=== PATIENT | male | born 1940 | race Caucasian/White ===

== ENCOUNTER 2016-08-21 09:50 | Inpatient (IN) | payer MEDICARE, MEDICAID ==
[2016-08-21] VITALS (8 sets, daily range): BP systolic 94–126; BP diastolic 52–69; PULSE 71–86; RESP 16–18; TEMP 97.5–97.6; O2SAT 96–100
[~2016-08-21] VITALS: Ht 180.3 cm; Wt 98.6 kg
[~2016-08-21 09:50] MED LIST: ASPI81TA82 PO; BUSP10TA PO; DONE10TA14 PO; FLUO20TA20 PO; LISI-363 PO; NAME10TA PO; SENN1TAB11 PO; SIMV40TA PO; VIST25CA PO
[2016-08-21] MEDS ORDERED: SODIUM CHLOR 0.9% 1000 ML INJ 1,000 ML IV ONE ×3 (10:02→12:00)
[2016-08-21] MEDS ORDERED: SODIUM CHLOR 0.9% 1000 ML INJ 700 ML IV ONE (10:02)
--- NOTE | 2016-08-21 10:10 | PD ---
HPI . Altered mental status Chief Complaint: Altered Mental Status Time Seen by Provider: 09:58 Travel History International Travel<30 days: No Contact w/Intl Traveler<30days: No Traveled to known affect area: No History of Present Illness HPI Patient is brought to us by [facility] chief complaint of altered mental status. Medics report that the patient was last seen normal 2 hours ago. He should has dementia. He is unable to give any history at all. EMS reports that the patient was hypotensive and that they have treated him with a liter bolus of fluid. He had only modest improvement of his hypotension with fluid. PFSH Past Medical History Alzheimer's Disease: Yes Autoimmune Disease: No Anxiety: Yes Depression: No Cancer: No Cardiovascular Problems: Yes (HTN) High Cholesterol: Yes Chemotherapy: No Chest Pain: Yes Cerebrovascular Accident: No Dementia: Yes Diabetes: No Diminished Hearing: No Endocrine: No Genitourinary: No Hypertension: Yes Immune Disorder: No Kidney Stones: No Musculoskeletal: No Neurologic: Yes Psychiatric: Yes Reproductive: No Respiratory: No Radiation Therapy: No Renal Failure: No Sickle Cell Disease: No Thyroid Disease: No Past Surgical History Abdominal Surgery: Yes AICD: No Arteriovenous Shunt: No Insulin Pump: No Joint Replacement: No Pacemaker: No Other Surgery: No Social History Alcohol Use: No Tobacco Use: No Substance Use: No Allergies-Medications (Allergen,Severity, Reaction): Coded Allergies: No Known Allergies (Unverified , 08/21/16) Reported Meds & Prescriptions Reported Meds & Active Scripts Active Reported Simvastatin 40 Mg Tab 40 Mg PO HS Donepezil 10 Mg Tab 10 Mg PO HS Buspirone (Buspirone HCl) 10 Mg Tab 20 Mg PO TID Senokot S (Sennosides-Docusate Sodium) 8.6-50 Mg Tab 2 Tab PO DAILY Memantine 10 Mg Tab 10 Mg PO BID Lisinopril 40 Mg Tab 40 Mg PO DAILY Fluoxetine (Fluoxetine HCl) 20 Mg Cap 20 Mg PO DAILY Aspirin 81 Mg Chew 81 Mg CHEW DAILY Review of Systems ROS Limitations: Altered Mental Status Physical Exam Narrative GENERAL: Elderly man lying on the stretcher. His eyes are open but he is not looking around at all. He has no verbal response. He withdraws to painful stimuli. SKIN: Warm and dry. HEAD: Atraumatic. Normocephalic. EYES: Pupils equal and round. ENT: No nasal bleeding or discharge. Mucous membranes pink and moist. NECK: Trachea midline. Neck is supple. CARDIOVASCULAR: Regular rate and rhythm. Heart sounds are normal. RESPIRATORY: No accessory muscle use. Lungs are clear with full air movement throughout. GASTROINTESTINAL: Abdomen soft, non-tender, nondistended. MUSCULOSKELETAL: No obvious deformities. No edema. NEUROLOGICAL: I'm giving him a Reyna Coma score of 9. His baseline is reportedly 13. He does not have any focal findings. PSYCHIATRIC: Unable to assess. Data Data Last Documented VS Vital Signs Date Time Temp Pulse Resp B/P Pulse Ox O2 Delivery O2 Flow Rate FiO2 08/21/16 09:54 97.5 78 18 94/52 96 Orders Electrocardiogram (08/21/16 ) Complete Blood Count With Diff (08/21/16 10:02) Comprehensive Metabolic Panel (08/21/16 10:02) Lactic Acid Sepsis Protocol (08/21/16 10:02) Magnesium (Mg) (08/21/16 10:02) Ckmb (Isoenzyme) Profile (08/21/16 10:02) Troponin I (08/21/16 10:02) Urinalysis - C+S If Indicated (08/21/16 10:02) Blood Culture (08/21/16 10:02) Chest, Single Ap (08/21/16 10:02) Blood Glucose (08/21/16 10:02) Ecg Monitoring (08/21/16 10:02) Iv Access Insert/Monitor (08/21/16 10:02) Oximetry (08/21/16 10:02) Oxygen Administration (08/21/16 10:02) Urinary Catheter Insert/Apply (08/21/16 10:02) Sodium Chlor 0.9% 1000 Ml Inj (Ns 1000 M (08/21/16 10:02) Sodium Chlor 0.9% 1000 Ml Inj (Ns 1000 M (08/21/16 10:02) Sodium Chlor 0.9% 1000 Ml Inj (Ns 1000 M (08/21/16 10:02) CKMB (08/21/16 10:16) CKMB% (08/21/16 10:16) Urine Culture (08/21/16 10:40) Ceftriaxone Inj (Rocephin Inj) (08/21/16 12:00) Ns (Bolus) Inj (08/21/16 12:00) Labs Laboratory Tests Test 08/21/16 08/21/16 10:16 10:40 White Blood Count 20.2 TH/MM3 Red Blood Count 4.91 MIL/MM3 Hemoglobin 14.1 GM/DL Hematocrit 44.6 % Mean Corpuscular Volume 90.8 FL Mean Corpuscular Hemoglobin 28.7 PG Mean Corpuscular Hemoglobin 31.6 % Concent Red Cell Distribution Width 15.4 % Platelet Count 208 TH/MM3 Mean Platelet Volume 9.9 FL Neutrophils (%) (Auto) 80.8 % Lymphocytes (%) (Auto) 9.2 % Monocytes (%) (Auto) 9.5 % Eosinophils (%) (Auto) 0.4 % Basophils (%) (Auto) 0.1 % Neutrophils # (Auto) 16.3 TH/MM3 Lymphocytes # (Auto) 1.9 TH/MM3 Monocytes # (Auto) 1.9 TH/MM3 Eosinophils # (Auto) 0.1 TH/MM3 Basophils # (Auto) 0.0 TH/MM3 CBC Comment DIFF FINAL Differential Comment Sodium Level 157 MEQ/L Potassium Level 5.7 MEQ/L Chloride Level 124 MEQ/L Carbon Dioxide Level 22.3 MEQ/L Anion Gap 11 MEQ/L Blood Urea Nitrogen 148 MG/DL Creatinine 6.11 MG/DL Estimat Glomerular Filtration 9 ML/MIN Rate Random Glucose 89 MG/DL Lactic Acid Level 0.8 mmol/L Calcium Level 8.2 MG/DL Magnesium Level 2.3 MG/DL Total Bilirubin 0.3 MG/DL Aspartate Amino Transf 30 U/L (AST/SGOT) Alanine Aminotransferase 49 U/L (ALT/SGPT) Alkaline Phosphatase 93 U/L Total Creatine Kinase 952 U/L Creatine Kinase MB 5.8 NG/ML Creatine Kinase MB % 0.6 % Troponin I 0.02 NG/ML Total Protein 6.9 GM/DL Albumin 2.8 GM/DL Urine Color YELLOW Urine Turbidity HAZY Urine pH 5.0 Urine Specific [place] 1.025 Urine Protein 30 mg/dL Urine Glucose (UA) NEG mg/dL Urine Ketones NEG mg/dL Urine Occult Blood SMALL Urine Nitrite NEG Urine Bilirubin NEG Urine Urobilinogen 2.0 MG/DL Urine Leukocyte Esterase TRACE Urine RBC 2 /hpf Urine WBC 9 /hpf Urine WBC Clumps RARE Urine Squamous Epithelial <1 /hpf Cells Urine Transitional Epithelial <1 /hpf Cells Urine Amorphous Sediment MOD Urine Bacteria RARE /hpf Urine Hyaline Casts 17 /lpf Urine Mucus FEW /lpf Microscopic Urinalysis Comment CATH-CULTURE IND MDM Medical Decision Making Medical Screen Exam Complete: Yes Emergency Medical Condition: Yes Medical Record Reviewed: Yes Interpretation(s) His EKG shows a sinus rhythm with a right bundle branch block which is not new. His EKG shows no acute ST segment elevation or depression. EKG is unchanged from previous. Differential Diagnosis Differential diagnosis of altered mental status includes but is not limited to infection, electrolyte abnormality, neurological event, intoxication Narrative Course Patient [facility] us from a [facility] with altered mental status. He was hypotensive in the field. Most likely etiology at this point is sepsis. CXR report: "Under aerated; otherwise, negative." The chest x-ray was independently viewed by me. CBC has a white count of 20.2. Lactic acid is 0.8. Chemistries are remarkable for sodium 157, potassium 5.7 chloride 124. BUN/CR 148/6.11. CK is 952. RI is 0.6 and troponin is 0.02. UA shows leukocyte esterase, white blood cell clumps and rare bacteria. So it looks like the source of this patient's mental status is urinary. He is septic and that he has an elevated white blood count and was hypotensive. He also appears to have rhabdomyolysis with an elevated CK. In addition, he has acute renal failure. I have discussed these findings with the patient's . The patient will be admitted to the ICU on the residents' service Critical Care Narrative Aggregate critical care time was 45 minutes. Time to perform other separately billable procedures was not included in the critical care time. My time did not include minutes spent treating any other patients simultaneously or on activities that did not directly contribute to the patient's treatment. The services I provided to this patient were to treat and/or prevent clinically significant deterioration that could result in: Cardiovascular collapse, multiorgan failure, due to sepsis I provided critical care services requiring my management, as noted below: Chart data review, documentation time, medication orders and management, vital sign assessments/reviewing monitor data, ordering and reviewing lab tests, ordering and interpreting/reviewing x-rays and diagnostic studies, care of the patient and discussion of the patient with the admitting physicians. Sepsis Criteria SIRS Criteria (2 or more): WBC > 13667, < 4000 or > 10% bands Severe Sepsis (+one): Hypotension, Acute Oliguria/Renal Failure Septic Shock Criteria: Unresponsive to 30ml/kg fluid bolus Criteria Outcome: Meets severe sepsis criteria, Meets septic shock criteria Diagnosis Primary Impression: Sepsis Qualified Code: A41.9 - Sepsis, due to unspecified organism Additional Impressions: UTI (urinary tract infection) Qualified Code: N30.00 - Acute cystitis without hematuria Acute renal failure Qualified Code: N17.9 - Acute renal failure, unspecified acute renal failure type Rhabdomyolysis Qualified Code: M62.82 - Non-traumatic rhabdomyolysis Admitting Information Admitting Physician Requests: Admit Condition: Stable Sheree Ruiz MD Aug 21, 2016 10:10
--- NOTE | 2016-08-21 10:30 | RADRPT ---
EXAM DATE/TIME: 08/21/2016 10:01 [facility] COMPARISON: CHEST SINGLE AP, February 19, 2016, 16:11. INDICATIONS : Fever MEDICAL HISTORY : None. SURGICAL HISTORY : None. ENCOUNTER: Initial ACUITY: 1 day PAIN SCORE: Non-responsive. LOCATION: Bilateral chest FINDINGS: The lungs are under aerated with minimal bibasilar parenchymal changes. Heart is minimally enlarged. Pulmonary vascularity is normal. CONCLUSION: Under aerated; otherwise, negative. Evens Valle MD FACR on August 21, 2016 at 10:27 Board Certified Radiologist. This report was verified electronically.
[2016-08-21 10:37] LABS: AUTOMATED NEUTROPHIL # 16.3 TH/MM3 (1.8-7.7); BASOPHIL % 0.1 % (0.0-2.0); EOSINOPHIL # 0.1 TH/MM3 (0-0.4); EOSINOPHIL % 0.4 % (0.0-4.0); HEMATOCRIT 44.6 % (39.0-51.0); HEMO FLAGS DIFF FINAL; LYMPH % 9.2 % (9.0-44.0); LYMPHOCYTE # 1.9 TH/MM3 (1.0-4.8); MEAN CELL VOLUME 90.8 FL (80.0-100.0); MEAN CORPUSCULAR HEMOGLOBIN 28.7 PG (27.0-34.0); MEAN CORPUSCULAR HGB CONC 31.6 % (32.0-36.0); MONO % 9.5 % (0.0-8.0); NEUT % 80.8 % (16.0-70.0); PLATELET COUNT 208 TH/MM3 (150-450); RED BLOOD COUNT 4.91 MIL/MM3 (4.50-5.90); RED CELL DISTRIBUTION WIDTH 15.4 % (11.6-17.2); WHITE BLOOD COUNT 20.2 TH/MM3 (4.0-11.0)
[2016-08-21] MEDS ORDERED: LISI40TA PO (10:49)
[2016-08-21] MEDS ORDERED: BUSP10TA PO (10:49)
[2016-08-21] MEDS ORDERED: SIMV40TA PO (10:49)
[2016-08-21] MEDS ORDERED: SENN1TAB17 PO (10:49)
[2016-08-21] MEDS ORDERED: DONE10TA7 PO (10:49)
[2016-08-21] MEDS ORDERED: MEMA1TAB2 PO (10:49)
[2016-08-21] MEDS ORDERED: FLUO20CA4 PO (10:49)
[2016-08-21] MEDS ORDERED: ASPI81CH CHEW (10:49)
[2016-08-21 10:56] LABS: ALKALINE PHOSPHATASE 93 U/L (45-117); ALT (GPT) 49 U/L (12-78); ANION GAP 11 MEQ/L (5-15); AST (GOT) 30 U/L (15-37); BICARBONATE 22.3 MEQ/L (21.0-32.0); CHLORIDE 124 MEQ/L (98-107); CREATINE KINASE 952 U/L (39-308); GLOMERULAR FILTRATION RATE 9 ML/MIN (>89); MAGNESIUM 2.3 MG/DL (1.5-2.5); POTASSIUM 5.7 MEQ/L (3.5-5.1); TOTAL BILIRUBIN ADULT 0.3 MG/DL (0.2-1.0)
[2016-08-21 10:57] LABS: BLOOD UREA NITROGEN 148 MG/DL (7-18)
[2016-08-21 11:02] LABS: SODIUM (NA) 157 MEQ/L (136-145)
[2016-08-21 11:13] LABS: BACTERIA, URINE RARE /hpf; BLOOD, URINE SMALL (NEG); GLUCOSE,URINE NEG (NEG); HYALINE CAST, URINE 17 /lpf (RARE); KETONE, URINE NEG (NEG); MUCUS URINE FEW /lpf (OCC); NITRITE,URINE NEG (NEG); SQUAMOUS EPITHELIAL CELL URINE <1 /hpf (0-5); TRANSITIONAL EPI CELLS, URINE <1 /hpf; URINE COLOR YELLOW (YELLW/STRAW)
[2016-08-21 11:14] LABS: COMMENT (UR) CATH-CULTURE IND; CULTURE IF INDICATED CATH CULTURE IND
[2016-08-21 11:20] LABS: CKMB 5.8 NG/ML (0.5-3.6)
[2016-08-21] MEDS ORDERED: cefTRIAXone INJ 1,000 MG in SODIUM CHLORIDE 0.9% INJ 100 ML IV ONE (12:00)
--- NOTE | 2016-08-21 12:01 | HHI.HP ---
[facility] Service Family Medicine Primary Care Physician Unknown Admission Diagnosis Diagnoses: Chief Complaint: Altered Mental Status International Travel<30 Days: No Contact w/Intl Traveler<30days: No Known Affected Area: No History of Present Illness 75 year old male with PMH of dementia, HTN, HLD brought to ED by [facility] from his living facility [facility] after being found with altered mental status moreso than his baseline. His is present in the ED to provide some history , however she has been undergoing chemotherapy thus has not been visiting the living facility as much as usual. states she was called by [facility] this AM after the patient was not responding. She was told the patient was found in his bed with altered mental status and not verbal, and remained not verbal after sternal rub. Patient has been living at [facility] since mid 2015. states at baseline patient is able to walk around for short periods of time, feeding needs to be assisted. He usually does not remember who she is. states his last fall was about one month ago; reports it was a mild fall with no significant trauma. He does have tremors which are baseline per . She is not aware of any recent fevers, chills, and states she has not been told of any adverse events while patient has been living at [facility] recently. ( Emerson Stringer MD R1) Review of Systems ROS Limitations: Clinical Condition, Altered Mental Status (Emerson Stringer MD R1) Past Family Social History Past Medical History Dementia for about 17 years per HTN HLD Constipation Past Surgical History None (Emerson Stringer MD R1) Allergies: Coded Allergies: No Known Allergies (Unverified , 08/21/16) Family History Negative Social History Tobacco: h/o heavy smoking, none for many years Etoh: previously on social occasions only (Emerson Stringer MD R1) Physical Exam Vital Signs Vital Signs Date Time Temp Pulse Resp B/P Pulse Ox O2 Delivery O2 Flow Rate FiO2 08/21/16 09:54 97.5 78 18 94/52 96 Physical Exam GENERAL: Lying in bed in no apparent distress NEURO: Sleepy, nonverbal, unable to follow commands, pupils are pinpoint about 2mm equal and reactive to light, able to move all extremities spontaneously. Jerky movements of extremities intermittently. Unable to assess for strength or sensation. SKIN: Warm and dry. No rashes or erythema. HEAD: Normocephalic. Atraumatic. EYES: PERRL. No scleral icterus. No injection or drainage. ENT: No nasal drainage. Moist mucous membranes. Appears as if there is vomitus in posterior oropharynx. NECK: Supple, trachea midline. No JVD or lymphadenopathy. CARDIOVASCULAR: Distant heart sounds. No murmur appreciated. Peripheral pulses 2 +. Capillary refill < 2 seconds. RESPIRATORY: Decreased aeration throughout, rhonchi scattered, no wheezing or rales. No accessory muscle use. GASTROINTESTINAL: Abdomen soft, appears to be nontender, nondistended, normal BS. Probably stool on palpation. Extremities: No edema. Laboratory Laboratory Tests Test 08/21/16 08/21/16 10:16 10:40 White Blood Count 20.2 Red Blood Count 4.91 Hemoglobin 14.1 Hematocrit 44.6 Mean Corpuscular Volume 90.8 Mean Corpuscular Hemoglobin 28.7 Mean Corpuscular Hemoglobin 31.6 Concent Red Cell Distribution Width 15.4 Platelet Count 208 Mean Platelet Volume 9.9 Neutrophils (%) (Auto) 80.8 Lymphocytes (%) (Auto) 9.2 Monocytes (%) (Auto) 9.5 Eosinophils (%) (Auto) 0.4 Basophils (%) (Auto) 0.1 Neutrophils # (Auto) 16.3 Lymphocytes # (Auto) 1.9 Monocytes # (Auto) 1.9 Eosinophils # (Auto) 0.1 Basophils # (Auto) 0.0 CBC Comment DIFF FINAL Differential Comment Sodium Level 157 Potassium Level 5.7 Chloride Level 124 Carbon Dioxide Level 22.3 Anion Gap 11 Blood Urea Nitrogen 148 Creatinine 6.11 Estimat Glomerular Filtration 9 Rate Random Glucose 89 Lactic Acid Level 0.8 Calcium Level 8.2 Magnesium Level 2.3 Total Bilirubin 0.3 Aspartate Amino Transf 30 (AST/SGOT) Alanine Aminotransferase 49 (ALT/SGPT) Alkaline Phosphatase 93 Total Creatine Kinase 952 Creatine Kinase MB 5.8 Creatine Kinase MB % 0.6 Troponin I 0.02 Total Protein 6.9 Albumin 2.8 Urine Color YELLOW Urine Turbidity HAZY Urine pH 5.0 Urine Specific [place] 1.025 Urine Protein 30 Urine Glucose (UA) NEG Urine Ketones NEG Urine Occult Blood SMALL Urine Nitrite NEG Urine Bilirubin NEG Urine Urobilinogen 2.0 Urine Leukocyte Esterase TRACE Urine RBC 2 Urine WBC 9 Urine WBC Clumps RARE Urine Squamous Epithelial <1 Cells Urine Transitional Epithelial <1 Cells Urine Amorphous Sediment MOD Urine Bacteria RARE Urine Hyaline Casts 17 Urine Mucus FEW Microscopic Urinalysis Comment CATH-CULTURE IND Date/Time Procedure Status Source Growth 08/21/16 10:40 Urine Culture Received Urine Clean Catch Pending 08/21/16 10:16 Aerobic Blood Culture Received Blood Peripheral Pending 08/21/16 10:16 Anaerobic Blood Culture Received Blood Peripheral Pending (Emerson Stringer MD R1) Result Diagram: 08/21/16 1016 08/21/16 1016 Imaging Last 48 hours Impressions Chest X-Ray 08/21/16 1002 Signed Impressions: Service Date/Time: Sunday, August 21, 2016 10:01 - CONCLUSION: Under aerated ; otherwise, negative. Evens Valle MD FACR Renal Ultrasound 08/21/16 0000 Signed Impressions: Service Date/Time: Sunday, August 21, 2016 15:02 - CONCLUSION: Unremarkable kidneys. Limited evaluation of the nondistended bladder. Titus Polk MD Head CT 08/21/16 0000 Signed Impressions: Service Date/Time: Sunday, August 21, 2016 13:10 - CONCLUSION: Atrophy otherwise negative. Evens Valle MD FACR Abdomen X-Ray 08/21/16 0000 Signed Impressions: Service Date/Time: Sunday, August 21, 2016 16:22 - CONCLUSION: 1. No bowel obstruction, ileus or perforation. 2. Degenerative changes and scoliosis of the thoracolumbar spine. 3. Degenerative changes involving the hip joints bilaterally. Tiuts Polk MD (Emerson Stringer MD R1) Septic Shock Reassessment Heart: Regular rate and rhythm Lungs: Course Skin: Warm, Dry Peripheral Pulses: Bounding Right Radial Bounding Left Radial Bounding Right Dorsalis Pedis Bounding Left Dorsalis Pedis Bounding Right Posterior Tibial Bounding Left Posterior Tibial Capillary Refill: <2 seconds (Emerson Stringer MD R1) Assessment and Plan Assessment and Plan 75 year old male with PMH of dementia, HTN, HLD with: Code Status DNR/DNI Discussed Condition With sdw Dr. Loulou Greenwood (Emerson Stringer MD R1) Attending Attestation The patient has been seen and examined. The chart and all resident notes have been reviewed. I agree that inpatient care is appropriate and that a two midnight stay is expected for the reasons documented in the resident history and physical. I have discussed this with the resident and certify the resident s order for inpatient admission. (Sheree Greenwood MD) Problem List: (1) Sepsis Status: Acute Plan: Source is likely urinary vs aspiration CXR appears to be under aerated but is otherwise negative Received Rocephin 1gm IV in ED Will continue with Rocephin and Clindamycin to cover for UTI and aspiration respectively Follow blood and urine cultures Received 4L of NS boluses in the ED Will continue with maintenance IVF of NS at 150 mL/hr (2) Hypernatremia Status: Acute Plan: Na 157 on admission, indicating significant free water deficit Continue with NS at 150 mL/hr, switch to 1/2NS if Na does not downtrend adequately on repeat BMP Goal for no more than 10 mEq/L decrease within first 24 hours (3) Hypotension Status: Acute Plan: 94/52 on admission s/p 4L NS in ED Continue maintenance IVF If BP is refractory to IVF, will have to initiate pressors likely Levophed and will place consult to critical care who is aware of patient (4) Hyperkalemia Status: Acute Plan: K 5.7 on admission IVF as above Repeat BMP after IVF administration Consider Insulin + glucose or kayexalate if K does not improve (5) Metabolic acidosis with respiratory acidosis Status: Acute Plan: Initial VBG shows mixed metabolic and respiratory acidosis Will repeat VBG and add bicarb if no improvement (6) Rhabdomyolysis Status: Acute Plan: Per nephrology elevated CK should not be significant enough to account for acute renal insufficiency IVF as above (7) Dehydration Status: Acute Plan: IVF as above Monitor intake and output Trend BMPs (8) ARF (acute renal failure) Status: Acute Plan: Likely due to dehydration, per nephrology rhabdomyolysis should not be significant enough to account for this patients ARF UOP is adequate after IVF administration Urine is clear Renal US is unremarkable (9) Altered mental status Status: Acute Plan: Secondary to sepsis due to UTI or aspiration, dehydration or electrolyte imbalance also contributing Management as above (10) Dementia Status: Chronic Plan: Chronic, end-stage dementia Resume home memantine once stable (11) Nutrition, metabolism, and development symptoms Status: Acute Plan: Fluids as above Monitor electrolytes closely and adjust management as indicated NPO for now DVT Prophylaxis with heparin 5000 units subq q12h (Emerson Stringer MD R1) Physician Certification 2 Midnight Certification Type: Admission for Inpatient Services Order for Inpatient Services The services are ordered in accordance with Medicare regulations or non- Medicare payer requirements, as applicable. In the case of services not specified as inpatient-only, they are appropriately provided as inpatient services in accordance with the 2-midnight benchmark. Estimated LOS (days): 2 days is the estimated time the patient will need to remain in the hospital, assuming treatment plan goals are met and no additional complications. Post-Hospital Plan: Home (Emerson Stringer MD R1) Emerson Stringer MD R1 Aug 21, 2016 12:01 Sheree Greenwood MD Aug 22, 2016 08:12
[2016-08-21] MEDS ORDERED: NALOXONE HCL 0.4 MG/ML AMP IV PRN ×2 (12:15→13:00)
[2016-08-21] MEDS ORDERED: SODIUM CHLORIDE 0.9% FLUSH 5 ML FLUSH FLUSH PRN (12:15)
[2016-08-21] MEDS ORDERED: ACETAMINOPHEN 325 MG TAB PO PRN (12:15)
[2016-08-21] MEDS ORDERED: ONDANSETRON HCL 4 MG/2 ML VIAL IVP PRN (12:15)
[2016-08-21] MEDS ORDERED: MORPHINE SULFATE 4 MG/ML INJ IV PRN (13:00)
[2016-08-21] MEDS ORDERED: SODIUM CHLOR 0.9% 1000 ML INJ 1,000 ML IV SCH (13:00)
[2016-08-21 13:09] LABS: BLOOD GAS VENOUS BASE EXCESS -6.6 mmol/L (-2-2); BLOOD GAS VENOUS HCO3 20 mmol/L (22-26); BLOOD GAS VENOUS O2 CONTENT 6.1 Vol % (9.0-17.0); BLOOD GAS VENOUS O2 HGB SAT 32 % (70-76); BLOOD GAS VENOUS PCO2 49 mmHg (44-48); BLOOD GAS VENOUS PO2 24 mmHg (35-40); BLOOD GAS VENOUS pH 7.23 (7.360-7.400); TEMP CORR TO 98.6
[2016-08-21 13:10] LABS: CRITICAL VALUE YES; DRAW SITE NURSE; FIO2 21 %; STAT YES
[2016-08-21] MEDS ORDERED: CHLORHEXIDINE GLUCONATE 2 % 1 PACK (2 CLOTHS) TOP PRN (13:15)
[2016-08-21] MEDS ORDERED: MISCELLANEOUS NURSING INFORMATION XX SCH (13:15)
[2016-08-21] MEDS: HEPARIN SODIUM - SQ 10,000 UNITS/ML VIAL SQ SCH ×2 (13:22→23:22)
--- NOTE | 2016-08-21 13:38 | RADRPT ---
EXAM DATE/TIME: 08/21/2016 13:10 [facility] COMPARISON: CT BRAIN W/O CONTRAST, February 19, 2016, 17:04. INDICATIONS : Altered mental status. RADIATION DOSE: 69.15 CTDIvol (mGy) MEDICAL HISTORY : Dementia. Alzheimer's. Hypertension. SURGICAL HISTORY : None. ENCOUNTER: Initial ACUITY: 1 day PAIN SCALE: Non-responsive LOCATION: cranial TECHNIQUE: Multiple contiguous axial images were obtained of the head. Using automated exposure control and adj ustment of the mA and/or kV according to patient size, radiation dose was kept as low as reasonably a chievable to obtain optimal diagnostic quality images. FINDINGS: There is marked central and cortical atrophy with dilatation of ventricular and sulcal spaces. There is no parenchymal hemorrhage, acute infarction or mass lesion identified. There are no extra-a xial fluid collections appreciated. The posterior fossa is unremarkable with midline fourth ventricl e. The portion of the orbits and paranasal sinuses visualized are unremarkable. CONCLUSION: Atrophy otherwise negative. Evens Valle MD FACR on August 21, 2016 at 13:35 Board Certified Radiologist. This report was verified electronically.
[2016-08-21 14:01] LABS: AMPHETAMINE, URINE NEG (NEG); BARBITURATES, URINE NEG (NEG); COCAINE, URINE NEG (NEG)
--- NOTE | 2016-08-21 14:24 | EKG ---
Date Performed: 08/21/2016 Time Performed: 10:02:13 PTAGE: 75 years EKG: Sinus rhythm RIGHT BUNDLE BRANCH BLOCK LEFT ANTERIOR FASCICULAR BLOCK ABNORMAL ECG PREVIOUS TRACING : 02/19/2016 15.44 Compared to the previous tracing, previous non-specific ST/ T wave changes not noted now DOCTOR: Blake Henao Interpretating Date/Time 08/21/2016 14:22:34
[2016-08-21] MEDS: CLINDAMYCIN INJ 600 MG in SODIUM CHLORIDE 0.9% INJ 100 ML IV SCH ×2 (14:37→20:33)
--- NOTE | 2016-08-21 16:17 | RADRPT ---
EXAM DATE/TIME: 08/21/2016 15:02 [facility] COMPARISON: No previous studies available for comparison. INDICATIONS : Abnormal labs. MEDICAL HISTORY : Dementia. Alzheimer's. Hypercholesterolemia. Hypertension. SURGICAL HISTORY : Impacted bowel surgery. ENCOUNTER: Initial ACUITY: 1 day PAIN SCORE: Nonresponsive. LOCATION: Bilateral flank MEASUREMENTS: RIGHT KIDNEY: 10.8 x 6.0 x 6.2 cm LEFT KIDNEY: 11.2 x 4.8 x 6.4 cm FINDINGS: RIGHT KIDNEY: Renal cortex is normal in thickness and echotexture. No hydronephrosis, stone, or mass. LEFT KIDNEY: Renal cortex is normal in thickness and echotexture. No hydronephrosis, stone, or mass. BLADDER: A Weems catheter is noted within the urinary bladder which is nondistended. The bladder evaluation is limited due to nondistention. CONCLUSION: Unremarkable kidneys. Limited evaluation of the nondistended bladder. Titus Polk MD on August 21, 2016 at 16:14 Board Certified Radiologist. This report was verified electronically.
--- NOTE | 2016-08-21 16:27 | PD.CONS ---
HPI Consult Requested By Reason for Consult Acute renal insufficiency Hyponatremia/hyperkalemia. Primary Care Physician Unknown History of Present Illness Patient unable to provide meaningful history himself secondary to mental status/ dementia. Patient apparently is institutionalized at a [place] [facility]. Previous history of dehydration back in February at which time his creatinine was 2.6 subsequent only 1.4 at time of discharge. His is by the bedside indicating that the patient had a tendency to have poor oral intake of fluid. Is also a history of hypertension. Patient was in with altered mental status subsequent noted to have a serum sodium level CLVII, potassium 5.7 and a creatinine of 6.11. CPK level was 954 on presentation. There is no history suggesting diarrhea or emesis. Patient was on lisinopril as an outpatient. Also simvastatin. Review of Systems ROS Limitations: Clinical Condition, Altered Mental Status Past Family Social History Allergies: Coded Allergies: No Known Allergies (Unverified , 08/21/16) Past Medical History Dementia Hypertension Previous dehydration. Past Surgical History Unobtainable from patient. Reported Medications Reported Meds & Active Scripts Active Reported Simvastatin 40 Mg Tab 40 Mg PO HS Donepezil 10 Mg Tab 10 Mg PO HS Buspirone (Buspirone HCl) 10 Mg Tab 20 Mg PO TID Senokot S (Sennosides-Docusate Sodium) 8.6-50 Mg Tab 2 Tab PO DAILY Memantine 10 Mg Tab 10 Mg PO BID Lisinopril 40 Mg Tab 40 Mg PO DAILY Fluoxetine (Fluoxetine HCl) 20 Mg Cap 20 Mg PO DAILY Aspirin 81 Mg Chew 81 Mg CHEW DAILY Active Ordered Medications Current Medications Sodium Chloride 1,000 ml @ 1,000 mls/hr Q1H ONCE IV Last administered on 10:35; Start 08/21/16 at 10:02; Stop 08/21/16 at 11:01; Status DC Sodium Chloride 1,000 ml @ 1,000 mls/hr Q1H ONCE IV Last administered on 10:35; Start 08/21/16 at 10:02; Stop 08/21/16 at 11:01; Status DC Sodium Chloride 700 ml @ 1,000 mls/hr Q42M ONCE IV Last administered on 11:19; Start 08/21/16 at 10:02; Stop 08/21/16 at 10:43; Status DC Ceftriaxone Sodium 1000 mg/ Sodium Chloride 100 ml @ 200 mls/hr ONCE ONCE IV Last administered on 08/21/16 12:18; Start 08/21/16 at 12:00; Stop 08/21/16 at 12: 29; Status DC Sodium Chloride 1,000 ml @ 999 mls/hr BOLUS ONCE IV Last administered on 12:18; Start 08/21/16 at 12:00; Stop 08/21/16 at 13:00; Status DC Sodium Chloride (NS 1000 ml Inj) 1,000 ml @ 130 mls/hr Q7H42M IV Last administered on 08/21/16 12:55; Start 08/21/16 at 13:00 IV Flush (NS Flush) 2 ml UNSCH PRN FLUSH FLUSH AFTER USING IV ACCESS; Start 08/21/16 at 12:15 IV Flush (NS Flush) 2 ml BID FLUSH ; Start 08/21/16 at 21:00 Acetaminophen (Tylenol) 650 mg Q4H PRN PO TEMP > 100.4; Start 08/21/16 at 12:15 Ondansetron HCl (Zofran Inj) 4 mg Q6H PRN IVP NAUSEA OR VOMITING; Start at 12:15 Heparin Sodium (Porcine) (Heparin Inj) 5,000 units Q12H SQ Last administered on 08/21/16 13:22; Start 08/21/16 at 13:00 Naloxone HCl 0.4 mg 0.4 mg UNSCH PRN IV SEE LABEL COMMENTS; Start 08/21/16 at 12 :15 Ceftriaxone Sodium 1000 mg/ Sodium Chloride 100 ml @ 200 mls/hr Q24H IV ; Start 08/22/16 at 12:00; Stop 08/22/16 at 12:00; Status DC Clindamycin Phosphate/Sodium Chloride (Cleocin Inj/NS Inj) 104 ml @ 208 mls/hr Q8H IV Last administered on 08/21/16 14:37; Start 08/21/16 at 14:00 Morphine Sulfate (Morphine Inj) 2 mg Q4HR PRN IV Pain5-10; if unable to take PO ; Start 08/21/16 at 13:00 Naloxone HCl (Narcan Inj) 0.4 mg UNSCH PRN IV SEE LABEL COMMENTS; Start at 13:00; Stop 08/21/16 at 13:20; Status DC Pantoprazole Sodium (Protonix Inj) 40 mg Q24H IV PUSH ; Start 08/21/16 at 21:00 Miscellaneous Information 1 Q361D XX ; Start 08/21/16 at 13:15 Chlorhexidine Gluconate (Chlorhexidine 2% Cloth) 3 pack Taper DAILY@04 TOP ; Start 08/22/16 at 04:00; Stop 08/18/17 at 03:59 Chlorhexidine Gluconate 3 pack 3 pack UNSCH PRN TOP HYGIENIC CARE; Start at 13:15 Ceftriaxone Sodium/Sodium Chloride (Rocephin Inj/NS Inj) 100 ml @ 200 mls/hr Q24H IV ; Start 08/22/16 at 12:00 Family History Unobtainable from patient. Social History Per records history of heavy tobacco usage in the past. Physical Exam Vital Signs Vital Signs Date Time Temp Pulse Resp B/P Pulse Ox O2 Delivery O2 Flow Rate FiO2 08/21/16 15:13 71 17 106/60 98 Room Air 08/21/16 13:14 98 21 08/21/16 12:43 86 17 112/69 100 Room Air 08/21/16 09:54 97.5 78 18 94/52 96 Physical Exam GENERAL: Elderly male lying in bed not in respiratory distress. SKIN: Warm and dry. Skin turgor is somewhat diminished. HEAD: Normocephalic. EYES: No scleral icterus. No injection or drainage. NECK: Supple, trachea midline. No JVD or lymphadenopathy. CARDIOVASCULAR: Regular rate and rhythm without murmurs, gallops, or rubs. RESPIRATORY: Breath sounds equal bilaterally. No accessory muscle use. GASTROINTESTINAL: Abdomen soft, non-tender, nondistended. Weems catheter in place urine is yellow and clear. MUSCULOSKELETAL: No cyanosis, or edema. BACK: Nontender without obvious deformity. No CVA tenderness. Laboratory Laboratory Tests Test 08/21/16 08/21/16 08/21/16 08/21/16 10:16 10:40 12:35 13:05 White Blood Count 20.2 Red Blood Count 4.91 Hemoglobin 14.1 Hematocrit 44.6 Mean Corpuscular Volume 90.8 Mean Corpuscular Hemoglobin 28.7 Mean Corpuscular Hemoglobin 31.6 Concent Red Cell Distribution Width 15.4 Platelet Count 208 Mean Platelet Volume 9.9 Neutrophils (%) (Auto) 80.8 Lymphocytes (%) (Auto) 9.2 Monocytes (%) (Auto) 9.5 Eosinophils (%) (Auto) 0.4 Basophils (%) (Auto) 0.1 Neutrophils # (Auto) 16.3 Lymphocytes # (Auto) 1.9 Monocytes # (Auto) 1.9 Eosinophils # (Auto) 0.1 Basophils # (Auto) 0.0 CBC Comment DIFF FINAL Differential Comment Sodium Level 157 Potassium Level 5.7 Chloride Level 124 Carbon Dioxide Level 22.3 Anion Gap 11 Blood Urea Nitrogen 148 Creatinine 6.11 Estimat Glomerular Filtration 9 Rate Random Glucose 89 Lactic Acid Level 0.8 Calcium Level 8.2 Magnesium Level 2.3 Total Bilirubin 0.3 Aspartate Amino Transf 30 (AST/SGOT) Alanine Aminotransferase 49 (ALT/SGPT) Alkaline Phosphatase 93 Total Creatine Kinase 952 Creatine Kinase MB 5.8 Creatine Kinase MB % 0.6 Troponin I 0.02 Total Protein 6.9 Albumin 2.8 Urine Color YELLOW Urine Turbidity HAZY Urine pH 5.0 Urine Specific Dalton 1.025 Urine Protein 30 Urine Glucose (UA) NEG Urine Ketones NEG Urine Occult Blood SMALL Urine Nitrite NEG Urine Bilirubin NEG Urine Urobilinogen 2.0 Urine Leukocyte Esterase TRACE Urine RBC 2 Urine WBC 9 Urine WBC Clumps RARE Urine Squamous Epithelial <1 Cells Urine Transitional Epithelial <1 Cells Urine Amorphous Sediment MOD Urine Bacteria RARE Urine Hyaline Casts 17 Urine Mucus FEW Microscopic Urinalysis Comment CATH-CULTURE IND Urine Opiates Screen NEG Urine Barbiturates Screen NEG Urine Amphetamines Screen NEG Urine Benzodiazepines Screen NEG Urine Cocaine Screen NEG Urine Cannabinoids Screen NEG Blood Gas Puncture Site NURSE Blood Gas Patient Temperature 98.6 Venous Blood pH 7.23 Venous Blood Partial Pressure 49 CO2 Venous Blood Partial Pressure 24 O2 Venous Blood HCO3 20 Venous Blood Oxygen Saturation 32 Venous Blood Oxygen Content 6.1 Venous Blood Base Excess -6.6 Blood Gas Inspired Oxygen 21 Ammonia 19 Date/Time Procedure Status Source Growth 08/21/16 10:40 Urine Culture Received Urine Clean Catch Pending 08/21/16 10:16 Aerobic Blood Culture Received Blood Peripheral Pending 08/21/16 10:16 Anaerobic Blood Culture Received Blood Peripheral Pending Result Diagram: 08/21/16 1016 08/21/16 1016 Imaging Last 48 hours Impressions Chest X-Ray 08/21/16 1002 Signed Impressions: Service Date/Time: Sunday, August 21, 2016 10:01 - CONCLUSION: Under aerated ; otherwise, negative. Evens Valle MD FACR Head CT 08/21/16 0000 Signed Impressions: Service Date/Time: Sunday, August 21, 2016 13:10 - CONCLUSION: Atrophy otherwise negative. Evens Valle MD FACR Assessment and Plan Problem List: (1) Acute kidney insufficiency Plan: Given clinical presentation presence of hyponatremia primary consideration at this point in time is acute renal insufficiency secondary to dehydration with a significant free water deficit of approximately 5+ liters. CPK level is elevated however elevation does not seem to indicate significant degree of rhabdomyolysis to account for the patient's acute renal insufficiency and the urinalysis only shows small amount of blood not suggestive of significant myoglobinuria. Also the patient's urine output appears to be improved with hydration and is clear. Await results of renal ultrasound to determine whether or not there was significant evidence for obstructive uropathy also. Hopefully the patient has not developed acute kidney injury. Medications should be adjusted for the patient's estimated GFR if clinically indicated. Avoid agents with significant potential for nephrotoxicity possible including NSAIDs for analgesia, iodine contrast agents. Gadolinium is contraindicated if the GFR is below 30. (2) Hypernatremia Plan: Indicative of significant free water deficit. Replace half water deficit within 24 hours in addition to maintenance fluid requirement. (3) Hyperkalemia Plan: Should improve with hydration and improved renal clearances. Agree with repeat potassium level. (4) CKD (chronic kidney disease) stage 3, GFR 30-59 ml/min Plan: I suspect the patient does have some degree of underlying running medical renal disease secondary to nephrosclerosis of hypertension and aging. (5) Hypertension Plan: Given the patient's predisposition to dehydration I believe it would be prudent to avoid utilization of ESTEPHANIA inhibitor and angiotensin receptor blockers for blood pressure management as these medications can exacerbate azotemia in the setting of dehydration. Consider utilizing a calcium channel nidhi or other class of agent. Assessment and Plan Suspect the patient's azotemia will improve with current management. If so he will be seen on an as necessary basis. please call if additional questions. Discussed Condition With Medical residents and patient's . Liz Bennett MD Aug 21, 2016 16:27
--- NOTE | 2016-08-21 16:38 | RADRPT ---
EXAM DATE/TIME: 08/21/2016 16:22 [facility] COMPARISON: No previous studies available for comparison. INDICATIONS : Evaluate for obstruction. MEDICAL HISTORY : Hypertension. Hypercholesterolemia. SURGICAL HISTORY : None. ENCOUNTER: Initial ACUITY: 1 day PAIN SCORE: Non-responsive. LOCATION: Bilateral abdomen. FINDINGS: Supine view of the abdomen was performed. The abdominal bowel gas pattern is normal. No abnormal ma sses, calcifications, or organomegaly is seen. Degenerative changes and scoliosis of the thoraco-lumb ar spine are noted. Degenerative changes are noted involving the hip joints bilaterally. CONCLUSION: 1. No bowel obstruction, ileus or perforation. 2. Degenerative changes and scoliosis of the thoracolumbar spine. 3. Degenerative changes involving the hip joints bilaterally. Titus Polk MD on August 21, 2016 at 16:34 Board Certified Radiologist. This report was verified electronically.
[2016-08-21 16:53] LABS: BICARBONATE 22.4 MEQ/L (21.0-32.0); POTASSIUM 5.6 MEQ/L (3.5-5.1)
--- NOTE | 2016-08-21 17:12 | HHI.FPPN ---
Subjective Subjective Patient seen and examined. Case reviewed and discussed. Please refer to resident H&P for further details regarding history of present illness, ROS, past medical and surgical history, family and social history. In summary, patient is a 75-year-old male presenting from [facility] with a history of known dementia and acute change in mental status. At baseline, the patient is known to interact with those around him, but was brought to the emergency room earlier today after he was unarousable to painful stimuli. At the time of my encounter, patient is seen in the emergency room. and close family friend are at the bedside by which history is gathered. In the emergency room, patient received 4 L normal saline boluses. Blood pressures are now slightly improved. [facility] Objective Objective Last Impressions Chest X-Ray 08/21/16 1002 Signed Impressions: Service Date/Time: Sunday, August 21, 2016 10:01 - CONCLUSION: Under aerated ; otherwise, negative. Evens Valle MD FACR Renal Ultrasound 08/21/16 0000 Signed Impressions: Service Date/Time: Sunday, August 21, 2016 15:02 - CONCLUSION: Unremarkable kidneys. Limited evaluation of the nondistended bladder. Titus Polk MD Head CT 08/21/16 0000 Signed Impressions: Service Date/Time: Sunday, August 21, 2016 13:10 - CONCLUSION: Atrophy otherwise negative. Evens Valle MD FACR Abdomen X-Ray 08/21/16 0000 Signed Impressions: Service Date/Time: Sunday, August 21, 2016 16:22 - CONCLUSION: 1. No bowel obstruction, ileus or perforation. 2. Degenerative changes and scoliosis of the thoracolumbar spine. 3. Degenerative changes involving the hip joints bilaterally. Titus Polk MD Laboratory Tests - Abnormals Test 08/21/16 08/21/16 08/21/16 10:16 10:40 12:35 White Blood Count 20.2 TH/MM3 Mean Corpuscular Hemoglobin 31.6 % Concent Neutrophils (%) (Auto) 80.8 % Monocytes (%) (Auto) 9.5 % Neutrophils # (Auto) 16.3 TH/MM3 Monocytes # (Auto) 1.9 TH/MM3 Sodium Level 157 MEQ/L Potassium Level 5.7 MEQ/L Chloride Level 124 MEQ/L Blood Urea Nitrogen 148 MG/DL Creatinine 6.11 MG/DL Estimat Glomerular Filtration 9 ML/MIN Rate Calcium Level 8.2 MG/DL Total Creatine Kinase 952 U/L Creatine Kinase MB 5.8 NG/ML Albumin 2.8 GM/DL Urine Turbidity HAZY Urine Protein 30 mg/dL Urine Occult Blood SMALL Urine Leukocyte Esterase TRACE Urine WBC 9 /hpf Urine WBC Clumps RARE Urine Bacteria RARE /hpf Urine Mucus FEW /lpf Venous Blood pH 7.23 Venous Blood Partial Pressure 49 mmHg CO2 Venous Blood Partial Pressure 24 mmHg O2 Venous Blood HCO3 20 mmol/L Venous Blood Oxygen Saturation 32 % Venous Blood Oxygen Content 6.1 Vol % Venous Blood Base Excess -6.6 mmol/L Vital Signs 08/21/16 08/21/16 08/21/16 08/21/16 09:54 12:43 13:14 15:13 Temp 97.5 Pulse 78 86 71 Resp 18 B/P 94/52 112/69 106/60 Pulse Ox 96 100 98 98 O2 Delivery Room Air Room Air FiO2 21 Physical exam GENERAL: Elderly male, WDWN. Resting in bed, intermittent agitation. SKIN: Warm and dry. No rashes or lesions. HEAD: Normocephalic. Atraumatic EYES: No scleral icterus. No injection or drainage. ENT: OP with vomitus, dentures. NECK: Supple, trachea midline. No JVD or lymphadenopathy. CARDIOVASCULAR: Regular rate and rhythm without audible murmurs, gallops, or rubs. RESPIRATORY: Breath sounds equal bilaterally, poor air movement, rhonchorous. No accessory muscle use. GASTROINTESTINAL: Abdomen soft, non-tender, nondistended. Mildly hypoactive bowel sounds. No rebound. MUSCULOSKELETAL: No cyanosis, or edema. No apparent calf tenderness. Pulse ox on right foot. BACK: Nontender without obvious deformity. No CVA tenderness. Neuro: Sleepy, eyes clenched closed, intermittently opens them. Does not follow commands, nonverbal. Moves all extremities well. Assessment Assessment 75-year-old male admitted with: Sepsis secondary to UTI versus aspiration Altered mental status Metabolic and respiratory acidosis Leukocytosis Acute renal failure with electrolyte disturbance Hyperkalemia Hypernatremia Dehydration Rule out cerebrovascular event Rhabdomyolysis PLAN PLAN Aggressive fluid resuscitation Blood cultures and urine cultures Renal ultrasound Empiric antibiotic therapy Speech therapy CT head, consider noncontrast MRI in the morning if no improvement in mental status Nephrology consult, appreciate expertise of Dr. Bennett Serial BMPs, VBG Palliative care consult being considered by family Strict intake and output Stress ulcer prophylaxis Heparin for DVT prophylaxis Low threshold to involve critical care medicine. Patient seen and examined. Case reviewed and discussed with the resident team. Agree with plan of care as discussed with me and documented in the resident note. Sheree Greenwood MD Aug 21, 2016 17:12
[2016-08-21 17:39] LABS: BLOOD GAS VENOUS BASE EXCESS -5.8 mmol/L (-2-2); BLOOD GAS VENOUS HCO3 20 mmol/L (22-26); BLOOD GAS VENOUS O2 CONTENT 6.2 Vol % (9.0-17.0); BLOOD GAS VENOUS O2 HGB SAT 32 % (70-76); BLOOD GAS VENOUS PCO2 49 mmHg (44-48); BLOOD GAS VENOUS PO2 23 mmHg (35-40); BLOOD GAS VENOUS pH 7.24 (7.360-7.400); TEMP CORR TO 98.6
[2016-08-21 17:40] LABS: CRITICAL VALUE YES; DRAW SITE CENTRAL LINE; FIO2 21 %; STAT NO
[2016-08-21 17:46] LABS: CKMB 5.4 NG/ML (0.5-3.6)
[2016-08-21] MEDS ORDERED: SODIUM CHLOR 0.45% 1000 ML INJ 1,000 ML IV SCH (19:30)
[2016-08-21] MEDS: SODIUM CHLORIDE 0.9% FLUSH 5 ML FLUSH FLUSH SCH (20:32)
[2016-08-21] MEDS: PANTOPRAZOLE SODIUM 40 MG VIAL IV PUSH SCH (20:32)
[2016-08-21] MEDS: CHLORHEXIDINE GLUCONATE 2 % 1 PACK (2 CLOTHS) TOP SCH (20:33)
[2016-08-21] MEDS ORDERED: SODIUM BICARBONATE 8.4% INJ 50 MEQ in SODIUM CHLOR 0.45% 1000 ML INJ 1,000 ML IV SCH (21:00)
[2016-08-21 21:05] LABS: BICARBONATE 16.1 MEQ/L (21.0-32.0); POTASSIUM 6.4 MEQ/L (3.5-5.1)
[2016-08-21] MEDS ORDERED: CALCIUM GLUCONATE 10% 1 GM/10 ML VIAL IV PUSH ONE (21:45)
[2016-08-21] MEDS ORDERED: SODIUM POLYSTYRENE SULFONATE 30 GM/120 ML ENEMA RECTAL ONE (21:45)
[2016-08-21] MEDS ORDERED: DEXTROSE 50% IN WATER 50 ML VIAL(D50) IV PUSH ONE (22:30)
[2016-08-21] MEDS ORDERED: INSULIN HUMAN REGULAR 1,000 UNITS/10 ML VIAL IV PUSH ONE (22:30)
[2016-08-21 22:52] LABS: BLOOD GAS VENOUS BASE EXCESS -5.1 mmol/L (-2-2); BLOOD GAS VENOUS HCO3 21 mmol/L (22-26); BLOOD GAS VENOUS O2 HGB SAT 27 % (70-76); BLOOD GAS VENOUS PCO2 48 mmHg (44-48); BLOOD GAS VENOUS PO2 21 mmHg (35-40); BLOOD GAS VENOUS pH 7.26 (7.360-7.400); TEMP CORR TO 98.6
[2016-08-21 22:53] LABS: CRITICAL VALUE YES; DRAW SITE IV; LITER FLOW 2 L/M; OXYGEN DEVICE NASAL CANNULA; STAT NO
[2016-08-21] MEDS ORDERED: SODIUM BICARBONATE 8.4% INJ 50 MEQ in DEXTROSE 5% IN WATE 1000ML INJ 1,000 ML IV SCH ×2 (23:00)
--- NOTE | 2016-08-21 23:16 | HHI.FPPN ---
Addendum to progress note ADDENDUM Reason for addendum: Additonal documentation Additional information Labs at 1930 continued to show elevated sodium despite switching fluids to 1/2NS +Bicarb. Now there also an elevation of potassium to 6.4 from 5.6. Stat EKG did NOT show peaked T-waves nor was their a sinusoid pattern. Insulin + glucose, Kayexalate and calcium gluconate administered. Dr. Elaine, director trade, also briefly reviewed the case with me. Sodium has likely remained high due to the sodium from fluids plus bicarbonate. The potassium also increased likely due to continued acidosis. Dr. Elaine recommended switching fluids to D5W + 50-75 meq of bicarbonate at 125. Recommended repeat BMP in 4 hours. (Kate Jamil MD R2) Kate Jamil MD R2 Aug 21, 2016 23:16 Sheree Greenwood MD Aug 22, 2016 08:11
--- NOTE | 2016-08-21 23:25 | EKG ---
Date Performed: 08/21/2016 Time Performed: 22:09:17 PTAGE: 75 years EKG: Sinus rhythm RIGHT BUNDLE BRANCH BLOCK ABNORMAL ECG PREVIOUS TRACING : 08/21/2016 10.02 No significant change from previous tracing noted. DOCTOR: Cesar Calvo Interpretating Date/Time 08/21/2016 23:23:46
[2016-08-21 23:52] LABS: ACETAMINOPHEN LESS THAN 2.0 MCG/ML (10.0-30.0); ANION GAP 7 MEQ/L (5-15); BICARBONATE 19.6 MEQ/L (21.0-32.0); BLOOD UREA NITROGEN 101 MG/DL (7-18); CHLORIDE 134 MEQ/L (98-107); CREATINE KINASE 826 U/L (39-308); GLOMERULAR FILTRATION RATE 20 ML/MIN (>89); POTASSIUM 5.5 MEQ/L (3.5-5.1)
[2016-08-21 23:57] LABS: SODIUM (NA) 161 MEQ/L (136-145)
[2016-08-22] VITALS (14 sets, daily range): BP systolic 98–121; BP diastolic 55–58; PULSE 64–100; RESP 14–18; TEMP 97.9–98.4; O2SAT 94–100
[2016-08-22 00:04] LABS: BLOOD GAS CARBOXYHEMOGLOBIN 0.7 % (0-4); BLOOD GAS METHEMOGLOBIN 1.4 % (0-2)
[2016-08-22 00:21] LABS: CKMB 4.5 NG/ML (0.5-3.6)
[2016-08-22 03:39] LABS: AUTOMATED NEUTROPHIL # 11.6 TH/MM3 (1.8-7.7); BASOPHIL % 0.2 % (0.0-2.0); EOSINOPHIL # 0.4 TH/MM3 (0-0.4); EOSINOPHIL % 2.5 % (0.0-4.0); HEMATOCRIT 41.1 % (39.0-51.0); HEMO FLAGS DIFF FINAL; LYMPH % 10.2 % (9.0-44.0); LYMPHOCYTE # 1.5 TH/MM3 (1.0-4.8); MEAN CELL VOLUME 90.7 FL (80.0-100.0); MEAN CORPUSCULAR HEMOGLOBIN 28.5 PG (27.0-34.0); MEAN CORPUSCULAR HGB CONC 31.4 % (32.0-36.0); MONO % 8.7 % (0.0-8.0); NEUT % 78.4 % (16.0-70.0); PLATELET COUNT 168 TH/MM3 (150-450); RED BLOOD COUNT 4.53 MIL/MM3 (4.50-5.90); RED CELL DISTRIBUTION WIDTH 15.9 % (11.6-17.2); WHITE BLOOD COUNT 14.8 TH/MM3 (4.0-11.0)
[2016-08-22 03:40] LABS: BLOOD GAS VENOUS BASE EXCESS -5.1 mmol/L (-2-2); BLOOD GAS VENOUS HCO3 20 mmol/L (22-26); BLOOD GAS VENOUS O2 HGB SAT 32 % (70-76); BLOOD GAS VENOUS PCO2 42 mmHg (44-48); BLOOD GAS VENOUS PO2 21 mmHg (35-40); TEMP CORR TO 98.6
[2016-08-22 03:41] LABS: CRITICAL VALUE YES; DRAW SITE RN DRAW; LITER FLOW 4 L/M; OXYGEN DEVICE NASAL CANNULA; STAT NO
[2016-08-22 04:26] LABS: BICARBONATE 23.4 MEQ/L (21.0-32.0); POTASSIUM 5.1 MEQ/L (3.5-5.1)
[2016-08-22 04:50] LABS: CKMB 3.7 NG/ML (0.5-3.6)
[2016-08-22] MEDS: CLINDAMYCIN INJ 600 MG in SODIUM CHLORIDE 0.9% INJ 100 ML IV SCH ×3 (06:14→21:42)
[2016-08-22] MEDS: DEXTROSE 5% IN WATE 1000ML INJ 1,000 ML IV SCH ×3 (06:14→23:49)
--- NOTE | 2016-08-22 06:54 | RADRPT ---
EXAM DATE/TIME: 08/22/2016 06:32 [facility] COMPARISON: CHEST SINGLE AP, August 21, 2016, 10:01. INDICATIONS : Please follow up infiltrate. MEDICAL HISTORY : Dementia. Alzheimer's. hypertension. SURGICAL HISTORY : None. ENCOUNTER: Subsequent ACUITY: 4 - 6 days PAIN SCORE: Non-responsive. LOCATION: Bilateral chest FINDINGS: A single view of the chest demonstrates diminished lung volumes with minimal left basilar density. Ri ght lung clear. Slight elevation left hemidiaphragm. The cardiomediastinal contours are unremarkable. Osseous structures are intact. CONCLUSION: Minimal left basilar density likely atelectasis. Joe Sultana MD on August 22, 2016 at 6:51 Board Certified Radiologist. This report was verified electronically.
[2016-08-22] MEDS: SODIUM CHLORIDE 0.9% FLUSH 5 ML FLUSH FLUSH SCH ×2 (09:00→21:00)
[2016-08-22 09:38] LABS: BICARBONATE 23.9 MEQ/L (21.0-32.0); POTASSIUM 4.7 MEQ/L (3.5-5.1)
--- NOTE | 2016-08-22 10:17 | HHI.NPPN ---
Subjective History of Present Illness Patient unable to provide meaningful history himself secondary to mental status/ dementia. Patient apparently is institutionalized at a [facility]. Previous history of dehydration back in February at which time his creatinine was 2.6 subsequent only 1.4 at time of discharge. His is by the bedside indicating that the patient had a tendency to have poor oral intake of fluid. Is also a history of hypertension. Patient was in with altered mental status subsequent noted to have a serum sodium level CLVII, potassium 5.7 and a creatinine of 6.11. CPK level was 954 on presentation. There is no history suggesting diarrhea or emesis. Patient was on lisinopril as an outpatient. Also simvastatin. Interval History Patient lethargic. Review of Systems General General Remarks Not presently obtainable. Objective Data Data 08/21/16 08/22/16 19:00 07:00 Intake Total 1312 ml Output Total 1550 ml 2700 ml Balance -1550 ml -1388 ml Intake IV Total 1312 ml Output Urine Total 1550 ml 2700 ml # Bowel Movements 1 Vital Signs Date Time Temp Pulse Resp B/P Pulse Ox O2 Delivery O2 Flow Rate FiO2 08/22/16 08:00 97.9 76 16 121/56 94 08/22/16 08:00 76 08/22/16 07:37 100 Nasal Cannula 2.00 08/22/16 06:00 100 08/22/16 04:00 76 08/22/16 04:00 98.4 76 16 99/55 95 08/22/16 02:00 78 08/22/16 00:00 78 08/22/16 00:00 98.4 78 14 112/57 100 08/21/16 22:00 75 08/21/16 20:00 97.6 75 17 107/65 96 08/21/16 20:00 75 08/21/16 19:29 99 Nasal Cannula 4.00 08/21/16 17:10 71 16 126/60 99 Room Air 08/21/16 15:13 71 17 106/60 98 Room Air 08/21/16 13:14 98 21 08/21/16 12:43 86 17 112/69 100 Room Air -: 08/22/16 0317 08/22/16 0827 Microbiology 08/21/16 Aerobic Blood Culture, Received Pending 08/21/16 Anaerobic Blood Culture, Received Pending 08/21/16 Urine Culture, Received Pending Tubes & Lines: Weems Physical Exam General Appearance: No Acute Distress Eyes Eye Exam: Sclera White Pulmonary Resp Exam: Clear Bilaterally, Breath Sounds Equal, No Distress Cardiology CV Exam: Regular Gastrointestinal/Abdomen GI Exam: Soft, Non-Tender Integumentary Skin Exam: Clear, Warm, Dry Extremeties Extremities Exam: No Edema Assessment/Plan Problem List: (1) Acute kidney insufficiency Plan: CPK level is elevated however elevation does not seem to indicate significant degree of rhabdomyolysis to account for the patient's acute renal insufficiency and the urinalysis only shows small amount of blood not suggestive of significant myoglobinuria. Also the patient's urine output appears to be improved with hydration and is clear. Hopefully the patient has not developed acute kidney injury. Medications should be adjusted for the patient's estimated GFR if clinically indicated. Avoid agents with significant potential for nephrotoxicity possible including NSAIDs for analgesia, iodine contrast agents. Gadolinium is contraindicated if the GFR is below 30. (2) Hypernatremia Plan: Noted hyponatremia has worsened. Agree with change in IV fluids at this time and would recommend continued monitoring (3) Hyperkalemia Plan: Noted worsening overnight now improving. (4) CKD (chronic kidney disease) stage 3, GFR 30-59 ml/min Plan: I suspect the patient does have some degree of underlying running medical renal disease secondary to nephrosclerosis of hypertension and aging. (5) Hypertension Plan: Given the patient's predisposition to dehydration I believe it would be prudent to avoid utilization of ESTEPHANIA inhibitor and angiotensin receptor blockers for blood pressure management as these medications can exacerbate azotemia in the setting of dehydration. Consider utilizing a calcium channel nidhi or other class of agent. Plan Patient's renal indices are improving nicely. Adjustment in IV fluids should results in improving hyponatremia. I will see the patient on a when necessary basis. Please recall if necessary. Liz Bennett MD Aug 22, 2016 10:17
[2016-08-22] MEDS ORDERED: cefTRIAXone INJ 1,000 MG in SODIUM CHLORIDE 0.9% INJ 100 ML IV SCH (12:00)
[2016-08-22] MEDS: cefTRIAXone INJ 1,000 MG in SODIUM CHLORIDE 0.9% INJ 100 ML IV SCH (12:00)
--- NOTE | 2016-08-22 12:24 | HHI.FPPN ---
Subjective Remarks Patient had good UOP overnight, 4250mL since admission through this AM. BP has remained stable at 90s-110s/50s-60s. The patient is unable to provide history secondary to his altered mental status and underlying dementia; however he appears more alert than yesterday and is able to awaken and make eye contact and say a few words this morning. Still has jerky movements of extremities. ( Emerson Stringer MD R1) Objective Vitals Vital Signs Date Time Temp Pulse Resp B/P Pulse Ox O2 Delivery O2 Flow Rate FiO2 08/22/16 10:00 100 08/22/16 08:00 97.9 76 16 121/56 94 08/22/16 08:00 76 08/22/16 07:37 100 Nasal Cannula 2.00 08/22/16 06:00 100 08/22/16 04:00 76 08/22/16 04:00 98.4 76 16 99/55 95 08/22/16 02:00 78 08/22/16 00:00 78 08/22/16 00:00 98.4 78 14 112/57 100 08/21/16 22:00 75 08/21/16 20:00 97.6 75 17 107/65 96 08/21/16 20:00 75 08/21/16 19:29 99 Nasal Cannula 4.00 08/21/16 17:10 71 16 126/60 99 Room Air 08/21/16 15:13 71 17 106/60 98 Room Air 08/21/16 13:14 98 21 08/21/16 12:43 86 17 112/69 100 Room Air I/O 08/21/16 08/21/16 08/21/16 08/22/16 08/22/16 08/22/16 07:00 15:00 23:00 07:00 15:00 23:00 Intake Total 69 ml 1243 ml Output Total 550 ml 1900 ml 1800 ml Balance -550 ml -1831 ml -557 ml Intake IV Total 69 ml 1243 ml Output Urine Total 550 ml 1900 ml 1800 ml # Bowel Movements 1 (Emerson Stringer MD R1) Result Diagram: 08/22/167 08/22/1627 Objective Remarks GENERAL: Lying in bed in no apparent distress NEURO: Sleepy, arousable, able to speak a few words, able to move all extremities spontaneously. Jerky movements of extremities intermittently. SKIN: Warm and dry. No rashes or erythema. HEAD: Normocephalic. Atraumatic. EYES:No scleral icterus. No injection or drainage. ENT: No nasal drainage. Moist mucous membranes. NECK: Supple, trachea midline. No JVD. CARDIOVASCULAR: Distant heart sounds. No murmur appreciated. Peripheral pulses 2 +. RESPIRATORY: Decreased aeration throughout, rhonchi scattered, no wheezing or rales. No accessory muscle use. GASTROINTESTINAL: Abdomen soft, nontender, nondistended. EXTREMITIES: No edema. (Emerson Stringer MD R1) A/P Assessment and Plan 75 year old male with PMH of dementia, HTN, HLD with: Discharge Planning Discharge back to [facility] pending improvement of acute medical issues. (Emerson Stringer MD R1) Attending Attestation Patient seen and examined with the resident team Case reviewed and discussed Agree with plan of care as discussed with me and documented in the resident note. (Sheree Greenwood MD) Problem List: (1) Sepsis Status: Acute Plan: Source is likely urinary vs aspiration CXR appears to be under aerated but is otherwise negative. Repeat CXR today shows minimal left basilar density likely to be atelectasis Continue Rocephin and Clindamycin to cover for UTI and aspiration respectively ( both started 08/21) Leukocytosis improving Blood cultures no growth after one day Urine culture showing no growth Received 4L of NS boluses in the ED IVF switched to D5W to replace free water deficit causing hypernatremia (2) Hypernatremia Status: Acute Plan: Na 157 on admission, indicating significant free water deficit IVF switched to D5W to replace free water deficit rate of 125 mL/hr over 48 hours Na initially uptrended as patient received 4L NS boluses in the ED given sepsis Will continue to trend BMPs and monitor Na to adjust management as necessary (3) Hypotension Status: Acute Plan: 94/52 on admission BP now stable s/p 4L NS in ED Continue IVF If patient becomes hypotensive, may have to initiate pressors likely Levophed and will place consult to critical care who is aware of patient (4) Hyperkalemia Status: Acute Plan: K 5.7 on admission. Has now normalized after Ca gluconate, insulin with glucose, kayexalate Bicarb added to IVF overnight for management of acidosis causing worsening hyperkalemia Continue to trend BMP (5) Metabolic acidosis with respiratory acidosis Status: Acute Plan: Initial VBG shows mixed metabolic and respiratory acidosis Subsequent VBGs improved s/p bicarb administration (6) Rhabdomyolysis Status: Acute Plan: Per nephrology elevated CK should not be significant enough to account for acute renal insufficiency IVF as above CK improving (7) Dehydration Status: Acute Plan: IVF as above Monitor intake and output Trend BMPs (8) ARF (acute renal failure) Status: Resolved Plan: Likely due to dehydration, per nephrology rhabdomyolysis should not be significant enough to account for this patients ARF UOP is adequate after IVF administration Urine is clear Renal US is unremarkable (9) Altered mental status Status: Resolved Plan: Secondary to sepsis due to UTI or aspiration, dehydration or electrolyte imbalance also contributing Management as above Head CT showing atrophy, otherwise negative (10) Dementia Status: Chronic Plan: Chronic, end-stage dementia Resume home memantine once stable (11) Nutrition, metabolism, and development symptoms Status: Acute Plan: Fluids as above Monitor electrolytes closely and adjust management as indicated Regular diet to include speech therapy recommendations of puree and honey thickened liquids DVT Prophylaxis with heparin 5000 units subq q12h sdw Martin Villegas Newby-Goodman (Emerson Stringer MD R1) Emerson Stringer MD R1 Aug 22, 2016 12:24 Sheree Greenwood MD Aug 24, 2016 13:19
[2016-08-22] MEDS: HEPARIN SODIUM - SQ 10,000 UNITS/ML VIAL SQ SCH (13:00)
[2016-08-22 13:18] LABS: BICARBONATE 25.9 MEQ/L (21.0-32.0); POTASSIUM 4.3 MEQ/L (3.5-5.1)
--- NOTE | 2016-08-22 16:00 | EC ---
Study Study Date:08/22/2016 STUDY CONCLUSIONS SUMMARY - Left ventricle: The cavity size was normal. Wall thickness was normal. Systolic function was normal. The estimated ejection fraction was in the range of 60% to 65%. Wall motion was normal; there were no regional wall motion abnormalities. - Mitral valve: Moderately calcified annulus. - Pulmonary arteries: PA peak pressure: 32mm Hg (S). If LV function is below 40, please consider prescribing an ACEI or ARB or document rationale for non-use. PROCEDURE DATA STUDY STATUS: Elective. Procedure: Transthoracic echocardiography. Image quality was good. Scanning was performed from the parasternal, apical, and subcostal acoustic windows. Study completion: The patient tolerated the procedure well. Transthoracic echocardiography. M-mode, complete 2D, complete spectral Doppler, and color Doppler. Patient status: Inpatient. CARDIAC ANATOMY LEFT VENTRICLE: The cavity size was normal. Wall thickness was normal. Systolic function was normal. The estimated ejection fraction was in the range of 60% to 65%. Wall motion was normal; there were no regional wall motion abnormalities. AORTIC VALVE: Trileaflet; mildly thickened leaflets. Doppler: Transvalvular velocity was within the normal range. There was no stenosis. No regurgitation. AORTA: Aortic root: The aortic root was normal in size. MITRAL VALVE: Moderately calcified annulus. Doppler: Transvalvular velocity was within the normal range. There was no evidence for stenosis. Trace regurgitation. LEFT ATRIUM: The atrium was normal in size. RIGHT VENTRICLE: The cavity size was normal. Wall thickness was normal. PULMONIC VALVE: Doppler: Transvalvular velocity was within the normal range. There was no evidence for stenosis. No regurgitation. TRICUSPID VALVE: Structurally normal valve. Doppler: Transvalvular velocity was within the normal range. Trace regurgitation. PULMONARY ARTERY: The main pulmonary artery was normal-sized. Systolic pressure was within the normal range. RIGHT ATRIUM: The atrium was normal in size. PERICARDIUM: There was no pericardial effusion. SYSTEMIC VEINS: Inferior vena cava: Not visualized. BASIC MEASUREMENTS ADULT Normal Left ventricle LV internal dimension, ED, chordal level, *38.4 mm 43-52 PLAX LV posterior wall thickness, ED 6.9 mm IVS/LVPW ratio, ED 1.04 <1.3 Ventricular septum Septal thickness, ED 7.2 mm Left atrium Anterior-posterior dimension 32 mm Right ventricle RV internal dimension, ED, PLAX 26.8 mm 19-38 DOPPLER MEASUREMENTS ADULT Normal Main pulmonary artery Pressure, S *32 mm Hg =30 Mitral valve Peak E-wave velocity 59.2 cm/s Peak A-wave velocity 86.4 cm/s Peak E/A ratio 0.7 Tricuspid valve Regurgitant peak velocity 235 cm/s Peak RV-RA gradient, S 22 mm Hg Maximal regurgitant velocity 235 cm/s Systemic veins Estimated CVP 10 mm Hg Right ventricle RV pressure, S *32 mm Hg <30 LEGEND: Mean values are shown as u=mean value. Asterisk (*) foster values outside specified normal range. Prepared and signed by Mayur Malik [id number]
--- NOTE | 2016-08-22 17:31 | HHI.FPPN ---
Addendum to progress note ADDENDUM Reason for addendum: Additonal documentation Additional information Patient more alert this afternoon. Able to follow commands. Lying comfortably in bed, without tremors. Will continue current management. Emerson Stringer MD R1 Aug 22, 2016 17:31
--- NOTE | 2016-08-22 19:45 | MG ---
cc: DEVIN RODRIGUEZ M.D. Lab No: Date: Age: Sex: M Race: DATE OF 1940, 75 years old EEG NUMBER [id number] Machado ROOM 503 INDICATION Awake, drowsy, asleep study with photic stimulation. Does not follow commands. Will open eyes when asked but opens them shortly afterwards. CT shows atrophy of the brain and he is here for change in mental status and hypotension with a history of dementia, Alzheimer's, hyperlipidemia. MEDICATIONS 1. Protonix. 2. Clindamycin. DESCRIPTION OF RECORD There is quite a bit of artifact movement noted throughout the recording and leg shaking. No epileptic activity but overall slowing predominately of 5 Hz, theta frequency, some snoring seen. EKG does look sinus. Ongoing shaking and movement consistent with artifact but no epileptiform features. IMPRESSION Abnormal EEG due to some mild slowing likely consistent with encephalopathy versus dementia in the patient. No epileptic activity seen otherwise. Clinical correlation. MD LOUISE Sumner/BRIDGET /4:55 PM /7:41 PM
[2016-08-22] MEDS: PANTOPRAZOLE SODIUM 40 MG VIAL IV PUSH SCH (21:42)
[2016-08-23] VITALS (14 sets, daily range): BP systolic 98–129; BP diastolic 53–69; PULSE 60–86; RESP 11–17; TEMP 97.7–100.3; O2SAT 95–98
[2016-08-23 00:48] LABS: BICARBONATE 28.3 MEQ/L (21.0-32.0); MAGNESIUM 1.6 MG/DL (1.5-2.5); POTASSIUM 3.9 MEQ/L (3.5-5.1)
[2016-08-23] MEDS: HEPARIN SODIUM - SQ 10,000 UNITS/ML VIAL SQ SCH ×3 (03:22→23:29)
[2016-08-23] MEDS: CHLORHEXIDINE GLUCONATE 2 % 1 PACK (2 CLOTHS) TOP SCH (04:00)
[2016-08-23 05:37] LABS: AUTOMATED NEUTROPHIL # 6.2 TH/MM3 (1.8-7.7); BASOPHIL # 0.1 TH/MM3 (0-0.2); BASOPHIL % 0.5 % (0.0-2.0); EOSINOPHIL # 0.3 TH/MM3 (0-0.4); EOSINOPHIL % 3.6 % (0.0-4.0); HEMATOCRIT 39.8 % (39.0-51.0); HEMO FLAGS DIFF FINAL; LYMPH % 23.2 % (9.0-44.0); LYMPHOCYTE # 2.2 TH/MM3 (1.0-4.8); MEAN CELL VOLUME 89.7 FL (80.0-100.0); MEAN CORPUSCULAR HEMOGLOBIN 28.9 PG (27.0-34.0); MEAN CORPUSCULAR HGB CONC 32.2 % (32.0-36.0); MONO % 7.3 % (0.0-8.0); NEUT % 65.4 % (16.0-70.0); PLATELET COUNT 161 TH/MM3 (150-450); RED BLOOD COUNT 4.44 MIL/MM3 (4.50-5.90); RED CELL DISTRIBUTION WIDTH 15.4 % (11.6-17.2); WHITE BLOOD COUNT 9.5 TH/MM3 (4.0-11.0)
[2016-08-23 06:00] LABS: BICARBONATE 28.5 MEQ/L (21.0-32.0)
[2016-08-23 06:05] LABS: POTASSIUM 3.8 MEQ/L (3.5-5.1)
[2016-08-23] MEDS: CLINDAMYCIN INJ 600 MG in SODIUM CHLORIDE 0.9% INJ 100 ML IV SCH ×3 (06:38→21:18)
[2016-08-23] MEDS: SODIUM CHLORIDE 0.9% FLUSH 5 ML FLUSH FLUSH SCH ×2 (08:00→20:09)
[2016-08-23] MEDS: DEXTROSE 5% IN WATE 1000ML INJ 1,000 ML IV SCH ×3 (08:00→20:09)
--- NOTE | 2016-08-23 10:42 | HHI.FPPN ---
Subjective Remarks No events overnight. Patient has been afebrile, BP remains stable. 2565mL of UOP. Awake and alert this morning. Not able to follow commands. Not talking. ( Emerson Stringer MD R1) Objective Vitals Vital Signs Date Time Temp Pulse Resp B/P Pulse Ox O2 Delivery O2 Flow Rate FiO2 08/23/16 08:00 86 08/23/16 08:00 98.2 80 14 122/58 96 08/23/16 06:00 64 08/23/16 04:00 97.7 63 14 98/53 95 08/23/16 04:00 63 08/23/16 02:00 60 08/23/16 00:00 97.9 69 13 128/58 97 08/23/16 00:00 69 08/22/16 22:00 64 08/22/16 20:00 72 08/22/16 20:00 98.0 72 14 105/58 94 08/22/16 19:06 94 21 08/22/16 18:00 100 08/22/16 16:00 98.0 69 18 98/57 99 08/22/16 16:00 76 08/22/16 14:00 100 08/22/16 12:00 76 08/22/16 12:00 98.0 69 18 98/57 99 I/O 08/22/16 08/22/16 08/22/16 08/23/16 08/23/16 08/23/16 07:00 15:00 23:00 07:00 15:00 23:00 Intake Total 1243 ml 1000 ml 2218 ml 1250 ml Output Total 1800 ml 700 ml 1295 ml 570 ml Balance -557 ml 300 ml 923 ml 680 ml Intake IV Total 1243 ml 1000 ml 2218 ml 1250 ml Output Urine Total 1800 ml 700 ml 1295 ml 570 ml # Bowel Movements 1 (Emerson Stringer MD R1) Result Diagram: 08/23/1633908/23/16339 Objective Remarks GENERAL: Lying in bed in no apparent distress NEURO: Awake, alert, not able to follow commands, not talking, able to move all extremities spontaneously. Jerky movements of extremities intermittently. SKIN: Warm and dry. HEAD: Normocephalic. Atraumatic. EYES: No scleral icterus. No injection or drainage. ENT: No nasal drainage. Moist mucous membranes. NECK: Supple, trachea midline. No JVD. CARDIOVASCULAR: Distant heart sounds. No murmur appreciated. Peripheral pulses 2 +. RESPIRATORY: Decreased aeration throughout, rhonchi scattered, no wheezing or rales. No accessory muscle use. GASTROINTESTINAL: Abdomen soft, appears to be nontender, nondistended. EXTREMITIES: No lower extremity edema. (Emerson Stringer MD R1) A/P Assessment and Plan 75 year old male with PMH of dementia, HTN, HLD with: Discharge Planning Discharge back to [facility] pending improvement of acute medical issues. (Emerson Stringer MD R1) Attending Attestation Patient seen and examined. Case reviewed and discussed Agree with plan of care as discussed with me and documented in the resident note. (Sheree Greenwood MD) Problem List: (1) Sepsis Status: Acute Plan: Source is likely urinary vs aspiration CXR appears to be under aerated but is otherwise negative. Repeat CXR shows minimal left basilar density likely to be atelectasis Continue Rocephin and Clindamycin to cover for UTI and aspiration respectively ( both started 08/21) Leukocytosis resolved Blood cultures no growth after one day Urine culture showing no growth Continue D5W at 125 mL/hr to replace free water deficit causing hypernatremia (2) Hypernatremia Status: Acute Plan: Na 157 on admission, indicating significant free water deficit IVF switched to D5W to replace free water deficit rate of 125 mL/hr Na initially uptrended as patient received 4L NS boluses in the ED given sepsis Will continue to trend BMPs and monitor Na to adjust management as necessary Na slowly downtrending (3) Hypotension Status: Acute Plan: 94/52 on admission BP now stable s/p 4L NS in ED Continue IVF If patient becomes hypotensive, may have to initiate pressors likely Levophed and will place consult to critical care who is aware of patient (4) Hyperkalemia Status: Acute Plan: K 5.7 on admission, has now normalized Continue to trend BMP to monitor K in addition to Na (5) Metabolic acidosis with respiratory acidosis Status: Acute Plan: Initial VBG shows mixed metabolic and respiratory acidosis Subsequent VBGs improved s/p bicarb administration Will trend additional VBG to see if corrected (6) Dehydration Status: Acute Plan: IVF as above Monitor intake and output Trend BMPs (7) ARF (acute renal failure) Status: Acute Plan: Likely due to dehydration, per nephrology rhabdomyolysis should not be significant enough to account for this patients ARF UOP continues to be adequate after IVF administration Urine remains clear if Weems bag Renal US is unremarkable (8) Altered mental status Status: Acute Plan: Secondary to sepsis due to UTI or aspiration, dehydration or electrolyte imbalance also contributing Management as above Head CT showing atrophy, otherwise negative (9) Dementia Status: Chronic Plan: Chronic, end-stage dementia Resume home memantine once stable (10) Nutrition, metabolism, and development symptoms Status: Acute Plan: Fluids as above Monitor electrolytes closely and adjust management as indicated Regular diet to include speech therapy recommendations of puree and honey thickened liquids DVT Prophylaxis with heparin 5000 units subq q12h sdw Loulou wdw Dr. Greenwood (Emerson Stringer MD R1) Emerson Stringer MD R1 Aug 23, 2016 10:42 Sheree Greenwood MD Aug 23, 2016 17:06
[2016-08-23] MEDS: cefTRIAXone INJ 1,000 MG in SODIUM CHLORIDE 0.9% INJ 100 ML IV SCH (11:19)
[2016-08-23 11:24] LABS: BICARBONATE 27.4 MEQ/L (21.0-32.0); POTASSIUM 3.7 MEQ/L (3.5-5.1)
[2016-08-23 11:35] LABS: BLOOD GAS VENOUS BASE EXCESS -0.8 mmol/L (-2-2); BLOOD GAS VENOUS HCO3 23 mmol/L (22-26); BLOOD GAS VENOUS O2 HGB SAT 80 % (70-76); BLOOD GAS VENOUS PCO2 36 mmHg (44-48); BLOOD GAS VENOUS PO2 44 mmHg (35-40); BLOOD GAS VENOUS pH 7.43 (7.360-7.400); CRITICAL VALUE NO; FIO2 21 %; OXYGEN DEVICE ROOM AIR; TEMP CORR TO 98.6
[2016-08-23 11:36] LABS: DRAW SITE I.V.; STAT NO
[2016-08-23 15:38] LABS: BICARBONATE 26.6 MEQ/L (21.0-32.0); POTASSIUM 3.6 MEQ/L (3.5-5.1)
[2016-08-23 17:43] LABS: BICARBONATE 27.5 MEQ/L (21.0-32.0); POTASSIUM 3.7 MEQ/L (3.5-5.1)
[2016-08-23] MEDS: PANTOPRAZOLE SODIUM 40 MG VIAL IV PUSH SCH (20:10)
[2016-08-23] MEDS: DOCUSATE SODIUM 50 MG/SENNA 8.6 MG TAB PO SCH (20:11)
[2016-08-23 21:40] LABS: BICARBONATE 24.6 MEQ/L (21.0-32.0); POTASSIUM 3.6 MEQ/L (3.5-5.1)
[2016-08-23 21:53] LABS: CALCIUM-PROTEIN CORRECTED 7.8 MG/DL (8.5-10.1)
[2016-08-23] MEDS: SODIUM CHLOR 0.45% 1000 ML INJ 1,000 ML IV SCH (23:27)
[2016-08-24] VITALS (10 sets, daily range): BP systolic 105–116; BP diastolic 54–63; PULSE 59–72; RESP 12–26; TEMP 97.8–98.4; O2SAT 92–100
[2016-08-24 02:11] LABS: BICARBONATE 26.4 MEQ/L (21.0-32.0); POTASSIUM 3.5 MEQ/L (3.5-5.1)
[2016-08-24] MEDS: CHLORHEXIDINE GLUCONATE 2 % 1 PACK (2 CLOTHS) TOP SCH (04:00)
[2016-08-24] MEDS: CLINDAMYCIN INJ 600 MG in SODIUM CHLORIDE 0.9% INJ 100 ML IV SCH ×3 (04:20→21:38)
[2016-08-24 05:05] LABS: AUTOMATED NEUTROPHIL # 8.4 TH/MM3 (1.8-7.7); BASOPHIL % 0.3 % (0.0-2.0); EOSINOPHIL # 0.3 TH/MM3 (0-0.4); EOSINOPHIL % 2.9 % (0.0-4.0); HEMATOCRIT 36.7 % (39.0-51.0); HEMO FLAGS DIFF FINAL; LYMPH % 20.9 % (9.0-44.0); LYMPHOCYTE # 2.5 TH/MM3 (1.0-4.8); MEAN CELL VOLUME 88.8 FL (80.0-100.0); MEAN CORPUSCULAR HEMOGLOBIN 28.5 PG (27.0-34.0); MEAN CORPUSCULAR HGB CONC 32.1 % (32.0-36.0); MONO % 6.3 % (0.0-8.0); NEUT % 69.6 % (16.0-70.0); PLATELET COUNT 147 TH/MM3 (150-450); RED BLOOD COUNT 4.13 MIL/MM3 (4.50-5.90); RED CELL DISTRIBUTION WIDTH 14.8 % (11.6-17.2); WHITE BLOOD COUNT 12.1 TH/MM3 (4.0-11.0)
[2016-08-24 05:35] LABS: BICARBONATE 25.1 MEQ/L (21.0-32.0); POTASSIUM 3.4 MEQ/L (3.5-5.1)
[2016-08-24] MEDS ORDERED: POTASSIUM CHLOR 20 MEQ PREMIX 100 ML IV ONE (07:00)
[2016-08-24] MEDS: SODIUM CHLOR 0.45% 1000 ML INJ 1,000 ML IV SCH ×2 (07:56→17:55)
[2016-08-24] MEDS: SODIUM CHLORIDE 0.9% FLUSH 5 ML FLUSH FLUSH SCH ×2 (08:01→21:00)
[2016-08-24] MEDS: DOCUSATE SODIUM 50 MG/SENNA 8.6 MG TAB PO SCH ×2 (08:01→21:37)
[2016-08-24 10:02] LABS: BICARBONATE 26.7 MEQ/L (21.0-32.0); POTASSIUM 3.3 MEQ/L (3.5-5.1)
[2016-08-24 10:17] LABS: CALCIUM-PROTEIN CORRECTED 7.7 MG/DL (8.5-10.1)
--- NOTE | 2016-08-24 10:23 | HHI.FPPN ---
Subjective Remarks No acute events overnight. Vital signs unremarkable. There was a one-time elevated temperature of 100.3 but none other. This morning patient makes good eye contact and did answer a few yes/no questions appropriately. Denies any pain. Of note patient's urine was more concentrated than expected. (Kate Gavin MD R2) Objective Vitals Vital Signs Date Time Temp Pulse Resp B/P Pulse Ox O2 Delivery O2 Flow Rate FiO2 08/24/16 08:00 60 08/24/16 08:00 98.2 64 26 110/54 92 08/24/16 06:00 62 08/24/16 04:00 98.1 64 13 105/61 99 08/24/16 04:00 64 08/24/16 02:00 64 08/24/16 00:00 64 08/24/16 00:00 98.4 64 12 112/58 100 08/23/16 22:00 64 08/23/16 20:00 70 08/23/16 20:00 98.6 70 17 129/69 97 08/23/16 19:30 98 21 08/23/16 18:00 73 08/23/16 16:00 73 08/23/16 16:00 100.3 67 11 109/58 96 08/23/16 14:00 73 08/23/16 12:00 75 08/23/16 12:00 98.7 77 15 109/59 96 08/23/16 10:00 74 I/O 08/23/16 08/23/16 08/23/16 08/24/16 08/24/16 08/24/16 07:00 15:00 23:00 07:00 15:00 23:00 Intake Total 1250 ml 1149 ml 1329 ml 678 ml Output Total 570 ml 600 ml 580 ml 275 ml Balance 680 ml 549 ml 749 ml 403 ml Intake Oral 240 ml IV Total 1250 ml 909 ml 1329 ml 678 ml Output Urine Total 570 ml 600 ml 580 ml 275 ml # Bowel Movements 1 1 (Kate Jamil MD R2) Result Diagram: 08/24/1630608/24/16 030 Objective Remarks GEN: Well-developed, well-nourished patient. No acute distress. Makes good eye contact. Intermittently verbal. Appears to be at baseline according to 's original description. CV: Regular rate and rhythm without obvious murmurs LUNGS: Clear to auscultation bilaterally in the anterior lung power. Normal respiratory effort. No wheezes, rales, rhonchi. EXT: No edema. No calf tenderness. NEURO/PSYCH: Awake, alert. (Kate Jamil MD R2) A/P Assessment and Plan 75 year old male with PMH of dementia, HTN, HLD who was admitted for altered mental status. Discharge Planning Discharged back to [facility] pending improvement of hypernatremia. Anticipatory discharge in 1-[address] Stringer wdw Dr. Greenwood (Kate Jamil MD R2) Attending Attestation Patient seen and examined Case reviewed and discussed Agree with plan of care as discussed with me and documented in the resident note. (Sheree Greenwood MD) Problem List: (1) Altered mental status Status: Resolved Plan: Suspected sepsis on admission due to altered mental status, hypotension, and leukocytosis. Source of infection was suspected urinary versus aspiration pneumonia but urine blood cultures have been negative. Mental status has much improved and is essentially back at patient's baseline. Likely due to uremia since he was found to have ANDREW with BUN/creatinine of 140/6.11 on admission -Mixed metabolic and respiratory acidosis on admission has resolved -Leukocytosis improved -Okay to transfer out of ICU Imaging: * Head CT: Atrophy otherwise negative * Repeat CXR shows minimal left basilar density likely to be atelectasis * CXR appears to be under aerated but is otherwise negative. * Abdominal x-ray: Unremarkable Medications: * Rocephin and Clindamycin to cover for UTI and aspiration respectively (both started 08/21) (2) Electrolyte abnormality Status: Acute Plan: Presented with severe electrolyte disturbances with hypernatremia and hyperkalemia which has been contributed due to severe dehydration with significant free water deficit. Admission sodium was 157 which continued to trend upward with a high of 164 despite fluid resuscitation utilizing NS and 1/ 2 NS. Was eventually switched to D5W before sodium improvement was seen. Bicarbonate was initially added to help with respiratory/metabolic acidosis but was discontinued due to suspected contribution to continues rise in sodium. -Potassium initially was elevated and was treated with insulin/D50, Kayexalate, calcium gluconate and hyperkalemia but has now resolved * Patient now hypokalemic with a potassium of 3.4 which was repleted with 20 KCl IV 1 -Sodium now downtrending from a high of 164-->152 * Do not want to have more than a 10 point change within 24 hours * If excessive drop in sodium occurs, will either change fluids to NS and/or decreased fluids altogether -Continue to trend BMPs now q8hrs -Discontinue telemetry as there have been no events -CXR ordered this AM to evaluate for fluid overload as patient has an increase in RR after initial evaluation this AM Fluids: * 1/2 NS at 125 (3) ARF (acute renal failure) Status: Resolved Plan: Likely due to dehydration. Creatinine was initially 6.11 on admission, now normal in the 1.10s -Monitor I's and O's -Urine from Weems bag was more constipated than expected, continue to monitor urine output -Renal US is unremarkable Nephrology consulted: Appreciate recommendations * Continue to adjust fluids * Signed off at this time (4) Dementia Status: Chronic Plan: Chronic, end-stage dementia Resume home memantine once stable (5) Nutrition, metabolism, and development symptoms Status: Acute Plan: Fluids and Electrolytes as as above Diet: per ST recommendations DVT Prophylaxis with heparin 5000 units subq q12h (Kate Jamil MD R2) Kate Jamil MD R2 Aug 24, 2016 10:22 Sheree Greenwood MD Aug 24, 2016 13:26
--- NOTE | 2016-08-24 11:06 | RADRPT ---
EXAM DATE/TIME: 08/24/2016 10:10 [facility] COMPARISON: CHEST SINGLE AP, August 22, 2016, 6:32. INDICATIONS: Short of breath. MEDICAL HISTORY: Hypertension. Dementia SURGICAL HISTORY: None. ENCOUNTER: Initial ACUITY: 3 days PAIN SCORE: Non-responsive. LOCATION: Bilateral chest FINDINGS: Scattered increased interstitial markings are noted bilaterally consistent with mild pulmonary vascul ar congestion or possible infiltrates. Clinical correlation is recommended. The heart is enlarged. There is a poor inspiratory result. Degenerative changes and scoliosis of the thoracic spine are no gian. CONCLUSION: 1. Scattered increased interstitial markings bilaterally consistent with mild pulmonary vascular con gestion or interstitial infiltrates. Clinical correlation is recommended. 2. Cardiomegaly. 3. Poor inspiratory result. 4. Degenerative changes and scoliosis of the thoracic spine. Titus Polk MD on August 24, 2016 at 10:50 Board Certified Radiologist. This report was verified electronically.
[2016-08-24 11:21] LABS: BICARBONATE 27.3 MEQ/L (21.0-32.0); POTASSIUM 3.4 MEQ/L (3.5-5.1)
[2016-08-24] MEDS: cefTRIAXone INJ 1,000 MG in SODIUM CHLORIDE 0.9% INJ 100 ML IV SCH (11:58)
[2016-08-24] MEDS: HEPARIN SODIUM - SQ 10,000 UNITS/ML VIAL SQ SCH (12:00)
[2016-08-24 15:59] LABS: BICARBONATE 27.7 MEQ/L (21.0-32.0); POTASSIUM 3.5 MEQ/L (3.5-5.1)
[2016-08-24 16:13] LABS: CALCIUM-PROTEIN CORRECTED 7.7 MG/DL (8.5-10.1)
[2016-08-24 20:54] LABS: BICARBONATE 26.7 MEQ/L (21.0-32.0); POTASSIUM 3.4 MEQ/L (3.5-5.1)
[2016-08-24 21:14] LABS: CALCIUM-PROTEIN CORRECTED 7.7 MG/DL (8.5-10.1)
[2016-08-24] MEDS: PANTOPRAZOLE SODIUM 40 MG VIAL IV PUSH SCH (21:37)
[2016-08-25] VITALS (9 sets, daily range): BP systolic 98–141; BP diastolic 53–65; PULSE 49–86; RESP 12–18; TEMP 97.4–98.9; O2SAT 94–100
[2016-08-25] MEDS: HEPARIN SODIUM - SQ 10,000 UNITS/ML VIAL SQ SCH ×2 (01:17→13:06)
[2016-08-25 03:08] LABS: AUTOMATED NEUTROPHIL # 7.8 TH/MM3 (1.8-7.7); BASOPHIL % 0.4 % (0.0-2.0); EOSINOPHIL # 0.3 TH/MM3 (0-0.4); EOSINOPHIL % 2.8 % (0.0-4.0); HEMATOCRIT 37.9 % (39.0-51.0); HEMO FLAGS DIFF FINAL; LYMPH % 19.7 % (9.0-44.0); LYMPHOCYTE # 2.1 TH/MM3 (1.0-4.8); MEAN CELL VOLUME 86.9 FL (80.0-100.0); MEAN CORPUSCULAR HEMOGLOBIN 28.5 PG (27.0-34.0); MEAN CORPUSCULAR HGB CONC 32.7 % (32.0-36.0); MONO % 4.9 % (0.0-8.0); NEUT % 72.2 % (16.0-70.0); PLATELET COUNT 143 TH/MM3 (150-450); RED BLOOD COUNT 4.36 MIL/MM3 (4.50-5.90); RED CELL DISTRIBUTION WIDTH 14.6 % (11.6-17.2); WHITE BLOOD COUNT 10.8 TH/MM3 (4.0-11.0)
[2016-08-25 03:37] LABS: BICARBONATE 28.8 MEQ/L (21.0-32.0); POTASSIUM 3.5 MEQ/L (3.5-5.1)
[2016-08-25 03:55] LABS: CALCIUM-PROTEIN CORRECTED 7.9 MG/DL (8.5-10.1)
[2016-08-25] MEDS: CHLORHEXIDINE GLUCONATE 2 % 1 PACK (2 CLOTHS) TOP SCH (04:00)
[2016-08-25] MEDS: SODIUM CHLOR 0.45% 1000 ML INJ 1,000 ML IV SCH ×3 (04:26→21:17)
[2016-08-25] MEDS: CLINDAMYCIN INJ 600 MG in SODIUM CHLORIDE 0.9% INJ 100 ML IV SCH ×3 (05:56→21:15)
[2016-08-25] MEDS ORDERED: POTASSIUM CHLOR 20 MEQ PREMIX 100 ML IV ONE ×2 (07:00→18:15)
[2016-08-25] MEDS: SODIUM CHLORIDE 0.9% FLUSH 5 ML FLUSH FLUSH SCH ×2 (07:37→21:16)
--- NOTE | 2016-08-25 10:27 | HHI.FPPN ---
Subjective Remarks No events overnight. BPs ranging 105-121/50s-60s over past 24 hours. 1165 mL of UOP. Patient is awake and alert this morning. Appears comfortable in no apparent distress. Still needing soft mittens in place. Not able to follow commands. Makes eye contact. Not talking. Objective Vitals Vital Signs Date Time Temp Pulse Resp B/P Pulse Ox O2 Delivery O2 Flow Rate FiO2 08/25/16 09:00 97 08/25/16 08:00 97.4 49 12 105/53 99 08/25/16 08:00 49 08/25/16 04:00 98.7 51 12 111/56 99 08/25/16 04:00 51 08/25/16 00:00 53 08/25/16 00:00 98.7 53 15 121/59 99 08/24/16 21:57 12 08/24/16 20:00 98.2 59 19 116/63 98 08/24/16 16:00 59 08/24/16 16:00 97.8 59 15 107/55 93 08/24/16 12:00 69 08/24/16 12:00 98.3 66 13 111/58 96 I/O 08/24/16 08/24/16 08/24/16 08/25/16 08/25/16 08/25/16 07:00 15:00 23:00 07:00 15:00 23:00 Intake Total 678 ml 1411 ml 1128 ml 647 ml Output Total 275 ml 450 ml 415 ml 300 ml Balance 403 ml 961 ml 713 ml 347 ml Intake Oral 360 ml IV Total 678 ml 1051 ml 1128 ml 647 ml Output Urine Total 275 ml 450 ml 415 ml 300 ml Stool Total 0 ml # Bowel Movements 1 0 1 Result Diagram: 08/25/166 08/25/166 Objective Remarks GEN: Well-developed, well-nourished patient. No acute distress. CV: Regular rate and rhythm without obvious murmurs LUNGS: Clear to auscultation bilaterally in the anterior lung power. Normal respiratory effort. No wheezes, rales, rhonchi. EXT: No edema. No calf tenderness. NEURO/PSYCH: Awake, alert. Not speaking. Not able to follow commands. Able to spontaneously move all extremities. A/P Assessment and Plan 75 year old male with PMH of dementia, HTN, HLD who was admitted for altered mental status, ARF, electrolyte imbalances, and suspected aspiration pneumonia. Discharge Planning Discharge back to [facility] pending improvement of hypernatremia. Anticipate discharge in 1-2 days. Problem List: (1) Altered mental status Status: Resolved Plan: Suspected sepsis on admission due to altered mental status, hypotension, and leukocytosis. Source of infection was suspected urinary versus aspiration pneumonia however urine and blood cultures have been negative. Mental status is much improved and seems to be at patient's baseline. Likely due to uremia since he was found to have ANDREW with BUN/creatinine of 140/6.11 on admission -Mixed metabolic and respiratory acidosis on admission has resolved -Leukocytosis resolved today -Okay to transfer out of ICU Imaging: * Head CT: Atrophy otherwise negative * Repeat CXR shows minimal left basilar density likely to be atelectasis * CXR appears to be under aerated but is otherwise negative. * Abdominal x-ray: Unremarkable Medications: * Rocephin and Clindamycin to cover for UTI and aspiration respectively (both started 08/21) * Consider discontinuing today or 08/26 given stable clinical status and negative urine culture (2) Electrolyte abnormality Status: Acute Plan: Presented with severe electrolyte disturbances with hypernatremia and hyperkalemia which has been contributed due to severe dehydration with significant free water deficit. Admission sodium was 157 which continued to trend upward with a high of 164 despite fluid resuscitation utilizing NS and 1/ 2 NS. Was eventually switched to D5W before sodium improvement was seen. Bicarbonate was initially added to help with respiratory/metabolic acidosis but was discontinued due to suspected contribution to continued rise in sodium. -Potassium initially was elevated and was treated with insulin/D50, Kayexalate, calcium gluconate and hyperkalemia but has now resolved -Sodium now downtrending from a high of 164-->148 * Do not want to have more than a 10 point change within 24 hours * If excessive drop in sodium occurs, will change 1/2 NS to either NS or discontinue fluids altogether -Continue to monitor BMP -Discontinue telemetry as there have been no events (3) ARF (acute renal failure) Status: Resolved Plan: Likely due to dehydration. Creatinine was initially 6.11 on admission, now normalized -Monitor I's and O's -Urine from Weems bag was more concentrated than expected, continue to monitor urine output -Renal US is unremarkable Nephrology consulted: Appreciate recommendations * Continue to adjust fluids * Signed off at this time (4) Dementia Status: Chronic Plan: Chronic, end-stage dementia Resume home memantine once stable (5) Nutrition, metabolism, and development symptoms Status: Acute Plan: Fluids and Electrolytes as above Diet: per ST recommendations DVT Prophylaxis with heparin 5000 units subq q12h [address] Dr. Loulou warew Emerson Draper MD R1 Aug 25, 2016 10:27
[2016-08-25 10:38] LABS: BICARBONATE 26.2 MEQ/L (21.0-32.0); MAGNESIUM 1.4 MG/DL (1.5-2.5); POTASSIUM 3.3 MEQ/L (3.5-5.1)
[2016-08-25 10:52] LABS: CALCIUM-PROTEIN CORRECTED 7.6 MG/DL (8.5-10.1)
[2016-08-25] MEDS: cefTRIAXone INJ 1,000 MG in SODIUM CHLORIDE 0.9% INJ 100 ML IV SCH (13:06)
[2016-08-25 19:51] LABS: POTASSIUM 3.5 MEQ/L (3.5-5.1)
[2016-08-25 20:10] LABS: CALCIUM-PROTEIN CORRECTED 7.3 MG/DL (8.5-10.1)
[2016-08-25] MEDS: PANTOPRAZOLE SODIUM 40 MG VIAL IV PUSH SCH (21:15)
[2016-08-25] MEDS: DOCUSATE SODIUM 50 MG/SENNA 8.6 MG TAB PO SCH (21:16)
[2016-08-25] MEDS ORDERED: CALCIUM CARBONATE 1.25 GM (CA 500 MG) TAB PO ONE (22:00)
[2016-08-25] MEDS ORDERED: MAGNESIUM SULFATE 1 GM PREMIX 100 ML IV ONE (22:15)
[2016-08-26] VITALS (7 sets, daily range): BP systolic 105–131; BP diastolic 50–64; PULSE 51–68; RESP 18–22; TEMP 98.2–98.9; O2SAT 94–100
[2016-08-26] MEDS: HEPARIN SODIUM - SQ 10,000 UNITS/ML VIAL SQ SCH ×2 (01:42→13:00)
[2016-08-26] MEDS: CHLORHEXIDINE GLUCONATE 2 % 1 PACK (2 CLOTHS) TOP SCH (03:48)
[2016-08-26] MEDS: CLINDAMYCIN INJ 600 MG in SODIUM CHLORIDE 0.9% INJ 100 ML IV SCH ×3 (06:10→20:56)
[2016-08-26] MEDS: SODIUM CHLOR 0.45% 1000 ML INJ 1,000 ML IV SCH (06:11)
[2016-08-26 07:17] LABS: AUTOMATED NEUTROPHIL # 7.3 TH/MM3 (1.8-7.7); BASOPHIL % 0.5 % (0.0-2.0); EOSINOPHIL # 0.3 TH/MM3 (0-0.4); EOSINOPHIL % 2.5 % (0.0-4.0); HEMATOCRIT 33.4 % (39.0-51.0); HEMO FLAGS DIFF FINAL; LYMPH % 18.4 % (9.0-44.0); LYMPHOCYTE # 1.8 TH/MM3 (1.0-4.8); MEAN CELL VOLUME 87.1 FL (80.0-100.0); MEAN CORPUSCULAR HEMOGLOBIN 28.6 PG (27.0-34.0); MEAN CORPUSCULAR HGB CONC 32.9 % (32.0-36.0); MONO % 4.7 % (0.0-8.0); NEUT % 73.9 % (16.0-70.0); PLATELET COUNT 135 TH/MM3 (150-450); RED BLOOD COUNT 3.84 MIL/MM3 (4.50-5.90); RED CELL DISTRIBUTION WIDTH 14.5 % (11.6-17.2); WHITE BLOOD COUNT 9.9 TH/MM3 (4.0-11.0)
[2016-08-26 07:40] LABS: BICARBONATE 24.4 MEQ/L (21.0-32.0); MAGNESIUM 1.7 MG/DL (1.5-2.5); POTASSIUM 3.4 MEQ/L (3.5-5.1)
[2016-08-26] MEDS: SODIUM CHLORIDE 0.9% FLUSH 5 ML FLUSH FLUSH SCH ×2 (09:00→20:57)
[2016-08-26] MEDS: DOCUSATE SODIUM 50 MG/SENNA 8.6 MG TAB PO SCH ×2 (09:00→20:57)
[2016-08-26] MEDS: cefTRIAXone INJ 1,000 MG in SODIUM CHLORIDE 0.9% INJ 100 ML IV SCH (14:50)
[2016-08-26] MEDS ORDERED: MAGNESIUM SULFATE 1 GM PREMIX 100 ML IV ONE (16:00)
[2016-08-26] MEDS ORDERED: POTASSIUM CHLORIDE 20 MEQ CONTROLLED RELEASE TAB PO ONE (16:00)
--- NOTE | 2016-08-26 16:27 | HHI.FPPN ---
Subjective Remarks No acute events overnight. Vital signs unremarkable. Patient is arousable and makes good eye contact. No acute events or changes in status by the nurse. Objective Vitals Vital Signs Date Time Temp Pulse Resp B/P Pulse Ox O2 Delivery O2 Flow Rate FiO2 08/26/16 12:00 98.2 64 18 105/57 95 08/26/16 08:00 98.3 63 22 105/55 100 08/26/16 07:44 100 08/26/16 04:00 98.9 66 20 131/59 98 08/26/16 00:10 98.7 68 18 120/64 94 08/25/16 18:45 98.9 86 18 141/65 94 I/O 08/25/16 08/25/16 08/25/16 08/26/16 08/26/16 08/26/16 07:00 15:00 23:00 07:00 15:00 23:00 Intake Total 647 ml 906 ml 778 ml 784 ml Output Total 300 ml 350 ml 650 ml 675 ml Balance 347 ml 556 ml 128 ml 109 ml Intake Oral 240 ml IV Total 647 ml 666 ml 778 ml 784 ml Output Urine Total 300 ml 350 ml 650 ml 675 ml # Bowel Movements 1 1 Result Diagram: 08/26/1640 08/26/16 0640 Objective Remarks GEN: Well-developed, well-nourished patient. No acute distress. Makes good eye contact. CV: Regular rate and rhythm without obvious murmurs LUNGS: Clear to auscultation bilaterally in the anterior lung power. Normal respiratory effort. No wheezes, rales, rhonchi. EXT: No edema. No calf tenderness. NEURO/PSYCH: Awake, alert. Not speaking. Not able to follow commands. A/P Assessment and Plan 75 year old male with PMH of dementia, HTN, HLD who was admitted for altered mental status, ARF, electrolyte imbalances, and suspected aspiration pneumonia. Discharge Planning Discharge back to [facility] pending stabilization of sodium with the discontinuation of fluids. Anticipate discharge tomorrow if electrolytes remain stable. Patient's care discussed with who states patient is back at his baseline. Is agreeable to having him discharged either today or tomorrow Problem List: (1) Altered mental status Status: Resolved Plan: Suspected sepsis on admission due to altered mental status, hypotension, and leukocytosis. Source of infection was suspected urinary versus aspiration pneumonia however urine and blood cultures have been negative. Mental status is much improved and seems to be at patient's baseline. Likely due to uremia since he was found to have ANDREW with BUN/creatinine of 140/6.11 on admission -Mixed metabolic and respiratory acidosis on admission has resolved -Leukocytosis resolved Imaging: * Head CT: Atrophy otherwise negative * Repeat CXR shows minimal left basilar density likely to be atelectasis * CXR appears to be under aerated but is otherwise negative. * Abdominal x-ray: Unremarkable Medications: * Rocephin and Clindamycin to cover for UTI and aspiration respectively (both started 08/21) * Will complete antibiotics for a total of 7 days (2) Electrolyte abnormality Status: Acute Plan: Presented with severe electrolyte disturbances with hypernatremia and hyperkalemia which has been contributed due to severe dehydration with significant free water deficit. Admission sodium was 157 which continued to trend upward with a high of 164 despite fluid resuscitation utilizing NS and 1/ 2 NS. Was eventually switched to D5W before sodium improvement was seen. Bicarbonate was initially added to help with respiratory/metabolic acidosis but was discontinued due to suspected contribution to continued rise in sodium. -Potassium initially was elevated and was treated with insulin/D50, Kayexalate, calcium gluconate and hyperkalemia but has now resolved -Hypernatremia resolved * Do not want to have more than a 10 point change within 24 hours * Fluids discontinued today, repeat BMP this afternoon to assess change in sodium status -Magnesium, KCL and calcium replaced. (3) ARF (acute renal failure) Status: Resolved Plan: Likely due to dehydration. Creatinine was initially 6.11 on admission, now normalized -Monitor I's and O's -Weems catheter removed today -Renal US is unremarkable Nephrology consulted: Appreciate recommendations. Signed off (4) Dementia Status: Chronic Plan: Chronic, end-stage dementia Resumed home memantine and donepezil 08/26 -Held fluoxetine and buspirone for now (5) Nutrition, metabolism, and development symptoms Status: Acute Plan: Fluids and Electrolytes as above Diet: per ST recommendations DVT Prophylaxis with heparin 5000 units subq q12h Chronic Conditions: * HLD: restarted Statin 08/26 Kate Jamil MD R2 Aug 26, 2016 16:27 Kate Jamil MD R2 Aug 26, 2016 16:27
[2016-08-26 16:48] LABS: BICARBONATE 25.6 MEQ/L (21.0-32.0); POTASSIUM 3.5 MEQ/L (3.5-5.1)
[2016-08-26] MEDS ORDERED: CALCIUM GLUCONATE INJ 1 GM in SODIUM CHLORIDE 0.9% INJ 100 ML IV ONE (17:00)
[2016-08-26 17:02] LABS: CALCIUM-PROTEIN CORRECTED 7.9 MG/DL (8.5-10.1)
[2016-08-26] MEDS: PANTOPRAZOLE SODIUM 40 MG VIAL IV PUSH SCH (20:56)
[2016-08-26] MEDS: PRAVASTATIN SOD 80 MG TAB PO SCH (20:56)
[2016-08-26] MEDS: MEMANTINE HCL 10 MG TAB PO SCH (20:56)
[2016-08-26] MEDS: DONEPEZIL HCL 5 MG TAB PO SCH (20:57)
[2016-08-27] VITALS (7 sets, daily range): BP systolic 107–125; BP diastolic 55–59; PULSE 53–56; RESP 16–20; TEMP 97–98.7; O2SAT 96–100
[2016-08-27] MEDS: HEPARIN SODIUM - SQ 10,000 UNITS/ML VIAL SQ SCH ×2 (00:27→12:26)
[2016-08-27] MEDS: CHLORHEXIDINE GLUCONATE 2 % 1 PACK (2 CLOTHS) TOP SCH (04:00)
[2016-08-27] MEDS: CLINDAMYCIN INJ 600 MG in SODIUM CHLORIDE 0.9% INJ 100 ML IV SCH ×3 (06:20→21:40)
[2016-08-27] MEDS: SODIUM CHLORIDE 0.9% FLUSH 5 ML FLUSH FLUSH SCH ×2 (09:00→21:40)
--- NOTE | 2016-08-27 09:45 | HHI.FPPN ---
Subjective Remarks No acute events overnight. Vital signs unremarkable. This morning patient is making good eye contact and smiling. Says she has indiscriminately to questions. Objective Vitals Vital Signs Date Time Temp Pulse Resp B/P Pulse Ox O2 Delivery O2 Flow Rate FiO2 08/27/16 04:00 97.3 55 20 125/58 100 08/27/16 01:11 98.7 54 20 119/57 99 08/26/16 21:46 98.3 56 18 120/50 100 08/26/16 16:00 98.4 51 18 114/57 98 08/26/16 12:00 98.2 64 18 105/57 95 I/O 08/26/16 08/26/16 08/26/16 08/27/16 08/27/16 08/27/16 07:00 15:00 23:00 07:00 15:00 23:00 Intake Total 784 ml 480 ml 100 ml 100 ml Output Total 675 ml 150 ml Balance 109 ml 480 ml -50 ml 100 ml Intake Oral 480 ml IV Total 784 ml 100 ml 100 ml Output Urine Total 675 ml 150 ml # Voids 2 # Bowel Movements 0 Result Diagram: 08/26/16 0640 08/26/16 1533 Objective Remarks GEN: Well-developed, well-nourished patient. No acute distress. Makes good eye contact and smiling. Does say yes to questions indiscriminately. CV: Regular rate and rhythm without obvious murmurs LUNGS: Clear to auscultation bilaterally in the anterior lung power. Normal respiratory effort. No wheezes, rales, rhonchi. EXT: No edema. No calf tenderness. NEURO/PSYCH: Awake, alert. Not speaking. Not able to follow commands. A/P Assessment and Plan 75 year old male with PMH of dementia, HTN, HLD who was admitted for altered mental status, ARF, electrolyte imbalances, and suspected aspiration pneumonia. Discharge Planning Discharge back to [facility] pending stabilization of sodium with the discontinuation of fluids. Anticipate discharge today if electrolytes remain stable. * Will call patient's to update her about potential discharge today. wdw Dr. Guajardo Problem List: (1) Altered mental status Status: Resolved Plan: Suspected sepsis on admission due to altered mental status, hypotension, and leukocytosis. Source of infection was suspected urinary versus aspiration pneumonia however urine and blood cultures have been negative. Mental status is much improved and seems to be at patient's baseline. Likely due to uremia since he was found to have ANDREW with BUN/creatinine of 140/6.11 on admission -Mixed metabolic and respiratory acidosis on admission has resolved -Leukocytosis resolved Imaging: * Head CT: Atrophy otherwise negative * Repeat CXR shows minimal left basilar density likely to be atelectasis * CXR appears to be under aerated but is otherwise negative. * Abdominal x-ray: Unremarkable Medications: * Rocephin and Clindamycin to cover for UTI and aspiration respectively (both started 08/21) * Will complete antibiotics for a total of 7 days (2) Electrolyte abnormality Status: Acute Plan: Presented with severe electrolyte disturbances with hypernatremia and hyperkalemia which has been contributed due to severe dehydration with significant free water deficit. Admission sodium was 157 which continued to trend upward with a high of 164 despite fluid resuscitation utilizing NS and 1/ 2 NS. Was eventually switched to D5W before sodium improvement was seen. Bicarbonate was initially added to help with respiratory/metabolic acidosis but was discontinued due to suspected contribution to continued rise in sodium. -Potassium initially was elevated and was treated with insulin/D50, Kayexalate, calcium gluconate and hyperkalemia but has now resolved -Hypernatremia resolved, repeat this AM; fluids discontinued 08/26 (3) ARF (acute renal failure) Status: Resolved Plan: Likely due to dehydration. Creatinine was initially 6.11 on admission, now normalized -Monitor I's and O's -Renal US is unremarkable Nephrology consulted: Appreciate recommendations. Signed off (4) Dementia Status: Chronic Plan: Chronic, end-stage dementia Resumed home memantine and donepezil 08/26 -Held fluoxetine and buspirone for now (5) Nutrition, metabolism, and development symptoms Status: Acute Plan: Fluids and Electrolytes as above Diet: per ST recommendations, added ensure to diet DVT Prophylaxis with heparin 5000 units subq q12h Chronic Conditions: * HLD: restarted Statin 08/26 Kate Jamil MD R2 Aug 27, 2016 09:45
[2016-08-27] MEDS: MEMANTINE HCL 10 MG TAB PO SCH ×2 (09:52→21:40)
[2016-08-27] MEDS: DOCUSATE SODIUM 50 MG/SENNA 8.6 MG TAB PO SCH ×2 (09:52→21:40)
[2016-08-27 10:00] LABS: AUTOMATED NEUTROPHIL # 6.6 TH/MM3 (1.8-7.7); BASOPHIL # 0.1 TH/MM3 (0-0.2); BASOPHIL % 0.7 % (0.0-2.0); EOSINOPHIL # 0.3 TH/MM3 (0-0.4); EOSINOPHIL % 2.9 % (0.0-4.0); HEMATOCRIT 35.3 % (39.0-51.0); HEMO FLAGS DIFF FINAL; LYMPH % 18.9 % (9.0-44.0); LYMPHOCYTE # 1.7 TH/MM3 (1.0-4.8); MEAN CELL VOLUME 87.4 FL (80.0-100.0); MEAN CORPUSCULAR HEMOGLOBIN 29.2 PG (27.0-34.0); MEAN CORPUSCULAR HGB CONC 33.4 % (32.0-36.0); MONO % 5.4 % (0.0-8.0); NEUT % 72.1 % (16.0-70.0); PLATELET COUNT 137 TH/MM3 (150-450); RED BLOOD COUNT 4.03 MIL/MM3 (4.50-5.90); RED CELL DISTRIBUTION WIDTH 14.8 % (11.6-17.2); WHITE BLOOD COUNT 9.1 TH/MM3 (4.0-11.0)
[2016-08-27 10:17] LABS: MAGNESIUM 1.9 MG/DL (1.5-2.5); POTASSIUM 3.3 MEQ/L (3.5-5.1)
[2016-08-27] MEDS ORDERED: POTASSIUM CHLORIDE 10 MEQ CONTROLLED RELEASE TAB PO ONE (11:00)
[2016-08-27] MEDS ORDERED: MAGNESIUM SULFATE 1 GM PREMIX 100 ML IV ONE (11:00)
[2016-08-27] MEDS: cefTRIAXone INJ 1,000 MG in SODIUM CHLORIDE 0.9% INJ 100 ML IV SCH (14:06)
[2016-08-27] MEDS: PRAVASTATIN SOD 80 MG TAB PO SCH (21:00)
[2016-08-27] MEDS: DONEPEZIL HCL 5 MG TAB PO SCH (21:39)
[2016-08-27] MEDS: PANTOPRAZOLE SODIUM 40 MG VIAL IV PUSH SCH (21:39)
[2016-08-28] VITALS: BP 130/65; PULSE 54; RESP 18; TEMP 97.3; O2SAT 99
[2016-08-28] MEDS: HEPARIN SODIUM - SQ 10,000 UNITS/ML VIAL SQ SCH (02:51)
[2016-08-28 04:00] VITALS: BP 154/74; PULSE 60; RESP 17; TEMP 98; O2SAT 99
[2016-08-28] MEDS: CHLORHEXIDINE GLUCONATE 2 % 1 PACK (2 CLOTHS) TOP SCH (04:00)
[2016-08-28] MEDS: CLINDAMYCIN INJ 600 MG in SODIUM CHLORIDE 0.9% INJ 100 ML IV SCH (05:22)
[2016-08-28 08:00] VITALS: BP 120/64; PULSE 60; RESP 18; TEMP 97.8; O2SAT 97
--- NOTE | 2016-08-28 08:12 | HHI.FPPN ---
Subjective Remarks No events overnight. Afebrile, vitals are stable. Patient appears comfortable this morning. Awake and alert. Does not verbalize. He is not following commands. Does make eye contact and smile. (Emerson Stringer MD R1) Objective Vitals Vital Signs Date Time Temp Pulse Resp B/P Pulse Ox O2 Delivery O2 Flow Rate FiO2 08/28/16 04:00 98.0 60 17 154/74 99 08/28/16 00:00 97.3 54 18 130/65 99 08/27/16 20:00 97.8 56 17 113/55 98 08/27/16 16:00 98.2 55 16 107/57 98 08/27/16 12:00 98.6 56 16 112/55 96 08/27/16 09:04 98 21 I/O 08/27/16 08/27/16 08/27/16 08/28/16 08/28/16 08/28/16 07:00 15:00 23:00 07:00 15:00 23:00 Intake Total 100 ml 852 ml 340 ml 150 ml Output Total 1000 ml 800 ml 550 ml Balance 100 ml -148 ml -460 ml -400 ml Intake Oral 600 ml 240 ml 50 ml IV Total 100 ml 252 ml 100 ml 100 ml Output Urine Total 1000 ml 800 ml 550 ml # Bowel Movements 0 0 (Emerson Stringer MD R1) Result Diagram: 08/27/1690408/27/16904 Objective Remarks GEN: Well-developed, well-nourished patient. No acute distress. Makes good eye contact and smiling. CV: Regular rate and rhythm without obvious murmurs LUNGS: Clear to auscultation bilaterally in the anterior lung power. Normal respiratory effort. No wheezes, rales, rhonchi. EXT: No edema. No calf tenderness. NEURO/PSYCH: Awake, alert. Not speaking. Not able to follow commands. ( Emerson Stringer MD R1) A/P Assessment and Plan 75 year old male with PMH of dementia, HTN, HLD who was admitted for altered mental status, ARF, electrolyte imbalances, and suspected aspiration pneumonia. Discharge Planning Discharge back to [facility] pending stabilization of sodium with discontinuation of fluids. Anticipate discharge today if electrolytes remain stable. Will call patient's to update her about potential discharge today. (Emerson Stringer MD R1) Assessment and Plan Attending note: Patient was seen and examined on the morning of 08/28/16 with the resident. Case reviewed and discussed with the resident. Agree with plan of care as discussed with me and documented in the resident note. (Macario Guajardo MD) Problem List: (1) Altered mental status Status: Resolved Plan: Suspected sepsis on admission due to altered mental status, hypotension, and leukocytosis. Source of infection was suspected urinary versus aspiration pneumonia however urine and blood cultures have been negative. Mental status is much improved and seems to be at patient's baseline. Likely due to uremia since he was found to have ANDREW with BUN/creatinine of 140/6.11 on admission -Mixed metabolic and respiratory acidosis on admission has resolved -Leukocytosis resolved Imaging: * Head CT: Atrophy otherwise negative * Repeat CXR shows minimal left basilar density likely to be atelectasis * CXR appears to be under aerated but is otherwise negative. * Abdominal x-ray: Unremarkable Medications: * Rocephin and Clindamycin to cover for UTI and aspiration respectively (both started 08/21 - Discontinued after 7 days) (2) Electrolyte abnormality Status: Acute Plan: Presented with severe electrolyte disturbances with hypernatremia and hyperkalemia which has been contributed due to severe dehydration with significant free water deficit. Admission sodium was 157 which continued to trend upward with a high of 164 despite fluid resuscitation utilizing NS and 1/ 2 NS. Was eventually switched to D5W before sodium improvement was seen. Bicarbonate was initially added to help with respiratory/metabolic acidosis but was discontinued due to suspected contribution to continued rise in sodium. -Potassium initially was elevated and was treated with insulin/D50, Kayexalate, calcium gluconate and hyperkalemia but has now resolved -Hypernatremia resolved, repeat this AM; fluids discontinued 08/26 (3) ARF (acute renal failure) Status: Resolved Plan: Likely due to dehydration. Creatinine was initially 6.11 on admission, now normalized Monitor I's and O's Renal US is unremarkable Nephrology consulted, appreciate recommendations. Has now signed off. (4) Dementia Status: Chronic Plan: Chronic, end-stage dementia Resumed home memantine and donepezil 08/26 Held fluoxetine and buspirone for now (5) Nutrition, metabolism, and development symptoms Status: Acute Plan: Fluids and Electrolytes as above Diet: per ST recommendations, added ensure to diet DVT Prophylaxis with heparin 5000 units subq q12h HLD: restarted home statin 08/[address] Guajardo (Emerson Stringer MD R1) Emerson Stringer MD R1 Aug 28, 2016 08:12 Macario Guajardo MD Aug 29, 2016 19:30
[2016-08-28 08:31] LABS: POTASSIUM 3.6 MEQ/L (3.5-5.1)
[2016-08-28 08:46] LABS: CALCIUM-PROTEIN CORRECTED 7.9 MG/DL (8.5-10.1)
--- NOTE | 2016-08-28 08:55 | HHI.DCPOC ---
Discharge Care Plan Diagnosis: (1) Dementia (2) Dehydration (3) Electrolyte abnormality (4) ARF (acute renal failure) (5) Altered mental status (6) Metabolic acidosis with respiratory acidosis (7) Rhabdomyolysis (8) Hypernatremia (9) Hyperkalemia Goals to Promote Your Health * To prevent worsening of your condition and complications * To maintain your health at the optimal level Directions to Meet Your Goals Take your medications as prescribed Follow your dietary instruction Follow activity as directed Keep your appointments as scheduled Take your immunizations and boosters as scheduled If your symptoms worsen call your PCP, if no PCP go to Urgent Care Center or Emergency Room Smoking is Dangerous to Your Health. Avoid second hand smoke Call the 24-hour hour crisis hotline for domestic abuse at Emerson Stringer MD R1 Aug 28, 2016 08:55
[2016-08-28] MEDS: SODIUM CHLORIDE 0.9% FLUSH 5 ML FLUSH FLUSH SCH (09:00)
[2016-08-28] MEDS: MEMANTINE HCL 10 MG TAB PO SCH (09:11)
[2016-08-28] MEDS ORDERED: AMLO2.5T PO (09:11)
[2016-08-28] MEDS: DOCUSATE SODIUM 50 MG/SENNA 8.6 MG TAB PO SCH (09:11)
[2016-08-28 09:37] VITALS: O2SAT 95
--- NOTE | 2016-08-28 09:53 | HHI.FF ---
Face to Face Verification Diagnosis: (1) Dehydration (2) Electrolyte abnormality (3) ARF (acute renal failure) (4) Hypernatremia (5) Hyperkalemia Physical Therapy Order: Evaluate and Treat, Improve ambulation, Strength and gait training Speech Therapy Order: To Improve: Speech and communication skills, Swallowing I have seen patient Maya Watkins on 08/28/16. My clinical findings support the need for the requested home health care services because: Ltd mobility - disease progression Limited ability to care for self I certify that my clinical findings support that this patient is homebound because: Impaired cognitive ability/safety Unsteady gait/balance Emerson Stringer MD R1 Aug 28, 2016 09:52
--- NOTE | 2016-08-28 10:04 | HHI.DS ---
Discharge Summary Admission Date Aug 21, 2016 at 12:03 Discharge Date: Aug 28, 2016 Admitting Diagnosis Hypernatremia, ARF (1) Altered mental status Diagnosis: Principal Plan: Suspected sepsis on admission due to altered mental status, hypotension, and leukocytosis. Source of infection was suspected urinary versus aspiration pneumonia however urine and blood cultures have been negative. Mental status is much improved and seems to be at patient's baseline. Likely due to uremia since he was found to have ANDREW with BUN/creatinine of 140/6.11 on admission -Mixed metabolic and respiratory acidosis on admission has resolved -Leukocytosis resolved Imaging: * Head CT: Atrophy otherwise negative * Repeat CXR shows minimal left basilar density likely to be atelectasis * CXR appears to be under aerated but is otherwise negative. * Abdominal x-ray: Unremarkable Medications: * Rocephin and Clindamycin to cover for UTI and aspiration respectively (both started 08/21 - Discontinued after 7 days) (2) Electrolyte abnormality Diagnosis: Principal Plan: Presented with severe electrolyte disturbances with hypernatremia and hyperkalemia which has been contributed due to severe dehydration with significant free water deficit. Admission sodium was 157 which continued to trend upward with a high of 164 despite fluid resuscitation utilizing NS and 1/ 2 NS. Was eventually switched to D5W before sodium improvement was seen. Bicarbonate was initially added to help with respiratory/metabolic acidosis but was discontinued due to suspected contribution to continued rise in sodium. -Potassium initially was elevated and was treated with insulin/D50, Kayexalate, calcium gluconate and hyperkalemia but has now resolved -Hypernatremia resolved, repeat this AM; fluids discontinued 08/26 (3) ARF (acute renal failure) Diagnosis: Principal Plan: Likely due to dehydration. Creatinine was initially 6.11 on admission, now normalized Monitor I's and O's Renal US is unremarkable Nephrology consulted, appreciate recommendations. Has now signed off. (4) Dementia Diagnosis: Secondary Plan: Chronic, end-stage dementia Resumed home memantine and donepezil 08/26 Held fluoxetine and buspirone for now (5) Nutrition, metabolism, and development symptoms Diagnosis: Secondary Plan: Fluids and Electrolytes as above Diet: per ST recommendations, added ensure to diet DVT Prophylaxis with heparin 5000 units subq q12h HLD: restarted home statin 08/[address] [facility] Brief History 75 year old male with PMH of dementia, HTN, HLD brought to ED by EVAC from his living facility [facility] after being found with altered mental status moreso than his baseline. His is present in the ED to provide some history , however she has been undergoing chemotherapy thus has not been visiting the living facility as much as usual. states she was called by [facility] this AM after the patient was not responding. She was told the patient was found in his bed with altered mental status and not verbal, and remained not verbal after sternal rub. Patient has been living at [facility] since mid 2015. states at baseline patient is able to walk around for short periods of time, feeding needs to be assisted. He usually does not remember who she is. states his last fall was about one month ago; reports it was a mild fall with no significant trauma. He does have tremors which are baseline per . She is not aware of any recent fevers, chills, and states she has not been told of any adverse events while patient has been living at [facility] recently. CBC/BMP: 08/27/16 0905 08/28/16 0557 Significant Findings Laboratory Tests Test 08/25/16 08/26/16 08/26/16 08/27/16 18:30 06:40 15:33 09:05 Chloride Level 111 MEQ/L 113 MEQ/L 112 MEQ/L 111 MEQ/L (98-107) (98-107) (98-107) (98-107) Estimat Glomerular Filtration 76 ML/MIN (>89) 83 ML/MIN (>89) Rate Calcium Level 6.9 MG/DL 7.1 MG/DL 7.1 MG/DL 7.5 MG/DL (8.5-10.1) (8.5-10.1) (8.5-10.1) (8.5-10.1) Protein Corrected Calcium 7.3 MG/DL 8.0 MG/DL 7.9 MG/DL (8.5-10.1) (8.5-10.1) (8.5-10.1) Total Protein 6.3 GM/DL 5.4 GM/DL 5.6 GM/DL (6.4-8.2) (6.4-8.2) (6.4-8.2) Red Blood Count 3.84 MIL/MM3 4.03 MIL/MM3 (4.50-5.90) (4.50-5.90) Hemoglobin 11.0 GM/DL 11.8 GM/DL (13.0-17.0) (13.0-17.0) Hematocrit 33.4 % 35.3 % (39.0-51.0) (39.0-51.0) Platelet Count 135 TH/MM3 137 TH/MM3 (150-450) (150-450) Neutrophils (%) (Auto) 73.9 % 72.1 % (16.0-70.0) (16.0-70.0) Sodium Level 146 MEQ/L (136-145) Potassium Level 3.4 MEQ/L 3.3 MEQ/L (3.5-5.1) (3.5-5.1) Blood Urea Nitrogen 4 MG/DL (7-18) Test 08/28/16 05:57 Chloride Level 111 MEQ/L (98-107) Blood Urea Nitrogen 4 MG/DL (7-18) Calcium Level 7.3 MG/DL (8.5-10.1) Protein Corrected Calcium 7.9 MG/DL (8.5-10.1) Total Protein 5.9 GM/DL (6.4-8.2) Imaging Renal US unremarkable Head CT no acute intracranial abnormality PE at Discharge GEN: Well-developed, well-nourished patient. No acute distress. Makes good eye contact and smiling. CV: Regular rate and rhythm without obvious murmurs LUNGS: Clear to auscultation bilaterally in the anterior lung power. Normal respiratory effort. No wheezes, rales, rhonchi. EXT: No edema. No calf tenderness. NEURO/PSYCH: Awake, alert. Not speaking. Not able to follow commands. Hospital Course Nephrology was consulted for recommendations given patient with multiple electrolyte abnormalities, probably rhabdomyolysis, acute renal failure, and mixed metabolic and respiratory acidosis. Hypernatremia was initially managed with normal saline, however later transitioned to 1/2NS and later to D5W given slow correction of hypernatremia. Hyperkalemia required management with calcium gluconate, insulin with glucose, and kayexalate. Rocephin and Clindamycin were started due to suspected UTI and aspiration pneumonia given patient with emesis in back of throat on admission. Patient completed 7 days of both antibiotics. Electrolyte abnormalities were corrected and patients acidosis also resolved. Per discussion with patient's , the patient is at baseline neurological status. He is able to tolerate diet per speech therapy recommendations; and his electrolytes have remained stable after discontinuation of IVF for greater than 24 hours. Pt Condition on Discharge: Stable Discharge Disposition: Discharge to SNF Discharge Instructions DIET: Follow Instructions for: As Tolerated, No Restrictions Speech Therapy-Diet Recommends: Honey Thickened Liquids, Pureed Activities you can perform: Weight Bearing as Mimi Other Activity Instructions: Patient will need PT 3-5 times per week and likely need assistance ambulating. Follow up Referrals: PCP Follow-up - 1 Week SNF/[facility]/ with [facility] New Orders: BASIC METABOLIC PROF - 3-5 Days MAGNESIUM (MG) - 3-5 Days New Medications: Amlodipine (Amlodipine) 2.5 Mg Tab 2.5 MG PO DAILY Blood Pressure Management #30 Ref 0 TAB Continued Medications: Aspirin (Aspirin) 81 Mg Chew 81 MG CHEW DAILY Ref 0 TAB Buspirone (Buspirone) 10 Mg Tab 20 MG PO TID Anxiety Ref 0 TAB Donepezil (Donepezil) 10 Mg Tab 10 MG PO HS Dementia #30 Ref 0 TAB Fluoxetine (Fluoxetine) 20 Mg Cap 20 MG PO DAILY #30 Ref 0 CAP Memantine (Memantine) 10 Mg Tab 10 MG PO BID Alzheimer's Dementia Ref 0 TAB Sennosides-Docusate Sodium (Senokot S) 8.6-50 Mg Tab 2 TAB PO DAILY Constipation Ref 0 TAB Simvastatin (Simvastatin) 40 Mg Tab 40 MG PO HS Cholesterol Management #30 Ref 0 TAB Discontinued Medications: Lisinopril (Lisinopril) 40 Mg Tab 40 MG PO DAILY Blood Pressure Management #30 Ref 0 TAB Emerson Stringer MD R1 Aug 28, 2016 10:04
[2016-08-28] MEDS: cefTRIAXone INJ 1,000 MG in SODIUM CHLORIDE 0.9% INJ 100 ML IV SCH (10:42)
[2016-08-28 12:00] VITALS: BP 131/50; PULSE 61; RESP 18; TEMP 97; O2SAT 98
== END 2016-08-28 14:50 | DRG 178 ==
LOC: NEPA 09:50 → NEDA 12:03 → HIMW 18:30 → N04A 08-25 18:46
PROVIDERS: ADMIT Family Medicine; ATTEND Family Medicine
DX: J69.0 Pneumonitis due to inhalation of food and vomit (principal); N39.0 Urinary tract infection, site not specified; E87.0 Hyperosmolality and hypernatremia; N17.9 Acute kidney failure, unspecified; E87.4 Mixed disorder of acid-base balance; K56.7 Ileus, unspecified; E87.1 Hypo-osmolality and hyponatremia; M62.82 Rhabdomyolysis; G30.9 Alzheimer's disease, unspecified; F02.80 Dementia in other diseases classified elsewhere, unspecified severity, without behavioral disturbance, psychotic disturbance, mood disturbance, and anxiety; E87.5 Hyperkalemia; M41.9 Scoliosis, unspecified; E86.0 Dehydration; E78.5 Hyperlipidemia, unspecified; E87.6 Hypokalemia; I12.9 Hypertensive chronic kidney disease with stage 1 through stage 4 chronic kidney disease, or unspecified chronic kidney disease; N18.3 Chronic kidney disease, stage 3 (moderate); Z66 Do not resuscitate; Z87.891 Personal history of nicotine dependence
CPT/HCPCS: 51702; 70450; 71010; 74000; 76775; 80048; 80053; 80307; 80329; 81001; 82140; 82550; 82552; 82570; 82805; 83605; 83735; 83930; 83935; 84155; 84300; 84484; 85025; 87040; 87086; 87641; 93005; 93306; 95819; 96360; C9113; G0480; J0610; J0696; J1644; J1815; J2270; J3475; J3480; J7030; J7070

== ENCOUNTER 2018-04-06 09:51 | Inpatient (IN) ==
--- NOTE | 2018-04-06 10:18 | ED ---
HPI General Chief Complaint: Altered Mental Status Stated Complaint: Confusion Time Seen by Provider: 04/06/18 10:05 Source: EMS Mode of arrival: EMS Limitations: altered mental status History of Present Illness HPI narrative: 77-year-old male patient presenting from the custodial, history of dementia, usually nonverbal, presents to the ER today brought in by EMS because custodial staff noticed that he is less responsive than usual. He has a low-grade fever of 100.1 in the ER. Staff had noted that he had low oxygen saturation but they were not able to give us any numbers, they have put him on 2 L nasal cannula. He is not able to give me any further history. Related Data Home Medications Medication Instructions Recorded Confirmed dextromethorphan-quinidine 1 cap PO Q12H 04/06/18 04/06/18 [Nuedexta] divalproex 250 mg PO TID 04/06/18 04/06/18 sennosides [senna] 2 tab PO DAILY 04/06/18 04/06/18 simvastatin 40 mg PO QPM 04/06/18 04/06/18 Allergies Allergy/AdvReac Type Severity Reaction Status Date / Time No Known Allergies Allergy Uncoded 08/21/16 10:07 Review of Systems ROS Unobtainable ROS Unobtainable: unobtainable due to mental status PMFSH History History Provided By: Medical Record Medical History Medical History CAD (coronary artery disease) (Acute) Dementia (Acute) HTN (hypertension) (Acute) High cholesterol (Acute) Social History Social History Substance History: No History of Abuse Smoking Status: Unknown if ever smoked How Often Do You Have a Drink Containing Alcohol: Never Recent Travel in [facility] within the Last 8 Weeks: No Recent Out of Country Travel within the Last 8 Weeks: No Exam Narrative Exam Narrative: GENERAL: Well-developed elderly white male patient who is currently not in acute distress. Resting, awake, returns to the sound of my voice, nonverbal. SKIN: Focused skin assessment warm/dry. HEAD: Atraumatic. Normocephalic. EYES: Pupils equal and round. No scleral icterus. No injection or drainage. ENT: No nasal bleeding or discharge. Mucous membranes pink and moist. NECK: Trachea midline. No JVD. CARDIOVASCULAR: Regular rate and rhythm. No murmur appreciated. RESPIRATORY: No accessory muscle use. Clear to auscultation. Breath sounds equal bilaterally. GASTROINTESTINAL: Abdomen soft, non-tender, nondistended. Hepatic and splenic margins not palpable. MUSCULOSKELETAL: No obvious deformities. No clubbing. No cyanosis. No edema. NEUROLOGICAL: Awake and alert. Face is symmetrical.. Nonverbal. Not following commands. PSYCHIATRIC: Nonverbal and unable to assess. Course Initial Documented Vital Signs Temperature 100.1 F H 04/06/18 10:09 Pulse Rate 79 04/06/18 10:09 Respiratory Rate 21 04/06/18 10:09 Blood Pressure 159/70 H 04/06/18 10:09 Pulse Oximetry 97 04/06/18 10:09 Last Documented Vital Signs Temperature 100.1 F H 04/06/18 10:09 Pulse Rate 68 04/06/18 12:14 Respiratory Rate 16 04/06/18 12:14 Blood Pressure 124/68 04/06/18 12:14 Pulse Oximetry 99 04/06/18 12:14 Medical Decision Making MDM Narrative Medical decision making narrative: Lab work shows significant white count elevation. Chest x-ray and urine was fairly clean, there is no obvious source. He has a low-grade fever in the ER. Considering his history and age, IV antibiotics were initiated after cultures were drawn. The rest of the lab work was fairly unremarkable except for some signs of mild dehydration. Planning to admit for further evaluation and treatment. Case discussed with Dr. Raman for admission. Medical Screen Exam Complete: Yes Emergency Medical Condition: Yes Differential Diagnosis Differential Diagnosis: Sepsis versus dehydration versus electrolyte abnormalities versus acute CVA Lab Data Lab results reviewed: Yes I reviewed the patient's lab results. Result diagrams: 04/06/18 10:30 04/06/18 10:30 Lab Results 04/06/18 04/06/18 04/06/18 Range/Units 10:30 10:30 10:30 WBC 19.1 H (4.0-11.0) th/mm3 RBC 4.70 (4.50-5.90) mil/mm3 Hgb 14.0 (13.0-17.0) gm/dL Hct 43.4 (39.0-51.0) % MCV 92.4 (80.0-100.0) fL MCH 29.8 (27.0-34.0) pg MCHC 32.2 (32.0-36.0) % RDW 16.1 (11.6-17.2) % Plt Count 236 (150-450) th/mm3 MPV 8.9 (7.0-11.0) fL Neut % (Auto) 85.2 H (16.0-70.0) % Lymph % (Auto) 6.6 L (9.0-44.0) % Mcintosh % (Auto) 8.0 (0.0-8.0) % Eos % (Auto) 0.1 (0.0-4.0) % Baso % (Auto) 0.1 (0.0-2.0) % Neut # (Auto) 16.3 H (1.8-7.7) th/mm3 Lymph # (Auto) 1.3 (1.0-4.8) th/mm3 Mcintosh # (Auto) 1.5 H (0.0-0.9) th/mm3 Eos # (Auto) 0.0 (0.0-0.4) th/mm3 Baso # (Auto) 0.0 (0.0-0.2) th/mm3 WBC Differential . Differential Comment Auto diff final PT 12.7 H (9.8-11.6) sec INR 1.3 Ratio APTT 28.7 (24.3-30.1) sec Sodium 148 H (136-145) meq/L Potassium 3.3 L (3.5-5.1) meq/L Chloride 111 H (98-107) meq/L Carbon Dioxide 29.0 (21.0-32.0) meq/L Anion Gap 8 (5-15) meq/L BUN 25 H (7-18) mg/dL Creatinine 0.95 (0.60-1.30) mg/dL Estimated GFR 76 L (>89) mL/min Random Glucose 108 H (74-106) mg/dL Lactic Acid (0.4-2.0) mmol/L Calcium 8.6 (8.5-10.1) mg/dL Total Bilirubin 0.6 (0.2-1.0) mg/dL AST 33 (15-37) U/L ALT 36 (12-78) U/L Alkaline Phosphatase 88 (45-117) U/L Troponin I Less than 0.02 L (0.02-0.05) ng/mL Total Protein 7.6 (6.4-8.2) g/dL Albumin 2.4 L (3.4-5.0) g/dL Urine Color (Yellw/Straw) Urine Clarity (Clear) Urine pH (5.0-8.5) Ur Specific [place] (1.002-1.035) Urine Protein (Neg-Trace) mg/dL Urine Glucose (UA) (Negative) mg/dL Urine Ketones (Negative) mg/dL Urine Occult Blood (Negative) Urine Nitrate (Negative) Urine Bilirubin (Negative) Urine Urobilinogen (Less than 2) mg/dL Ur Leukocyte Esterase (Negative) Urine RBC (0-3) /hpf Urine WBC (0-5) /hpf Urine Mucus (Occasional) /lpf Micro UA Comment Ur Microscopic Review Urine Culture Comments 04/06/18 04/06/18 Range/Units 10:30 10:30 WBC (4.0-11.0) th/mm3 RBC (4.50-5.90) mil/mm3 Hgb (13.0-17.0) gm/dL Hct (39.0-51.0) % MCV (80.0-100.0) fL MCH (27.0-34.0) pg MCHC (32.0-36.0) % RDW (11.6-17.2) % Plt Count (150-450) th/mm3 MPV (7.0-11.0) fL Neut % (Auto) (16.0-70.0) % Lymph % (Auto) (9.0-44.0) % Mcintosh % (Auto) (0.0-8.0) % Eos % (Auto) (0.0-4.0) % Baso % (Auto) (0.0-2.0) % Neut # (Auto) (1.8-7.7) th/mm3 Lymph # (Auto) (1.0-4.8) th/mm3 Mcintosh # (Auto) (0.0-0.9) th/mm3 Eos # (Auto) (0.0-0.4) th/mm3 Baso # (Auto) (0.0-0.2) th/mm3 WBC Differential Differential Comment PT (9.8-11.6) sec INR Ratio APTT (24.3-30.1) sec Sodium (136-145) meq/L Potassium (3.5-5.1) meq/L Chloride (98-107) meq/L Carbon Dioxide (21.0-32.0) meq/L Anion Gap (5-15) meq/L BUN (7-18) mg/dL Creatinine (0.60-1.30) mg/dL Estimated GFR (>89) mL/min Random Glucose (74-106) mg/dL Lactic Acid 1.0 (0.4-2.0) mmol/L Calcium (8.5-10.1) mg/dL Total Bilirubin (0.2-1.0) mg/dL AST (15-37) U/L ALT (12-78) U/L Alkaline Phosphatase (45-117) U/L Troponin I (0.02-0.05) ng/mL Total Protein (6.4-8.2) g/dL Albumin (3.4-5.0) g/dL Urine Color Asha (Yellw/Straw) Urine Clarity Hazy H (Clear) Urine pH 5.0 (5.0-8.5) Ur Specific [place] 1.027 (1.002-1.035) Urine Protein 30 H (Neg-Trace) mg/dL Urine Glucose (UA) Negative (Negative) mg/dL Urine Ketones Negative (Negative) mg/dL Urine Occult Blood Small H (Negative) Urine Nitrate Negative (Negative) Urine Bilirubin Negative (Negative) Urine Urobilinogen 4 or greater (Less than 2) mg/dL Ur Leukocyte Esterase Negative (Negative) Urine RBC 2 (0-3) /hpf Urine WBC 2 (0-5) /hpf Urine Mucus Few H (Occasional) /lpf Micro UA Comment Cath-culture not ind Ur Microscopic Review Not Reportable Urine Culture Comments Cath-cult not ind Imaging Data Attestation: I personally reviewed and interpreted this imaging study as follows : Radiologist's impression: Chest X-Ray 04/06/18 10:05 CONCLUSION: No appreciable change since the prior examination without focal consolidation. Head CT 04/06/18 10:05 CONCLUSION: 1. Prominent but stable cerebral atrophy. 2. No acute intracranial abnormality or significant interval change. . Discharge Plan Discharge Disposition Patient Disposition: 30 Still Patient Discharge Condition Condition: Fair Discharge Details Anticipated Discharge Date: 04/06/18 Diagnosis: Sepsis, Altered mental status Physicians Team ED Provider: Saundra Reardon Primary Care Provider: Jose Hargroev Rxs /Orders / Referrals /Forms Prescriptions: No Action sennosides [senna] 8.6 mg Tablet 2 tab PO DAILY RF: 0 divalproex 250 mg Tablet,Delayed Release (Dr/Ec) 250 mg PO TID RF: 0 simvastatin 40 mg Tablet 40 mg PO QPM RF: 0 dextromethorphan-quinidine [Nuedexta] 20-10 mg Capsule 1 cap PO Q12H RF: 0 Discharge Interventions Interventions: Vital Signs Last Done: 04/06/18 12:14 Status ED Status: With Doctor
[2018-04-06 10:54] LABS: Baso % (Auto) 0.1 % (0.0-2.0); Eos % (Auto) 0.1 % (0.0-4.0); Hematocrit 43.4 % (39.0-51.0); Lymph # (Auto) 1.3 th/mm3 (1.0-4.8); Lymph % (Auto) 6.6 % (9.0-44.0); Mean Corpuscular HGB Conc 32.2 % (32.0-36.0); Mean Corpuscular Hemoglobin 29.8 pg (27.0-34.0); Mean Corpuscular Volume 92.4 fL (80.0-100.0); Mean Platelet Volume 8.9 fL (7.0-11.0); Mono # (Auto) 1.5 th/mm3 (0.0-0.9); Neut # (Auto) 16.3 th/mm3 (1.8-7.7); Neut % (Auto) 85.2 % (16.0-70.0); Platelet Count 236 th/mm3 (150-450); Red Cell Distribution Width 16.1 % (11.6-17.2); White Blood Count 19.1 th/mm3 (4.0-11.0)
--- NOTE | 2018-04-06 10:54 | XR ---
EXAM DATE: 04/06/2018 10:48 AM EDT AGE/SEX: 77 years / Male INDICATIONS: Cough. CLINICAL DATA: This is the patient's initial encounter. Patient reports that signs and symptoms have been present for 1 day and indicates a pain score of Nonresponsive. MEDICAL/SURGICAL HISTORY: Dementia. Hypertension. Non-responsive. [place] [facility] [place] . FINDINGS: There is slight cardiomegaly and prominence of the interstitial markings chronic in nature not signif icantly changed. Focal consolidation is not seen. CONCLUSION: No appreciable change since the prior examination without focal consolidation. Electronically signed by: Tahmina Carrasco MD 04/06/2018 10:52 AM EDT
[2018-04-06] MEDS ORDERED: Azithromycin Inj 500 MG in Sodium Chlor 0.9% Inj 250 ML IV.SIG ONE (11:01)
--- NOTE | 2018-04-06 11:01 | CT ---
EXAM DATE: 04/06/2018 10:56 AM EDT AGE/SEX: 77 years / Male INDICATIONS: Altered mental status. CLINICAL DATA: This is the patient's initial encounter. Patient reports that signs and symptoms have been present for 3 days and indicates a pain score of 0/10. MEDICAL/SURGICAL HISTORY: None. None. RADIATION DOSE: 40.11 CTDI (mGy) [place] [facility] [place]. . TECHNIQUE: CT of the head without contrast. Using automated exposure control and adjustment of the mA and/or kV according to patient size, radiation dose was kept as low as reasonably achievable to ob tain optimal diagnostic quality images. DICOM format image data is available electronically for revi ew and comparison. FINDINGS: Cerebrum: Prominent diffuse cerebral atrophy. The ventricles are in the upper limits of normal given the degree of atrophy but are stable from prior exam. No evidence of midline shift, mass lesion, hem orrhage or acute infarction. No extraaxial fluid collections are seen. Posterior Fossa: The cerebellum and brainstem are intact. The 4th ventricle is midline. The cerebe llopontine angle is unremarkable. Extracranial: The visualized portion of the orbits is intact. Skull: The calvaria is intact. No evidence of skull fracture. CONCLUSION: 1. Prominent but stable cerebral atrophy. 2. No acute intracranial abnormality or significant interval change. . Electronically signed by: Edu Romero MD 04/06/2018 11:00 AM EDT
[2018-04-06 11:03] LABS: Bilirubin,Urine Negative (Negative); Clarity,Urine Hazy (Clear); Color,Urine Amber (Yellw/Straw); Glucose,Urine (UA) Negative (Negative); Leukocyte Esterase,Urine Negative (Negative); Mucus,Urine Few /lpf (Occasional); Nitrite,Urine Negative (Negative); Specific Gravity,Urine 1.027 (1.002-1.035); Urobilinogen,Urine 4 or Greater mg/dL (Less than 2)
[2018-04-06 11:05] LABS: Activated Partial Thrombo Time 28.7 sec (24.3-30.1); INR 1.3 Ratio; Prothrombin Time 12.7 sec (9.8-11.6)
[2018-04-06 11:07] LABS: Albumin 2.4 g/dL (3.4-5.0); Anion Gap 8 meq/L (5-15); Aspartate Aminotransferase 33 U/L (15-37); Blood Urea Nitrogen 25 mg/dL (7-18); Calcium 8.6 mg/dL (8.5-10.1); Chloride 111 meq/L (98-107); Glomerular Filtration Rate 76 mL/min (>89); Glucose,Random 108 mg/dL (74-106); Potassium 3.3 meq/L (3.5-5.1); Sodium 148 meq/L (136-145)
[2018-04-06 11:12] LABS: Alanine Aminotransferase 36 U/L (12-78); Alkaline Phosphatase 88 U/L (45-117); Total Protein 7.6 g/dL (6.4-8.2)
[2018-04-06] MEDS ORDERED: Acetaminophen 325 MG Tablet PO PRN (14:00)
[2018-04-06] MEDS ORDERED: Bisacodyl 10 MG Supp RECTAL PRN (14:00)
--- NOTE | 2018-04-06 14:04 | P.HP ---
History of Present Illness Primary Care Physician: Jose Hargrove Chief Complaint: Altered mental status History of Present Illness: This is a pleasant 77 y/o Male who came from [facility] with history of Dementia, usually nonverbal, presents to the ER today brought in by EMS because half-way staff noticed that he is less responsive than usual. He has a low-grade fever of 100.1 in the ER. Staff had noted that he had low oxygen saturation but they were not able to give us any numbers, they have put him on 2 L nasal cannula. He is not able to give me any further history. Seen in Emergency room he is DNR and poor prognosis, non verbal patient, will consult product distribution specialist from ID search will complete a CT abdomen and Pelvis to look for source of infection. Review of Systems unobtainable due to mental condition PMFSH - History History Provided By: Medical Record - Medical History Medical History: Medical History (Last Updated 04/06/18 @ 10:40 by Sruthi Munoz RN) CAD (coronary artery disease) Dementia HTN (hypertension) High cholesterol - Tobacco History Smoking Status: Unknown if ever smoked - Alcohol History How Often Do You Have a Drink Containing Alcohol: Never - Substance Use History Substance History: No History of Abuse - Travel History Recent Travel in the [place] Within the Last 8 Weeks: No Recent Travel Out of the Country Within the Last 8 Weeks: No - Immunization History Tetanus Immunization: Unsure Medications and Allergies Active Medications: Active Medications Sodium Chloride (Ns Flush) 2 ml IV.FLUSH PRN PRN PRN Reason: FLUSH AFTER USING IV ACCESS Allergies Allergy/AdvReac Type Severity Reaction Status Date / Time No Known Allergies Allergy Uncoded 08/21/16 10:07 Home Medications Medication Instructions Recorded Confirmed Type dextromethorphan-quinidine 1 cap PO Q12H 04/06/18 04/06/18 History [Nuedexta] divalproex 250 mg PO TID 04/06/18 04/06/18 History sennosides [senna] 2 tab PO DAILY 04/06/18 04/06/18 History simvastatin 40 mg PO QPM 04/06/18 04/06/18 History Exam Vital signs: Vital Signs 04/06/18 10:09 04/06/18 10:30 04/06/18 12:14 Temperature 100.1 F H Pulse Rate 79 68 Respiratory Rate 21 16 Blood Pressure 159/70 H 124/68 Pulse Oximetry 97 96 99 Intake & Output 04/05/18 04/06/18 04/06/18 18:59 06:59 18:59 Weight 81.647 kg Narrative: GENERAL: Non verbal patient, denotes chronic condition. mouth open to breath, do not open eyes. SKIN: Focused skin assessment warm/dry. HEAD: Atraumatic. Normocephalic. EYES: Pupils equal and round. Miotic pupils. ENT: No nasal bleeding or discharge. Mucous membranes pink and moist. NECK: Trachea midline. No JVD. CARDIOVASCULAR: Regular rate and rhythm. No murmur appreciated. RESPIRATORY: No accessory muscle use. Clear to auscultation. Breath sounds equal bilaterally. GASTROINTESTINAL: Abdomen soft, non-tender, nondistended. Hepatic and splenic margins not palpable. MUSCULOSKELETAL: No obvious deformities. No clubbing. No cyanosis. No edema. NEUROLOGICAL: Awake and alert. Face is symmetrical.. Nonverbal. Not following commands. PSYCHIATRIC: Nonverbal and unable to assess. Results - Labs CBC & Chem 7: 04/06/18 10:30 04/06/18 10:30 Labs: Laboratory Results - last 24 hr 04/06/18 04/06/18 04/06/18 10:30 10:30 10:30 WBC 19.1 H RBC 4.70 Hgb 14.0 Hct 43.4 MCV 92.4 MCH 29.8 MCHC 32.2 RDW 16.1 Plt Count 236 MPV 8.9 Neut % (Auto) 85.2 H Lymph % (Auto) 6.6 L [place] % (Auto) 8.0 Eos % (Auto) 0.1 Baso % (Auto) 0.1 Neut # (Auto) 16.3 H Lymph # (Auto) 1.3 [place] # (Auto) 1.5 H Eos # (Auto) 0.0 Baso # (Auto) 0.0 WBC Differential . Differential Comment Auto diff final PT 12.7 H INR 1.3 APTT 28.7 Sodium 148 H Potassium 3.3 L Chloride 111 H Carbon Dioxide 29.0 Anion Gap 8 BUN 25 H Creatinine 0.95 Estimated GFR 76 L Random Glucose 108 H Lactic Acid Calcium 8.6 Total Bilirubin 0.6 AST 33 ALT 36 Alkaline Phosphatase 88 Troponin I Less than 0.02 L Total Protein 7.6 Albumin 2.4 L Urine Color Urine Clarity Urine pH Ur Specific [place] Urine Protein Urine Glucose (UA) Urine Ketones Urine Occult Blood Urine Nitrate Urine Bilirubin Urine Urobilinogen Ur Leukocyte Esterase Urine RBC Urine WBC Urine Mucus Micro UA Comment Ur Microscopic Review Urine Culture Comments 04/06/18 04/06/18 10:30 10:30 WBC RBC Hgb Hct MCV MCH MCHC RDW Plt Count MPV Neut % (Auto) Lymph % (Auto) [place] % (Auto) Eos % (Auto) Baso % (Auto) Neut # (Auto) Lymph # (Auto) [place] # (Auto) Eos # (Auto) Baso # (Auto) WBC Differential Differential Comment PT INR APTT Sodium Potassium Chloride Carbon Dioxide Anion Gap BUN Creatinine Estimated GFR Random Glucose Lactic Acid 1.0 Calcium Total Bilirubin AST ALT Alkaline Phosphatase Troponin I Total Protein Albumin Urine Color Asha Urine Clarity Hazy H Urine pH 5.0 Ur Specific [place] 1.027 Urine Protein 30 H Urine Glucose (UA) Negative Urine Ketones Negative Urine Occult Blood Small H Urine Nitrate Negative Urine Bilirubin Negative Urine Urobilinogen 4 or greater Ur Leukocyte Esterase Negative Urine RBC 2 Urine WBC 2 Urine Mucus Few H Micro UA Comment Cath-culture not ind Ur Microscopic Review Not Reportable Urine Culture Comments Cath-cult not ind - Imaging Impressions Chest X-Ray 04/06/18 10:05 CONCLUSION: No appreciable change since the prior examination without focal consolidation. Head CT 04/06/18 10:05 CONCLUSION: 1. Prominent but stable cerebral atrophy. 2. No acute intracranial abnormality or significant interval change. . Caprini VTE Risk Assessment Caprini VTE Risk Assessment: Moderate/High Risk (score >= 2) Caprini Risk Assessment Model: Point Value = 1 Point Value = 2 Point Value = 3 Point Value = 5 Age 41-60 Minor surgery BMI > 25 kg/m2 Swollen legs Varicose veins or History of unexplained or recurrent spontaneous Oral contraceptives or hormone replacement Sepsis (< 1 month) Serious lung disease, including pneumonia (< 1 month) Abnormal pulmonary function Acute myocardial infarction Congestive heart failure (< 1 month) History of inflammatory bowel disease Medical patient at bed rest Age 61-74 Arthroscopic surgery Major open surgery (> 45 min) Laparoscopic surgery (> 45 min) Malignancy Confined to bed (> 72 hours) Immobilizing plaster cast Central venous access Age >= 75 History of VTE Family history of VTE Factor V Leiden Prothrombin [id number] Lupus anticoagulant Anticardiolipin antibodies Elevated serum homocysteine Heparin-induced thrombocytopenia Other congenital or acquired thrombophilia Stroke (< 1 month) Elective arthroplasty Hip, pelvis, or leg fracture Acute spinal cord injury (< 1 month) Prophylaxis Regimen: Total Risk Factor Score Risk Level Prophylaxis Regimen 0-1 Low Early ambulation 2 Moderate Order ONE of the following: *Sequential Compression Device (SCD) *Heparin 5000 units SQ BID 3-4 Higher Order ONE of the following medications: *Heparin 5000 units SQ TID *Enoxaparin/Lovenox 40 mg SQ daily (WT < 150 kg, CrCl > 30 mL/min) *Enoxaparin/Lovenox 30 mg SQ daily (WT < 150 kg, CrCl > 10-29 mL/min) *Enoxaparin/Lovenox 30 mg SQ BID (WT < 150 kg, CrCl > 30 mL/min) AND/OR *Sequential Compression Device (SCD) 5 or more Highest Order ONE of the following medications: *Heparin 5000 units SQ TID (Preferred with Epidurals) *Enoxaparin/Lovenox 40 mg SQ daily (WT < 150 kg, CrCl > 30 mL/min) *Enoxaparin/Lovenox 30 mg SQ daily (WT < 150 kg, CrCl > 10-29 mL/min) *Enoxaparin/Lovenox 30 mg SQ BID (WT < 150 kg, CrCl > 30 mL/min) AND *Sequential Compression Device (SCD) Assessment and Plan - Plan 1. Acute on chronic metabolic encephalopathy almost at baseline. 2. Dementia by history 3. Leukocytosis with CXR and Urine fairly clean, no clear source of infection, taken blood cultures in ER started Empiric antibiotics, Sepsis and dehydration, WBC 19.1 Neutrophil 85.2%. Potassium 3.3 Cardiac enzymes negative. 4. Hyperlipidemia continue Home medicines will get Speech therapy evaluation Consult Speech therapy leave NPO continue antibiotics follow Palliative care recommendations. continue IV fluids DVT prophylaxis with Lovenox. Code Status: DNR Discussed Condition With: ER specialist. Discharge Planning: awaiting final by Palliative care
[2018-04-06] MEDS: Sod Chloride 0.9% Inj 1,000 ML IV.CONT SCH (14:25)
[2018-04-06] MEDS: Enoxaparin Inj 40 MG/0.4 ML Syringe SQ SCH (15:25)
--- NOTE | 2018-04-06 16:13 | CT ---
EXAM DATE: 04/06/2018 3:57 PM EDT AGE/SEX: 77 years / Male INDICATIONS: Increase white blood cells. Unknown source of infection. CLINICAL DATA: This is the patient's initial encounter. Patient reports that signs and symptoms have been present for 1 day and indicates a pain score of Nonresponsive. MEDICAL/SURGICAL HISTORY: Hypertension. Coronary artery disease. None. RADIATION DOSE: 15.21 CTDI (mGy) ; Patient positioning COMPARISON: No prior exams available for comparison. TECHNIQUE: Multiple contiguous axial images were obtained through the abdomen. Images were obtained using multiple row detector helical technique. Using automated exposure control and adjustment of the mA and/or kV according to patient size, radiation dose was kept as low as reasonably achievable to o btain optimal diagnostic quality images. DICOM format image data is available electronically for rev iew and comparison. FINDINGS: Abdomen CT: The spleen, pancreas, kidneys, adrenals are unremarkable. Approximate 2.2 cm simple cyst left hepatic lobe with punctate calcification adjacent to a benign in appearance with a separate approximate 4.5 cm cyst right hepatic lobe medially. The gallbladder appears distended measures 9.3 cm in size with h aziness surrounding it suspicious for acute cholecystitis partially extending to the hepatic flexure. There is no evidence for any appreciable pathological adenopathy, free fluid, or bowel obstruction. There is interstitial process in both lung bases of indeterminate age probably chronic. Coronary art vicki calcifications are seen typically seen with coronary artery disease and clinical correlation and evaluation is suggested. There are atherosclerotic calcifications involving the aorta and iliac arter ies chronic in nature. Pelvic CT: There is no evidence for mass, abscess formation, or any significant adenopathy within the pelvis. Th ere is extensive stool in the rectum with fecal impaction in transverse diameter of the rectum measur es 8.5 cm. There are degenerative changes in the lumbar spine with Schmorl nodes formation. CONCLUSION: 1. Distended gallbladder with significant inflammatory process surrounding it which extends to the h epatic flexure and involves parts of the colon wall highly concerning for acute cholecystitis. 2. Fecal impaction. 3. Probable chronic initial process both lung bases. Electronically signed by: Tahmina Carrasco MD 04/06/2018 4:12 PM EDT
[2018-04-06 17:47] LABS: Creatine Kinase 16 U/L (39-308)
[2018-04-06] MEDS: Potassium Chlor 10 mEq Premix 10 MEQ/100 ML PIGGYBACK IV.SIG SCH ×4 (17:49→23:30)
[2018-04-06] MEDS: Senna/Docusate Sodium 8.6/50 MG Tablet PO SCH (21:35)
[2018-04-07 00:01] LABS: Creatine Kinase 18 U/L (39-308)
[2018-04-07] MEDS: Sod Chloride 0.9% Inj 1,000 ML IV.CONT SCH (04:13)
[2018-04-07 08:19] LABS: Baso # (Auto) 0.1 th/mm3 (0.0-0.2); Baso % (Auto) 0.3 % (0.0-2.0); Eos # (Auto) 0.1 th/mm3 (0.0-0.4); Eos % (Auto) 0.4 % (0.0-4.0); Hematocrit 40.1 % (39.0-51.0); Hemoglobin 13.2 gm/dL (13.0-17.0); Lymph # (Auto) 1.1 th/mm3 (1.0-4.8); Lymph % (Auto) 6.8 % (9.0-44.0); Mean Corpuscular HGB Conc 32.9 % (32.0-36.0); Mean Corpuscular Hemoglobin 30.5 pg (27.0-34.0); Mean Corpuscular Volume 92.7 fL (80.0-100.0); Mean Platelet Volume 8.7 fL (7.0-11.0); Mono # (Auto) 1.3 th/mm3 (0.0-0.9); Mono % (Auto) 8.2 % (0.0-8.0); Neut # (Auto) 13.3 th/mm3 (1.8-7.7); Neut % (Auto) 84.3 % (16.0-70.0); Platelet Count 205 th/mm3 (150-450); Red Blood Count 4.32 mil/mm3 (4.50-5.90); Red Cell Distribution Width 16.4 % (11.6-17.2); White Blood Count 15.8 th/mm3 (4.0-11.0)
[2018-04-07 08:45] LABS: Anion Gap 7 meq/L (5-15); Blood Urea Nitrogen 23 mg/dL (7-18); Calcium 8.4 mg/dL (8.5-10.1); Carbon Dioxide 28.6 meq/L (21.0-32.0); Chloride 115 meq/L (98-107); Glomerular Filtration Rate Greater Than 89 mL/min (>89); Glucose,Random 79 mg/dL (74-106); Potassium 4.4 meq/L (3.5-5.1); Sodium 151 meq/L (136-145)
[2018-04-07] MEDS: Senna/Docusate Sodium 8.6/50 MG Tablet PO SCH ×2 (08:49→20:55)
[2018-04-07 09:30] LABS: Lymphocytes 3 % (9-44); Monocytes 8 % (0-8)
[2018-04-07 09:31] LABS: Platelet Estimate Normal (Normal); Platelet Morphology Normal (Normal)
--- NOTE | 2018-04-07 09:36 | P.PN ---
Subjective Interval history: Nursing denies any deterioration since last night. Says that the patient is overall nonverbal. CT abdomen was ordered yesterday is being read as findings suggestive of acute cholecystitis. When I speak to the patient himself today he is nonverbal and just goes to sleep. Physical Exam Vital signs: Vital Signs 04/06/18 10:09 04/06/18 10:30 04/06/18 12:14 Temperature 100.1 F H Pulse Rate 79 68 Respiratory Rate 21 16 Blood Pressure 159/70 H 124/68 Pulse Oximetry 97 96 99 04/06/18 15:27 04/06/18 16:00 04/06/18 17:56 Temperature 98.8 F Pulse Rate 70 70 Respiratory Rate 16 20 Blood Pressure 130/77 124/59 L Pulse Oximetry 99 97 99 04/06/18 20:00 04/07/18 00:00 04/07/18 04:00 Temperature 99.1 F 97.7 F 98.8 F Pulse Rate 62 62 60 Respiratory Rate 16 18 19 Blood Pressure 141/58 H 144/70 H 138/65 Pulse Oximetry 97 100 95 04/07/18 08:00 Temperature Pulse Rate Respiratory Rate Blood Pressure Pulse Oximetry 95 Intake & Output 04/06/18 04/07/18 04/07/18 18:59 06:59 18:59 Intake Total 450 / 450 1400 / 1400 Output Total 550 / 550 Balance 450 / 450 850 / 850 Weight 86.9 kg 86.9 kg Intake: IV 450 / 450 1400 / 1400 NS Inj 1,000 ML @ 75 mls/hr IV. 1000 / 1000 CONT .[id number] NAVJOT Rx#:[id number] Azithromycin Inj 500 MG In NS 250 / 250 Inj 250 ML @ 250 mls/hr IV.SIG ONCE ONE Rx#:[id number] Maxipime Inj 1,000 MG In NS Inj 200 / 200 100 ML @ 200 mls/hr IV.SIG Q8H NAVJOT Rx#:[id number] KCl 10 mEq Premix Inj 10 meq In 100 / 100 200 / 200 100 ml @ 100 mls/hr IV.SIG Q1H NAVJOT Rx#:[id number] Oral 0 / 0 Output: Urine 550 / 550 Other: # Incontinent Voids 2 Weight On Admission 86.9 kg Narrative: 2/6 ejection murmur Clear lungs bilaterally, unlabored breathing Abdomen is soft, nontender, nondistended - Urinary Catheter Management Straight Cath placed during this visit: yes Reason for continuing: Not indwelling catheter Insertion date: 04/06/18 Insertion time: 10:30 Results - Labs CBC & Chem 7: 04/07/18 06:58 04/07/18 06:58 Laboratory Results - last 24 hr 04/06/18 04/06/18 04/06/18 10:30 10:30 10:30 WBC 19.1 H RBC 4.70 Hgb 14.0 Hct 43.4 MCV 92.4 MCH 29.8 MCHC 32.2 RDW 16.1 Plt Count 236 MPV 8.9 Prelim Diff (Auto) Neut % (Auto) 85.2 H Lymph % (Auto) 6.6 L [place] % (Auto) 8.0 Eos % (Auto) 0.1 Baso % (Auto) 0.1 Neut # (Auto) 16.3 H Lymph # (Auto) 1.3 [place] # (Auto) 1.5 H Eos # (Auto) 0.0 Baso # (Auto) 0.0 WBC Differential . Seg Neuts % (Manual) Band Neuts % (Manual) Lymphocytes % (Manual) Monocytes % (Manual) Abs Neuts (Manual) Differential Comment Auto diff final Platelet Estimate Platelet Morphology PT 12.7 H INR 1.3 APTT 28.7 Sodium 148 H Potassium 3.3 L Chloride 111 H Carbon Dioxide 29.0 Anion Gap 8 BUN 25 H Creatinine 0.95 Estimated GFR 76 L POC Glucose Random Glucose 108 H Lactic Acid Calcium 8.6 Total Bilirubin 0.6 AST 33 ALT 36 Alkaline Phosphatase 88 Total Creatine Kinase Troponin I Less than 0.02 L Total Protein 7.6 Albumin 2.4 L TSH Urine Color Urine Clarity Urine pH Ur Specific [place] Urine Protein Urine Glucose (UA) Urine Ketones Urine Occult Blood Urine Nitrate Urine Bilirubin Urine Urobilinogen Ur Leukocyte Esterase Urine RBC Urine WBC Urine Mucus Micro UA Comment Ur Microscopic Review Urine Culture Comments 04/06/18 04/06/18 04/06/18 10:30 10:30 10:30 WBC RBC Hgb Hct MCV MCH MCHC RDW Plt Count MPV Prelim Diff (Auto) Neut % (Auto) Lymph % (Auto) [place] % (Auto) Eos % (Auto) Baso % (Auto) Neut # (Auto) Lymph # (Auto) [place] # (Auto) Eos # (Auto) Baso # (Auto) WBC Differential Seg Neuts % (Manual) Band Neuts % (Manual) Lymphocytes % (Manual) Monocytes % (Manual) Abs Neuts (Manual) Differential Comment Platelet Estimate Platelet Morphology PT INR APTT Sodium Potassium Chloride Carbon Dioxide Anion Gap BUN Creatinine Estimated GFR POC Glucose Random Glucose Lactic Acid 1.0 Calcium Total Bilirubin AST ALT Alkaline Phosphatase Total Creatine Kinase Troponin I Total Protein Albumin TSH 0.663 Urine Color Asha Urine Clarity Hazy H Urine pH 5.0 Ur Specific [place] 1.027 Urine Protein 30 H Urine Glucose (UA) Negative Urine Ketones Negative Urine Occult Blood Small H Urine Nitrate Negative Urine Bilirubin Negative Urine Urobilinogen 4 or greater Ur Leukocyte Esterase Negative Urine RBC 2 Urine WBC 2 Urine Mucus Few H Micro UA Comment Cath-culture not ind Ur Microscopic Review Not Reportable Urine Culture Comments Cath-cult not ind 04/06/18 04/06/18 04/07/18 16:55 22:59 06:58 WBC 15.8 H RBC 4.32 L Hgb 13.2 Hct 40.1 MCV 92.7 MCH 30.5 MCHC 32.9 RDW 16.4 Plt Count 205 MPV 8.7 Prelim Diff (Auto) Slide review pending Neut % (Auto) 84.3 H Lymph % (Auto) 6.8 L [place] % (Auto) 8.2 H Eos % (Auto) 0.4 Baso % (Auto) 0.3 Neut # (Auto) 13.3 H Lymph # (Auto) 1.1 [place] # (Auto) 1.3 H Eos # (Auto) 0.1 Baso # (Auto) 0.1 WBC Differential Manual diff final Seg Neuts % (Manual) 76 H Band Neuts % (Manual) 13 H Lymphocytes % (Manual) 3 L Monocytes % (Manual) 8 Abs Neuts (Manual) 14.1 H Differential Comment . Platelet Estimate Normal Platelet Morphology Normal PT INR APTT Sodium Potassium Chloride Carbon Dioxide Anion Gap BUN Creatinine Estimated GFR POC Glucose Random Glucose Lactic Acid Calcium Total Bilirubin AST ALT Alkaline Phosphatase Total Creatine Kinase 16 L 18 L Troponin I Less than 0.02 L Less than 0.02 L Total Protein Albumin TSH Urine Color Urine Clarity Urine pH Ur Specific [place] Urine Protein Urine Glucose (UA) Urine Ketones Urine Occult Blood Urine Nitrate Urine Bilirubin Urine Urobilinogen Ur Leukocyte Esterase Urine RBC Urine WBC Urine Mucus Micro UA Comment Ur Microscopic Review Urine Culture Comments 04/07/18 04/07/18 06:58 08:52 WBC RBC Hgb Hct MCV MCH MCHC RDW Plt Count MPV Prelim Diff (Auto) Neut % (Auto) Lymph % (Auto) [place] % (Auto) Eos % (Auto) Baso % (Auto) Neut # (Auto) Lymph # (Auto) [place] # (Auto) Eos # (Auto) Baso # (Auto) WBC Differential Seg Neuts % (Manual) Band Neuts % (Manual) Lymphocytes % (Manual) Monocytes % (Manual) Abs Neuts (Manual) Differential Comment Platelet Estimate Platelet Morphology PT INR APTT Sodium 151 H Potassium 4.4 D Chloride 115 H Carbon Dioxide 28.6 Anion Gap 7 BUN 23 H Creatinine 0.77 Estimated GFR Greater than 89 POC Glucose 89 Random Glucose 79 Lactic Acid Calcium 8.4 L Total Bilirubin AST ALT Alkaline Phosphatase Total Creatine Kinase Troponin I Total Protein Albumin TSH Urine Color Urine Clarity Urine pH Ur Specific [place] Urine Protein Urine Glucose (UA) Urine Ketones Urine Occult Blood Urine Nitrate Urine Bilirubin Urine Urobilinogen Ur Leukocyte Esterase Urine RBC Urine WBC Urine Mucus Micro UA Comment Ur Microscopic Review Urine Culture Comments - Imaging Impressions Abdomen/Pelvis CT 04/06/18 00:00 CONCLUSION: 1. Distended gallbladder with significant inflammatory process surrounding it which extends to the hepatic flexure and involves parts of the colon wall highly concerning for acute cholecystitis. 2. Fecal impaction. 3. Probable chronic initial process both lung bases. Chest X-Ray 04/06/18 10:05 CONCLUSION: No appreciable change since the prior examination without focal consolidation. Head CT 04/06/18 10:05 CONCLUSION: 1. Prominent but stable cerebral atrophy. 2. No acute intracranial abnormality or significant interval change. . Assessment and Plan - Plan Acute on chronic metabolic encephalopathy almost at baseline. Hypernatremia Dementia -Stopping normal saline, starting half-normal saline, BMP checked in a.m. Leukocytosis -Improving, no source of infection found apart from possible cholecystitis although clinically he does not penetrate the symptoms Continue antibiotics, await blood cultures. At this time patient is afebrile Possible cholecystitis -obtain gallbladder ultrasound Hyperlipidemia - continue Home medicines will get Speech therapy evaluation D/w case Dr. Sarah, adding on flagyl Discharge [phone] Phyllis WADE, wants for surgeon to call with his conclusive assessment
[2018-04-07] MEDS ORDERED: Azithromycin Inj 500 MG in Sodium Chlor 0.9% Inj 250 ML IV.SIG SCH (12:00)
--- NOTE | 2018-04-07 12:03 | US ---
EXAM DATE: 04/07/2018 11:49 AM EDT AGE/SEX: 77 years / Male INDICATIONS: Cholecystitis. CLINICAL DATA: This is the patient's subsequent encounter. Patient reports that signs and symptoms h ave been present for 1 day and indicates a pain score of Nonresponsive. MEDICAL/SURGICAL HISTORY: . Coronary artery disease. Dementia. Hypertension. Hyperlipidemia. Non-responsive. [place] [facility] [place] 04/[place]/2018. . MEASUREMENTS: Liver:__ 15.9 cm. Common Bile Duct:__ 5mm. FINDINGS: Liver: Visualized portions of liver appear normal. Left lobe not well seen due to overlying bowel ga s. Portal Vein: Hepatopedal flow seen in portal vein. Common Duct: No intraluminal mass or stone visualized. Gallbladder: Wall thickening of the gallbladder. Contains prominent sludge and scattered stones. The re is pericholecystic fluid. Pancreas: The visualized portions are within normal limits Right Kidney: Normal echotexture and cortical thickness. No mass or hydronephrosis. Other: There is a cystic structure in Morison's pouch. CONCLUSION: 1. Gallbladder wall thickening with cholelithiasis, sludge and pericholecystic fluid concerning for acute cholecystitis. 2. Nonvisualization of part of the left lobe of the liver. 3. 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 Electronically signed by: Joe Sultana MD 04/07/2018 12:01 PM EDT
[2018-04-07] MEDS ORDERED: Sodium Chloride 0.45 % Inj 1,000 ML IV.CONT SCH (15:30)
[2018-04-07] MEDS: Enoxaparin Inj 40 MG/0.4 ML Syringe SQ SCH (16:02)
--- NOTE | 2018-04-07 17:22 | ECG ---
Date Performed: 04/06/2018 Time Performed: 10:20:30 PTAGE: 77 years EKG: Sinus rhythm RIGHT BUNDLE BRANCH BLOCK ABNORMAL ECG PREVIOUS TRACING : 08/21/2016 22.09 DOCTOR: Jose Campbell Interpretating Date/Time 04/07/2018 17:20:01
--- NOTE | 2018-04-07 20:34 | P.CONGS ---
HPI Gen Surgery Consult Note Consult date: 04/07/18 Narrative: 76 yo M with history of dementia nonverbal who resides at [facility] [place] who was admitted for being less responsive than usual and noted to have low -grade temperature as well as leukocytosis. Etiology of possible infection was unknown however he had CT scan of the abdomen and pelvis which appears to show acute cholecystitis. This was followed with ultrasound which also confirms likely acute cholecystitis. The patient is unable to give me any history and is nonverbal. I did speak on the phone with the patient's power of dance instructor Phyllis who states that he has been having diarrhea recently. Review of Systems unobtainable due to mental status PMFSH - History History Provided By: Medical Record - Medical History Medical History: Medical History (Last Reviewed 04/07/18 @ 11:05 by Bianca Ryan) CAD (coronary artery disease) Dementia HTN (hypertension) High cholesterol - Tobacco History Smoking Status: Unknown if ever smoked - Alcohol History How Often Do You Have a Drink Containing Alcohol: Never - Substance Use History Substance History: No History of Abuse - Travel History Recent Travel in the [place] Within the Last 8 Weeks: No Recent Travel Out of the Country Within the Last 8 Weeks: No - Immunization History Tetanus Immunization: Unsure Medications and Allergies Active Medications: Active Medications Acetaminophen (Tylenol) 650 mg PO Q4H PRN PRN Reason: Temp > 100.4 Al Hydroxide/Mg Hydroxide (Milk Of Vu Liq) 30 ml PO Q12H PRN PRN Reason: Mild Constipation Bisacodyl (Dulcolax Supp) 10 mg RECTAL DAILY PRN PRN Reason: SEVERE CONSITIPATION Enoxaparin Sodium (Lovenox Inj) 40 mg SQ Q24H NAVJOT Last Admin: 04/07/18 16:02 Dose: 40 mg Azithromycin 500 mg/ Sodium (Chloride) 250 mls @ 250 mls/hr IV.SIG Q24H NAVJOT Last Infusion: 04/07/18 14:15 Dose: Infused Cefepime HCl 1,000 mg/ Sodium (Chloride) 100 mls @ 200 mls/hr IV.SIG Q8H NAVJOT Last Infusion: 04/07/18 14:14 Dose: Infused Sodium Chloride (1/2 Normal Saline Inj) 1,000 mls @ 42 mls/hr IV.CONT .[id number] NAVJOT Last Admin: 04/07/18 16:02 Dose: 42 mls/hr Metronidazole/Sodium Chloride (Flagyl 500 Mg Inj) 100 mls @ 100 mls/hr IV.SIG Q8H [facility] Last Admin: 04/07/18 18:30 Dose: 100 mls/hr Lactulose (Lactulose Liq) 30 ml PO DAILY PRN PRN Reason: SEVERE CONSITIPATION Ondansetron HCl (Zofran Inj) 4 mg IV.PUSH Q4H PRN PRN Reason: NAUSEA OR VOMITING Senna/Docusate Sodium (Aimee-Colace) 1 tab PO BID [facility] Last Admin: 04/07/18 08:49 Dose: Not Given Sennosides (Senokot) 17.2 mg PO Q12H PRN PRN Reason: Moderate Constipation Sodium Chloride (Ns Flush) 2 ml IV.FLUSH PRN PRN PRN Reason: FLUSH AFTER USING IV ACCESS Allergies Allergy/AdvReac Type Severity Reaction Status Date / Time No Known Allergies Allergy Uncoded 08/21/16 10:07 Home Medications Medication Instructions Recorded Confirmed Type dextromethorphan-quinidine 1 cap PO Q12H 04/06/18 04/06/18 History [Nuedexta] divalproex 250 mg PO TID 04/06/18 04/06/18 History sennosides [senna] 2 tab PO DAILY 04/06/18 04/06/18 History simvastatin 40 mg PO QPM 04/06/18 04/06/18 History Exam Vital signs: Vital Signs 04/07/18 00:00 04/07/18 04:00 04/07/18 08:00 Temperature 97.7 F 98.8 F 99.1 F Pulse Rate 62 60 55 L Respiratory Rate 18 19 16 Blood Pressure 144/70 H 138/65 126/78 Pulse Oximetry 100 95 99 04/07/18 09:00 04/07/18 12:00 04/07/18 16:00 Temperature 97.4 F L 98.1 F Pulse Rate 56 L 55 L 56 L Respiratory Rate 16 Blood Pressure 109/61 129/58 L Pulse Oximetry 99 99 Intake & Output 04/07/18 04/07/18 04/08/18 06:59 18:59 06:59 Intake Total 1400 / 1400 850 / 850 Output Total 550 / 550 Balance 850 / 850 850 / 850 Weight 86.9 kg Intake: IV 1400 / 1400 850 / 850 NS Inj 1,000 ML @ 75 mls/hr IV. 1000 / 1000 500 / 500 CONT .[id number] NAVJOT Rx#:[id number] Azithromycin Inj 500 MG In NS 250 / 250 Inj 250 ML @ 250 mls/hr IV.SIG Q24H NAVJOT Rx#:[id number] Maxipime Inj 1,000 MG In NS Inj 200 / 200 100 / 100 100 ML @ 200 mls/hr IV.SIG Q8H NAVJOT Rx#:[id number] KCl 10 mEq Premix Inj 10 meq In 200 / 200 100 ml @ 100 mls/hr IV.SIG Q1H NAVJOT Rx#:[id number] Oral 0 / 0 Output: Urine 550 / 550 Other: # Incontinent Voids 2 4 Narrative: GENERAL: Elderly, frail, nonverbal HEAD: Normocephalic. Atraumatic. EYES: Pupils equal round and reactive to light bilaterally. No scleral icterus. NECK: Trachea midline. CHEST: Nonlabored breathing. No respiratory distress. CARDIOVASCULAR: Regular rate and rhythm. ABDOMEN: Soft, mild distention. He does not seem to be responding much although he is making eye contact. He does not indicate any tenderness. EXTREMITIES: No cyanosis or edema. SKIN: Warm, dry, nonjaundiced. Results - Labs 04/07/18 06:58 04/07/18 06:58 Abnormal lab results 04/06/18 04/07/18 04/07/18 Range/Units 22:59 06:58 06:58 WBC 15.8 H (4.0-11.0) th/mm3 RBC 4.32 L (4.50-5.90) mil/mm3 Neut % (Auto) 84.3 H (16.0-70.0) % Lymph % (Auto) 6.8 L (9.0-44.0) % [place] % (Auto) 8.2 H (0.0-8.0) % Neut # (Auto) 13.3 H (1.8-7.7) th/mm3 [place] # (Auto) 1.3 H (0.0-0.9) th/mm3 Seg Neuts % (Manual) 76 H (16-70) % Band Neuts % (Manual) 13 H (0-6) % Lymphocytes % (Manual) 3 L (9-44) % Abs Neuts (Manual) 14.1 H (1.8-7.7) th/mm3 Sodium 151 H (136-145) meq/L Chloride 115 H (98-107) meq/L BUN 23 H (7-18) mg/dL Calcium 8.4 L (8.5-10.1) mg/dL Total Creatine Kinase 18 L (39-308) U/L Troponin I Less than 0.02 L (0.02-0.05) ng/mL Diabetes panel 04/07/18 Range/Units 06:58 Sodium 151 H (136-145) meq/L Potassium 4.4 D (3.5-5.1) meq/L Chloride 115 H (98-107) meq/L Carbon Dioxide 28.6 (21.0-32.0) meq/L BUN 23 H (7-18) mg/dL Creatinine 0.77 (0.60-1.30) mg/dL Calcium 8.4 L (8.5-10.1) mg/dL Calcium panel 04/07/18 Range/Units 06:58 Calcium 8.4 L (8.5-10.1) mg/dL Pituitary panel 04/07/18 Range/Units 06:58 Sodium 151 H (136-145) meq/L Potassium 4.4 D (3.5-5.1) meq/L Chloride 115 H (98-107) meq/L Carbon Dioxide 28.6 (21.0-32.0) meq/L BUN 23 H (7-18) mg/dL Creatinine 0.77 (0.60-1.30) mg/dL Calcium 8.4 L (8.5-10.1) mg/dL Adrenal panel 04/07/18 Range/Units 06:58 Sodium 151 H (136-145) meq/L Potassium 4.4 D (3.5-5.1) meq/L Chloride 115 H (98-107) meq/L Carbon Dioxide 28.6 (21.0-32.0) meq/L BUN 23 H (7-18) mg/dL Creatinine 0.77 (0.60-1.30) mg/dL Calcium 8.4 L (8.5-10.1) mg/dL All other labs normal. - Imaging CT scan - abdomen: report reviewed, image reviewed CT scan - pelvis: report reviewed, image reviewed US - abdomen: report reviewed Assessment and Plan - Assessment (1) Acute cholecystitis Code(s): K81.0 - Acute cholecystitis Status: Acute - Plan Based on imaging patient appears to have acute cholecystitis which would explain his mild elevated temps and leukocytosis. I would not recommend surgery in his situation. Options include cholecystostomy tube placement vs attempted treatment with antibiotics. I discussed this with the patient's POA Phyllis and she would like to try to avoid invasive procedures at this time which I think is very reasonable. Recommend continue IV antibiotics for now.
[2018-04-08 05:38] LABS: Baso % (Auto) 0.1 % (0.0-2.0); Eos # (Auto) 0.1 th/mm3 (0.0-0.4); Eos % (Auto) 0.9 % (0.0-4.0); Hematocrit 39.6 % (39.0-51.0); Hemoglobin 12.8 gm/dL (13.0-17.0); Lymph # (Auto) 1.3 th/mm3 (1.0-4.8); Lymph % (Auto) 8.4 % (9.0-44.0); Mean Corpuscular HGB Conc 32.3 % (32.0-36.0); Mean Corpuscular Volume 92.9 fL (80.0-100.0); Mean Platelet Volume 8.5 fL (7.0-11.0); Mono # (Auto) 1.3 th/mm3 (0.0-0.9); Mono % (Auto) 8.9 % (0.0-8.0); Neut # (Auto) 12.2 th/mm3 (1.8-7.7); Neut % (Auto) 81.7 % (16.0-70.0); Platelet Count 222 th/mm3 (150-450); Red Blood Count 4.26 mil/mm3 (4.50-5.90); Red Cell Distribution Width 16.5 % (11.6-17.2); White Blood Count 14.9 th/mm3 (4.0-11.0)
[2018-04-08] MEDS: Senna/Docusate Sodium 8.6/50 MG Tablet PO SCH ×2 (09:58→20:59)
--- NOTE | 2018-04-08 10:41 | P.PN ---
Subjective Interval history: Nursing reports that the patient does not cooperate well enough for speech therapy. Otherwise no deterioration overnight. Physical Exam Vital signs: Vital Signs 04/07/18 12:00 04/07/18 16:00 04/07/18 19:47 Temperature 97.4 F L 98.1 F Pulse Rate 55 L 56 L 53 L Respiratory Rate 16 Blood Pressure 109/61 129/58 L Pulse Oximetry 99 99 04/07/18 20:00 04/07/18 23:44 04/08/18 00:00 Temperature 97.6 F 97.9 F Pulse Rate 54 L 55 L 55 L Respiratory Rate 20 18 Blood Pressure 103/52 L 136/61 Pulse Oximetry 97 95 04/08/18 03:45 04/08/18 04:00 04/08/18 08:00 Temperature 97.8 F 99.0 F Pulse Rate 56 L 55 L 54 L Respiratory Rate 18 18 Blood Pressure 147/65 H 121/63 Pulse Oximetry 91 L 97 Intake & Output 04/07/18 04/08/18 04/08/18 18:59 06:59 18:59 Intake Total 850 / 850 400 / 400 Balance 850 / 850 400 / 400 Weight 86.3 kg Intake: IV 850 / 850 400 / 400 NS Inj 1,000 ML @ 75 mls/hr IV. 500 / 500 CONT .[id number] NAVJOT Rx#:[id number] Azithromycin Inj 500 MG In NS 250 / 250 Inj 250 ML @ 250 mls/hr IV.SIG Q24H [facility]OT Rx#:[id number] Maxipime Inj 1,000 MG In NS Inj 100 / 100 200 / 200 100 ML @ 200 mls/hr IV.SIG Q8H [facility]JOT Rx#:[id number] Flagyl 500 MG Inj 100 ML @ 100 200 / 200 mls/hr IV.SIG Q8H NAVJOT Rx#: [id number] Oral 0 / 0 Other: # Incontinent Voids 4 4 # Incontinent Bowel Movements 4 Narrative: 3/6 ejection murmur Does not maintain eye contact but has his eyes open, partially sitting up in bed and reclined position Clear lungs bilaterally, unlabored breathing Does not follow motor commands, Flat affect - Urinary Catheter Management Straight Cath placed during this visit: yes Reason for continuing: Not indwelling catheter Insertion date: 04/06/18 Insertion time: 10:30 Results - Labs CBC & Chem 7: 04/09/18 03:33 04/09/18 03:33 Laboratory Results - last 24 hr 04/08/18 04:50 WBC 14.9 H RBC 4.26 L Hgb 12.8 L Hct 39.6 MCV 92.9 MCH 30.0 MCHC 32.3 RDW 16.5 Plt Count 222 MPV 8.5 Neut % (Auto) 81.7 H Lymph % (Auto) 8.4 L [place] % (Auto) 8.9 H Eos % (Auto) 0.9 Baso % (Auto) 0.1 Neut # (Auto) 12.2 H Lymph # (Auto) 1.3 [place] # (Auto) 1.3 H Eos # (Auto) 0.1 Baso # (Auto) 0.0 WBC Differential . Differential Comment Auto diff final Microbiology 04/06/18 10:30 Blood - Peripheral Aerobic Blood Culture - Preliminary No growth in 1 day 04/06/18 10:30 Blood - Peripheral Anaerobic Blood Culture - Preliminary No growth in 1 day 04/06/18 10:30 Blood - Peripheral Aerobic Blood Culture - Preliminary No growth in 1 day 04/06/18 10:30 Blood - Peripheral Anaerobic Blood Culture - Preliminary No growth in 1 day - Imaging Impressions Gallbladder Ultrasound 04/07/18 00:00 CONCLUSION: 1. Gallbladder wall thickening with cholelithiasis, sludge and pericholecystic fluid concerning for acute cholecystitis. 2. Nonvisualization of part of the left lobe of the liver. 3. 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 Assessment and Plan - Plan Acute on chronic metabolic encephalopathy almost at baseline. Dementia -Unclear cause behind acute worsening apart from possible cholecystitis which is addressed below - N.p.o. per speech will contact POA and see if they are okay with NG tube insertion, will consider palliative care consult for goals of care - POA approved NG insertion, will order as well as tube feeds - b12 wnl, tsh wnl Hypernatremia -Still worsening hypernatremia despite half-normal saline, will now switch over to D5 with KCl, consulting nephrology - TSH is within normal limits - urine sodium and osmols ordered Leukocytosis -Very slow improvement, no definitive clinically identifiable source of infection; only imaging findings indicative of possible acute cholecystitis General surgery following along, in conjunction with family is proceeding with conservative antibiotic management at this time Continue antibiotics, awaiting blood cultures. At this time patient is afebrile. No fever recurrence, stopping azithromycin and cefepime, continue Flagyl and add on Levaquin Hyperlipidemia - continue Home medicines will get Speech therapy evaluation Discharge [phone] Phyllis WADE, agrees for NG tube placement and sedation if necessary
[2018-04-08 11:08] LABS: Anion Gap 8 meq/L (5-15); Blood Urea Nitrogen 19 mg/dL (7-18); Calcium 8.4 mg/dL (8.5-10.1); Carbon Dioxide 28.8 meq/L (21.0-32.0); Chloride 115 meq/L (98-107); Glomerular Filtration Rate Greater Than 89 mL/min (>89); Glucose,Random 97 mg/dL (74-106); Potassium 3.3 meq/L (3.5-5.1); Sodium 152 meq/L (136-145)
[2018-04-08] MEDS: Potassium Chloride Inj 10 MEQ in Dextrose 5% in Water Inj 1,000 ML IV.CONT SCH ×2 (16:32)
[2018-04-08] MEDS: Enoxaparin Inj 40 MG/0.4 ML Syringe SQ SCH (16:32)
--- NOTE | 2018-04-08 18:56 | XR ---
EXAM DATE: 04/08/2018 6:37 PM EDT AGE/SEX: 77 years / Male INDICATIONS: NG tube placement confirmation. CLINICAL DATA: This is the patient's subsequent encounter. Patient reports that signs and symptoms h ave been present for 1 day and indicates a pain score of Nonresponsive. MEDICAL/SURGICAL HISTORY: . Coronary artery disease. Dementia. Hypertension. Hyperlipidemia. N on-responsive. COMPARISON: [facility], CHEST 1V SINGLE AP, 04/06/2018. . FINDINGS: A nasogastric tube has been inserted. Its distal tip is in the cardia of the stomach. The side-port i s in the distal esophagus. Lungs are hypoaerated. Interstitial prominence is again noted. There is no evidence of significant co nsolidation CONCLUSION: Interval placement of nasogastric tube with its tip in the cardia of the stomach and its side port wi thin the distal esophagus Hypoaerated lungs with bibasilar atelectasis. Electronically signed by: Mike Khan MD 04/08/2018 6:55 PM EDT
--- NOTE | 2018-04-08 19:56 | MR ---
EXAM DATE: 04/08/2018 7:26 PM EDT AGE/SEX: 77 years / Male INDICATIONS: CVA. CLINICAL DATA: This is the patient's initial encounter. Patient reports that signs and symptoms have been present for 1 day and indicates a pain score of 0/10. MEDICAL/SURGICAL HISTORY: Cardiovascular disease. Hypertension. Hypercholesterolemia. . Catar act. [place] [facility] [place]. . TECHNIQUE: Multiplanar, multisequence examination of the brain was performed without contrast. FINDINGS: Cerebrum: Severe atrophy with enlargement of the CSF spaces and marked ventriculomegaly is again not ed. There are no characteristic findings of acute infarct, hemorrhage or edema. White Matter: Severe loss of volume is noted. No significant signal abnormalities are seen in the wh ite matter. Posterior Fossa: The cerebellum and brainstem are intact. The 4th ventricle is midline. The cerebel lopontine angle is unremarkable. The cerebellar tonsils are normal in position. Diffusion Imaging: No focal areas of restricted diffusion are seen. No evidence of acute infarction . Extracranial: The visualized portions of the orbits and paranasal sinuses are unremarkable. CONCLUSION: 1. Severe atrophy with enlargement of the CSF spaces. 2. No evidence of acute infarct, hemorrhage, mass or edema. Electronically signed by: Mike Khan MD 04/08/2018 7:54 PM EDT
--- NOTE | 2018-04-08 21:46 | XR ---
EXAM DATE: 04/08/2018 9:34 PM EDT AGE/SEX: 77 years / Male INDICATIONS: Evaluate NG tube placement CLINICAL DATA: This is the patient's subsequent encounter. Patient reports that signs and symptoms h ave been present for 2 days and indicates a pain score of Nonresponsive. MEDICAL/SURGICAL HISTORY: . Coronary artery disease. Dementia. Hypertension. Hyperlipidemia. Non-responsive. COMPARISON: [facility], CHEST 1V SINGLE AP, 04/08/2018. . FINDINGS: Nasogastric tube is again identified with its tip in the cardia of the stomach and the side port in d istal esophagus. Lungs are hypoaerated with scattered airspace disease. CONCLUSION: No change in nasogastric tube position with the side port remaining in the distal esophagus. Electronically signed by: Mike Khan MD 04/08/2018 9:45 PM EDT
--- NOTE | 2018-04-09 02:59 | XR ---
EXAM DATE: 04/09/2018 2:54 AM EDT AGE/SEX: 77 years / Male INDICATIONS: Advancement of nasogastric tube. CLINICAL DATA: This is the patient's subsequent encounter. Patient reports that signs and symptoms h ave been present for 3 days and indicates a pain score of Nonresponsive. MEDICAL/SURGICAL HISTORY: . Coronary artery disease. Dementia. Hypertension. Hyperlipidemia. Non-responsive. [place] [facility] [place]. . FINDINGS: Mild patchy parenchymal opacities are again noted. No large effusion. No pneumothorax. Heart size sta ble, within normal limits. Nasogastric tube is present. Tip is in the upper stomach, sidehole near the GE junction. CONCLUSION: 1. Patchy mild bilateral parenchymal opacities not significantly changed. 2. Nasogastric tube tip is in the upper stomach. The sidehole is near the GE junction. Electronically signed by: Ralf Bruno MD 04/09/2018 2:58 AM EDT
[2018-04-09 05:12] LABS: Baso # (Auto) 0.1 th/mm3 (0.0-0.2); Baso % (Auto) 0.5 % (0.0-2.0); Eos # (Auto) 0.1 th/mm3 (0.0-0.4); Eos % (Auto) 1.1 % (0.0-4.0); Hematocrit 39.7 % (39.0-51.0); Hemoglobin 13.2 gm/dL (13.0-17.0); Lymph # (Auto) 1.4 th/mm3 (1.0-4.8); Lymph % (Auto) 10.6 % (9.0-44.0); Mean Corpuscular HGB Conc 33.1 % (32.0-36.0); Mean Corpuscular Hemoglobin 30.2 pg (27.0-34.0); Mean Platelet Volume 8.5 fL (7.0-11.0); Mono # (Auto) 1.3 th/mm3 (0.0-0.9); Mono % (Auto) 10.3 % (0.0-8.0); Neut # (Auto) 10.1 th/mm3 (1.8-7.7); Neut % (Auto) 77.5 % (16.0-70.0); Platelet Count 246 th/mm3 (150-450); Red Blood Count 4.36 mil/mm3 (4.50-5.90)
[2018-04-09 05:52] LABS: Anion Gap 9 meq/L (5-15); Blood Urea Nitrogen 15 mg/dL (7-18); Calcium 8.4 mg/dL (8.5-10.1); Carbon Dioxide 29.9 meq/L (21.0-32.0); Chloride 114 meq/L (98-107); Glomerular Filtration Rate Greater Than 89 mL/min (>89); Glucose,Random 100 mg/dL (74-106); Sodium 153 meq/L (136-145)
[2018-04-09 06:19] LABS: Potassium 2.9 meq/L (3.5-5.1)
[2018-04-09] MEDS: Potassium Chlor 20 mEq Premix 20 MEQ/100 ML PIGGYBACK IV.SIG SCH ×2 (07:15→09:26)
[2018-04-09] MEDS: Senna/Docusate Sodium 8.6/50 MG Tablet PO SCH ×2 (09:27→21:36)
--- NOTE | 2018-04-09 10:32 | P.PN ---
Subjective Interval history: Nursing denies any deterioration since last night. Patient was able to comply for MRI yesterday. His hyponatremia continues to worsen despite changing fluids to D5. Physical Exam Vital signs: Vital Signs 04/08/18 10:44 04/08/18 12:00 04/08/18 16:00 Temperature 97.8 F 97.3 F L Pulse Rate 63 60 Respiratory Rate 18 18 Blood Pressure 121/71 134/68 Pulse Oximetry 97 97 97 04/08/18 19:00 04/08/18 20:00 04/09/18 00:00 Temperature 98.0 F 98.4 F Pulse Rate 58 L 56 L 59 L Respiratory Rate 18 18 Blood Pressure 148/67 H 158/68 H Pulse Oximetry 100 98 04/09/18 04:00 04/09/18 07:56 04/09/18 08:00 Temperature 98.4 F 98 F Pulse Rate 60 57 L Respiratory Rate 18 20 Blood Pressure 156/69 H 112/58 L Pulse Oximetry 99 99 98 Intake & Output 04/08/18 04/09/18 04/09/18 18:59 06:59 18:59 Intake Total 1000 / 1000 200 / 200 100 / 100 Output Total 3 / 3 Balance 1000 / 1000 197 / 197 100 / 100 Weight 85.7 kg Intake: IV 1000 / 1000 200 / 200 100 / 100 1/2 Normal Saline Inj 1,000 ML 750 / 750 @ 42 mls/hr IV.CONT .[id number] NAVJOT Rx#:[id number] Levaquin 750 mg Premix Inj 150 150 / 150 ML @ 100 mls/hr IV.SIG Q24H NAVJOT Rx#:[id number] KCl 20 mEq Premix Inj 20 meq In 100 / 100 100 ml @ 50 mls/hr IV.SIG Q2H NAVJOT Rx#:[id number] Flagyl 500 MG Inj 100 ML @ 100 100 / 100 200 / 200 mls/hr IV.SIG Q8H NAVJOT Rx#: [id number] Oral 0 / 0 Output: Urine 3 / 3 Other: # Incontinent Bowel Movements 0 Narrative: Appears to be awake with eyes open but does not maintain eye contact Lying in bed in a reclining position Clear lungs bilaterally, unlabored breathing - Urinary Catheter Management Straight Cath placed during this visit: yes Reason for continuing: Not indwelling catheter Insertion date: 04/06/18 Insertion time: 10:30 Results - Labs CBC & Chem 7: 04/09/18 03:33 04/09/18 03:33 Laboratory Results - last 24 hr 04/08/18 04/08/18 04/08/18 10:20 10:20 15:00 WBC RBC Hgb Hct MCV MCH MCHC RDW Plt Count MPV Neut % (Auto) Lymph % (Auto) [place] % (Auto) Eos % (Auto) Baso % (Auto) Neut # (Auto) Lymph # (Auto) [place] # (Auto) Eos # (Auto) Baso # (Auto) WBC Differential Differential Comment Sodium 152 H Potassium 3.3 L D Chloride 115 H Carbon Dioxide 28.8 Anion Gap 8 BUN 19 H Creatinine 0.78 Estimated GFR Greater than 89 Random Glucose 97 Calcium 8.4 L Vitamin B12 395 Urine Osmolality 892 Ur Random Sodium 04/08/18 04/09/18 04/09/18 15:00 03:33 03:33 WBC 13.0 H RBC 4.36 L Hgb 13.2 Hct 39.7 MCV 91.0 MCH 30.2 MCHC 33.1 RDW 16.0 Plt Count 246 MPV 8.5 Neut % (Auto) 77.5 H Lymph % (Auto) 10.6 [place] % (Auto) 10.3 H Eos % (Auto) 1.1 Baso % (Auto) 0.5 Neut # (Auto) 10.1 H Lymph # (Auto) 1.4 [place] # (Auto) 1.3 H Eos # (Auto) 0.1 Baso # (Auto) 0.1 WBC Differential . Differential Comment Auto diff final Sodium 153 H Potassium 2.9 L* Chloride 114 H Carbon Dioxide 29.9 Anion Gap 9 BUN 15 Creatinine 0.74 Estimated GFR Greater than 89 Random Glucose 100 Calcium 8.4 L Vitamin B12 Urine Osmolality Ur Random Sodium 73 Microbiology 04/06/18 10:30 Blood - Peripheral Aerobic Blood Culture - Preliminary No growth in 2 days 04/06/18 10:30 Blood - Peripheral Anaerobic Blood Culture - Preliminary No growth in 2 days 04/06/18 10:30 Blood - Peripheral Aerobic Blood Culture - Preliminary No growth in 2 days 04/06/18 10:30 Blood - Peripheral Anaerobic Blood Culture - Preliminary No growth in 2 days - Imaging Impressions Head MRI 04/08/18 00:00 CONCLUSION: 1. Severe atrophy with enlargement of the CSF spaces. 2. No evidence of acute infarct, hemorrhage, mass or edema. Chest X-Ray 04/08/18 17:51 CONCLUSION: Interval placement of nasogastric tube with its tip in the cardia of the stomach and its side port within the distal esophagus Hypoaerated lungs with bibasilar atelectasis. Chest X-Ray 04/08/18 21:30 CONCLUSION: No change in nasogastric tube position with the side port remaining in the distal esophagus. Chest X-Ray 04/09/18 00:00 CONCLUSION: 1. Patchy mild bilateral parenchymal opacities not significantly changed. 2. Nasogastric tube tip is in the upper stomach. The sidehole is near the GE junction. Assessment and Plan - Plan Acute on chronic metabolic encephalopathy almost at baseline. Dementia -Unclear cause behind acute worsening apart from possible cholecystitis which is addressed below -NG tube in place, will start tube feedings once confirmed the placement - b12 wnl, tsh wnl -MRI head is unremarkable for any acute findings. Noted to have stable ventriculomegaly Hypernatremia -Still worsening hypernatremia despite D5 infusion, awaiting nephrology input - TSH is within normal limits - urine sodium and osmols ordered Leukocytosis -Very slow improvement, no definitive clinically identifiable source of infection; only imaging findings indicative of possible acute cholecystitis General surgery following along, in conjunction with family is proceeding with conservative antibiotic management at this time Continue Flagyl and Levaquin Hyperlipidemia - continue Home medicines Discharge [phone] Phyllis WDAE, agrees for NG tube placement and sedation if necessary
--- NOTE | 2018-04-09 10:55 | P.DIET ---
Nutritional Evaluation Type of nutrition evaluation: initial Nutrition consult regarding: Tube Feeding (MDC for Tube Feeding) Subjective Subjective Comments: Pt is nonverbal. ST eval recommending NPO. Per review of EMR, pt was on pureed foods w/ thickened liquids at his residential. Unsure what consistency his liquids were. Objective - Diagnosis Altered Mental Status, Sepsis - Objective % IBW: 99 (XMC=781#) Body Weight Used for Calculations: Actual (85.7kg) Energy Needs - Lower Range (kCal/kg): 25 Energy Needs - Upper Range (kCal/kg): 30 Lower Limit kCal/kg (kCals): 2,143 Upper Limit kCal/kg (kCals): 2,571 Lower Limit Protein Factor (Grams per Kg): 1.0 Upper Limit Protein Factor (Grams per Kg): 1.3 Lower Protein Needs (Protein): 86 Upper Protein Needs (Protein): 111 Fluid Factor (ml/kg): 28 Estimated Fluid Needs (ml): 2,400 Dietitian Reviewed in Medical Record: Current diet, Curent medications, Intake & Output, Labs, Medical history, Tube feeding Diet Order: TF Only Speech Therapy Recommendations: Yes (NPO) Objective Comments: Labs: Na 153, K 2.9 (-) BM recorded NGT inserted 04/08 Assessment Assessment: Pt admitted for AMS and sepsis. He's a residential resident and per review of EMR was previously on pureed food and some kind of thickened liquids. ST evaluation is recommending NPO. NGT placed yesterday and TF ordered placed. Recommend Jevity 1.5 @ 60mls/hr with 250ml water flushes Q 6hrs. This will provide 2160kcals, 92g PRO, and 1094mls fluid (2094mls total w/ flushes). RD following. Recommendations: 1. Recommend Jevity 1.5 @ 60mls/hr. 2. Recommend 250ml water flushes Q 6hrs for hydration needs. Dietitian to Monitor: Lab values, Electrolytes, Intake & Output, Tube feeding tolerance, Weight change, Swallow recommendations, Medical course
--- NOTE | 2018-04-09 11:15 | P.CONPAL ---
Consult Service: Palliative Care Requesting Physician: Apolinar Trotter Reason for Consult: a. To assist with evaluation and management of symptoms including:dysphagia, at risk for pain, debility b. To assist medical decision maker(s) with: better understanding of current medical conditions; weighing benefits/burdens of medical treatment options; making medical treatment decisions. Primary Care Provider: Jose Hargrove History of Present Illness History of Present Illness: Mr. Watkins is a 77 years old with a past medical history of dementia, coronary disease, hypertension, hyperlipidemia and chronic constipation. Patient was brought to the emergency room via EMS on 04/06/18 from [facility] for further evaluation of low-grade temp, low oxygen saturation and less responsiveness. Patient was placed on O2 2 L nasal cannula. ER course: * Vital signs: Temperature 100.1F, pulse 79, respiration rate 21, BP 159/70, O2 saturation 97% on O2 2 L nasal cannula. * Laboratory workup reveals sodium 148, potassium 3.3, BUN/creatinine 25/0.89, random glucose 108, lactic acid 1.0, AST 33, ALT 36, troponin less than 0.02, total protein 7.6, albumin 2.4, TSH 0.663, PT 12.7, INR 1.3 * EKG revealed sinus rhythm with right bundle branch block. * Head CT revealed prominent but stable cerebral atrophy with no acute intracranial abnormality. * Chest x-ray revealed slight cardiomegaly and prominence of the interstitial markings chronic in nature. * Abdomen/pelvis revealed distended gallbladder with significant inflammatory process surrounding 8 extending to the hepatic flexure and involving the colon and highly staining for acute cholecystitis, fecal impaction and chronic initial process of both lung bases. * Blood cultures collected-showing no growth in 2 days. * Patient admitted for further evaluation and treatment. Ultrasound gallbladder 04/07/18 revealed likely acute cholecystitis. General surgeon Dr. Sarah consulted on 04/07/18, recommended cholecystostomy tube placement versus attempted treatment with antibiotics. Speech therapy consulted , recommended n.p.o. and skilled speech therapy to address severe oropharyngeal dysphagia. Nasogastric tube placed. Head MRI on 04/08/18 reveals severe atrophy with enlargement of the CSF spaces with no evidence of acute infarct, hemorrhage, mass or edema. Palliative care consulted for symptom management and clarification of goals of medical treatment. Chest x-ray today revealed patient mild bilateral parenchymal opacities. Laboratory workup today revealing WBC 13.0, hemoglobin 1 3.2, hematocrit 39.7, platelet count 246, sodium 153, potassium 2.9, BUN/creatinine 15/0.74, calcium 8.4. Nephrology consulted on 04/09/18 for evaluation and management of hypernatremia. Patient seen and examined in his room. Patient is awake in bed, lethargic and nonverbal. Patient does not follow simple commands and is not showing any signs of acute distress. Telephone conversation with patient's DURABLE POWER [employer]OTION[employer] MODEL Nanette Ferguson (family friend). Introduced palliative care and its role in symptom management and establishment of goals of medical treatment. Obtained partial psychosocial history, medical history and events leading to this hospitalization. Updated him on patient's current medical status. Discussed patient's trajectory of decline in the past years. Shared concerns regarding patient's current medical status and discussed at length regarding dementia with emphasis on it`s progression and complications patient may face. Patient is currently failing swallow evaluation, explained that the nasogastric tube patient has is only for temporary use and patient may need a PEG tube if he does not pass swallow evaluation. Phyllis(DPOA) does not want patient to undergo any invasive procedures, at this point she is agreeable to antibiotic therapy for acute cholecystitis and definitely does not want a PEG tube. Patient is already a DNR. Introduce hospice philosophy and benefits. Patient's DPOA receptive to hospice but would like to think through everything prior to hospice consultation. Requested palliative care contact information to call back with decision on whether to transition patient to comfort care through hospice services or not. Patient `s DPOA Phyllis was a very close friend to patient`s who November 22, 2017 and is very emotional in respect to loss of her close friend and patient`s decline. Received call from Phyllis @ 1332hrs and she has decided to transition patient to comfort care through hospice services. Function/Cognitive Trajectory: Patient is a long-term care resident at [facility] since Mid 2015. Patient is dependent for all his ADLs. Patient is bed to wheelchair existence. He requires feeding and verbal cues to swallow food. Needs are anticipated. Review of Systems other (ROS obtained from patient`s DPOA, medical record and clinical presentation.) Constitutional: Reports fever(s), Reports weight loss Eyes: Denies bulging eyes Ears, Nose, Mouth, and Throat: Reports difficulty swallowing, Denies nasal obstruction, Denies pain with swallowing Cardiovascular: Reports shortness of breath, Denies fast heart rate, Denies foot swelling, Denies generalized swelling Respiratory: Denies chest congestion, Denies cough Gastrointestinal: Reports difficulty swallowing, Reports other (diarrhea ), Denies nausea, Denies vomiting Genitourinary: Reports urinary incontinence, Denies blood in urine Musculoskeletal: Denies joint swelling Skin/Breast: Reports other (wound to cocyx area) Neurologic: Reports confusion, Denies restless legs Psychiatric: Reports confusion, Reports memory loss Endocrine: Denies rapid, pounding, or irregular heartbeat Hematologic/Lymphatic: Reports easy bruising PMFSH - History History Provided By: Medical Record - Medical History Medical History: Medical History (Last Updated 04/09/18 @ 10:26 by Corby Smith) CAD (coronary artery disease) Chronic constipation Dementia HTN (hypertension) High cholesterol - Tobacco History Smoking Status: Former smoker (History of heavy smoking-quit many years ago.) - Alcohol History How Often Do You Have a Drink Containing Alcohol: Never - Substance Use History Substance History: No History of Abuse - Travel History Recent Travel in the [place] Within the Last 8 Weeks: No Recent Travel Out of the Country Within the Last 8 Weeks: No - Immunization History Tetanus Immunization: Unsure Medications and Allergies Active Medications: Active Medications Acetaminophen (Tylenol) 650 mg PO Q4H PRN PRN Reason: Temp > 100.4 Al Hydroxide/Mg Hydroxide (Milk Of Magnesia Liq) 30 ml PO Q12H PRN PRN Reason: Mild Constipation Bisacodyl (Dulcolax Supp) 10 mg RECTAL DAILY PRN PRN Reason: SEVERE CONSITIPATION Enoxaparin Sodium (Lovenox Inj) 40 mg SQ Q24H NAVJOT Last Admin: 04/08/18 16:32 Dose: 40 mg Metronidazole/Sodium Chloride (Flagyl 500 Mg Inj) 100 mls @ 100 mls/hr IV.SIG Q8H NAVJOT Last Infusion: 04/09/18 04:13 Dose: Infused Levofloxacin/Dextrose (Levaquin 750 Mg Premix Inj) 150 mls @ 100 mls/hr IV.SIG Q24H NAVJOT Last Infusion: 04/08/18 16:34 Dose: Infused Potassium Chloride 10 meq/ (Dextrose) 1,005 mls @ 42 mls/hr IV.CONT .[id number] [facility] Last Admin: 04/08/18 16:32 Dose: 42 mls/hr Potassium Chloride (Kcl 20 Meq Premix Inj) 20 meq in 100 mls @ 50 mls/hr IV.SIG Q2H [facility] Stop: 04/09/18 10:59 Last Admin: 04/09/18 09:26 Dose: 50 mls/hr Lactulose (Lactulose Liq) 30 ml PO DAILY PRN PRN Reason: SEVERE CONSITIPATION Ondansetron HCl (Zofran Inj) 4 mg IV.PUSH Q4H PRN PRN Reason: NAUSEA OR VOMITING Senna/Docusate Sodium (Aimee-Colace) 1 tab PO BID [facility] Last Admin: 04/09/18 09:27 Dose: Not Given Sennosides (Senokot) 17.2 mg PO Q12H PRN PRN Reason: Moderate Constipation Sodium Chloride (Ns Flush) 2 ml IV.FLUSH PRN PRN PRN Reason: FLUSH AFTER USING IV ACCESS Allergies Allergy/AdvReac Type Severity Reaction Status Date / Time No Known Allergies Allergy Uncoded 08/21/16 10:07 Home Medications Medication Instructions Recorded Confirmed Type dextromethorphan-quinidine 1 cap PO Q12H 04/06/18 04/06/18 History [Nuedexta] divalproex 250 mg PO TID 04/06/18 04/06/18 History sennosides [senna] 2 tab PO DAILY 04/06/18 04/06/18 History simvastatin 40 mg PO QPM 04/06/18 04/06/18 History Advance Directives Advance Directives Date on File: 04/23/14 Healthcare Surrogate: Yes Power of [employer] Operator: Yes Power of [employer] Operator Name: Phyllis Cruzuca Power of [employer] Operator Relationship to Patient: Friend(s) Family/friends goals: Transition patient to comfort care through hospice services. Ethical and Legal Issues: None identified at this time. Physical Exam Vital Signs: Vital Signs - 24 hr 04/08/18 10:44 04/08/18 12:00 04/08/18 16:00 Temperature 97.8 F 97.3 F L Pulse Rate 63 60 Respiratory Rate 18 18 Blood Pressure 121/71 134/68 Pulse Oximetry 97 97 97 04/08/18 19:00 04/08/18 20:00 04/09/18 00:00 Temperature 98.0 F 98.4 F Pulse Rate 58 L 56 L 59 L Respiratory Rate 18 18 Blood Pressure 148/67 H 158/68 H Pulse Oximetry 100 98 04/09/18 04:00 04/09/18 07:56 04/09/18 08:00 Temperature 98.4 F 98 F Pulse Rate 60 57 L Respiratory Rate 18 20 Blood Pressure 156/69 H 112/58 L Pulse Oximetry 99 99 98 I&O: Intake & Output 04/07/18 04/08/18 04/09/18 04/10/18 06:59 06:59 06:59 06:59 Intake Total 1850 / 1850 1250 / 1250 1200 / 1200 100 / 100 Output Total 550 / 550 3 / 3 Balance 1300 / 1300 1250 / 1250 1197 / 1197 100 / 100 Weight 86.9 kg 86.3 kg 85.7 kg Physical Exam: CONSTITUTIONAL/GENERAL: This is an elderly patient, nonverbal, not showing signs of acute distress. TUBES/LINES/DRAINS: PIV SKIN: No jaundice, rashes, or lesions. Ecchymoses on upper extremities. No wounds seen anteriorly. Skin warm to touch. HEAD: Atraumatic. Normocephalic. EYES: Pupils equal and round and reactive. Extraocular motions intact. No scleral icterus. No injection or drainage. Fundi not examined. ENT: Hearing grossly normal. Nose without bleeding or purulent drainage. Moist oral mucosa NECK: Trachea midline. Supple, nontender. CARDIOVASCULAR: Regular rate and rhythm without murmurs, gallops, or rubs. No JVD. Peripheral pulses symmetric. RESPIRATORY/CHEST: Symmetric, unlabored respirations. Clear to auscultation. Breath sounds equal bilaterally. No wheezes, rales, or rhonchi. GASTROINTESTINAL: Abdomen soft, non-tender, nondistended. No guarding. Bowel sounds present. GENITOURINARY: Without palpable bladder distension. Incontinent of blood MUSCULOSKELETAL: Extremities without clubbing, cyanosis, or edema. No joint tenderness or effusion noted. No calf tenderness. No mottling or clubbing. NEUROLOGICAL: Awake lethargic. Nonverbal. Not following simple commands. Spontaneously moving all 4 extremities. PSYCHIATRIC: No obvious anxiety. no apparent hallucinations or other psychotic thought process. Diagnostic Tests Laboratory: Laboratory Results - last 72 hr 04/06/18 04/06/18 04/06/18 10:30 10:30 10:30 WBC 19.1 H RBC 4.70 Hgb 14.0 Hct 43.4 MCV 92.4 MCH 29.8 MCHC 32.2 RDW 16.1 Plt Count 236 MPV 8.9 Prelim Diff (Auto) Neut % (Auto) 85.2 H Lymph % (Auto) 6.6 L [place] % (Auto) 8.0 Eos % (Auto) 0.1 Baso % (Auto) 0.1 Neut # (Auto) 16.3 H Lymph # (Auto) 1.3 [place] # (Auto) 1.5 H Eos # (Auto) 0.0 Baso # (Auto) 0.0 WBC Differential . Seg Neuts % (Manual) Band Neuts % (Manual) Lymphocytes % (Manual) Monocytes % (Manual) Abs Neuts (Manual) Differential Comment Auto diff final Platelet Estimate Platelet Morphology PT 12.7 H INR 1.3 APTT 28.7 Sodium 148 H Potassium 3.3 L Chloride 111 H Carbon Dioxide 29.0 Anion Gap 8 BUN 25 H Creatinine 0.95 Estimated GFR 76 L POC Glucose Random Glucose 108 H Lactic Acid Calcium 8.6 Total Bilirubin 0.6 AST 33 ALT 36 Alkaline Phosphatase 88 Total Creatine Kinase Troponin I Less than 0.02 L Total Protein 7.6 Albumin 2.4 L Vitamin B12 TSH Urine Color Urine Clarity Urine pH Ur Specific [place] Urine Protein Urine Glucose (UA) Urine Ketones Urine Occult Blood Urine Nitrate Urine Bilirubin Urine Urobilinogen Ur Leukocyte Esterase Urine RBC Urine WBC Urine Mucus Micro UA Comment Ur Microscopic Review Urine Culture Comments Urine Osmolality Ur Random Sodium 04/06/18 04/06/18 04/06/18 10:30 10:30 10:30 WBC RBC Hgb Hct MCV MCH MCHC RDW Plt Count MPV Prelim Diff (Auto) Neut % (Auto) Lymph % (Auto) [place] % (Auto) Eos % (Auto) Baso % (Auto) Neut # (Auto) Lymph # (Auto) [place] # (Auto) Eos # (Auto) Baso # (Auto) WBC Differential Seg Neuts % (Manual) Band Neuts % (Manual) Lymphocytes % (Manual) Monocytes % (Manual) Abs Neuts (Manual) Differential Comment Platelet Estimate Platelet Morphology PT INR APTT Sodium Potassium Chloride Carbon Dioxide Anion Gap BUN Creatinine Estimated GFR POC Glucose Random Glucose Lactic Acid 1.0 Calcium Total Bilirubin AST ALT Alkaline Phosphatase Total Creatine Kinase Troponin I Total Protein Albumin Vitamin B12 TSH 0.663 Urine Color Asha Urine Clarity Hazy H Urine pH 5.0 Ur Specific [place] 1.027 Urine Protein 30 H Urine Glucose (UA) Negative Urine Ketones Negative Urine Occult Blood Small H Urine Nitrate Negative Urine Bilirubin Negative Urine Urobilinogen 4 or greater Ur Leukocyte Esterase Negative Urine RBC 2 Urine WBC 2 Urine Mucus Few H Micro UA Comment Cath-culture not ind Ur Microscopic Review Not Reportable Urine Culture Comments Cath-cult not ind Urine Osmolality Ur Random Sodium 04/06/18 04/06/18 04/07/18 16:55 22:59 06:58 WBC 15.8 H RBC 4.32 L Hgb 13.2 Hct 40.1 MCV 92.7 MCH 30.5 MCHC 32.9 RDW 16.4 Plt Count 205 MPV 8.7 Prelim Diff (Auto) Slide review pending Neut % (Auto) 84.3 H Lymph % (Auto) 6.8 L [place] % (Auto) 8.2 H Eos % (Auto) 0.4 Baso % (Auto) 0.3 Neut # (Auto) 13.3 H Lymph # (Auto) 1.1 [place] # (Auto) 1.3 H Eos # (Auto) 0.1 Baso # (Auto) 0.1 WBC Differential Manual diff final Seg Neuts % (Manual) 76 H Band Neuts % (Manual) 13 H Lymphocytes % (Manual) 3 L Monocytes % (Manual) 8 Abs Neuts (Manual) 14.1 H Differential Comment . Platelet Estimate Normal Platelet Morphology Normal PT INR APTT Sodium Potassium Chloride Carbon Dioxide Anion Gap BUN Creatinine Estimated GFR POC Glucose Random Glucose Lactic Acid Calcium Total Bilirubin AST ALT Alkaline Phosphatase Total Creatine Kinase 16 L 18 L Troponin I Less than 0.02 L Less than 0.02 L Total Protein Albumin Vitamin B12 TSH Urine Color Urine Clarity Urine pH Ur Specific [place] Urine Protein Urine Glucose (UA) Urine Ketones Urine Occult Blood Urine Nitrate Urine Bilirubin Urine Urobilinogen Ur Leukocyte Esterase Urine RBC Urine WBC Urine Mucus Micro UA Comment Ur Microscopic Review Urine Culture Comments Urine Osmolality Ur Random Sodium 04/07/18 04/07/18 04/08/18 06:58 08:52 04:50 WBC 14.9 H RBC 4.26 L Hgb 12.8 L Hct 39.6 MCV 92.9 MCH 30.0 MCHC 32.3 RDW 16.5 Plt Count 222 MPV 8.5 Prelim Diff (Auto) Neut % (Auto) 81.7 H Lymph % (Auto) 8.4 L [place] % (Auto) 8.9 H Eos % (Auto) 0.9 Baso % (Auto) 0.1 Neut # (Auto) 12.2 H Lymph # (Auto) 1.3 [place] # (Auto) 1.3 H Eos # (Auto) 0.1 Baso # (Auto) 0.0 WBC Differential . Seg Neuts % (Manual) Band Neuts % (Manual) Lymphocytes % (Manual) Monocytes % (Manual) Abs Neuts (Manual) Differential Comment Auto diff final Platelet Estimate Platelet Morphology PT INR APTT Sodium 151 H Potassium 4.4 D Chloride 115 H Carbon Dioxide 28.6 Anion Gap 7 BUN 23 H Creatinine 0.77 Estimated GFR Greater than 89 POC Glucose 89 Random Glucose 79 Lactic Acid Calcium 8.4 L Total Bilirubin AST ALT Alkaline Phosphatase Total Creatine Kinase Troponin I Total Protein Albumin Vitamin B12 TSH Urine Color Urine Clarity Urine pH Ur Specific [place] Urine Protein Urine Glucose (UA) Urine Ketones Urine Occult Blood Urine Nitrate Urine Bilirubin Urine Urobilinogen Ur Leukocyte Esterase Urine RBC Urine WBC Urine Mucus Micro UA Comment Ur Microscopic Review Urine Culture Comments Urine Osmolality Ur Random Sodium 04/08/18 04/08/18 04/08/18 10:20 10:20 15:00 WBC RBC Hgb Hct MCV MCH MCHC RDW Plt Count MPV Prelim Diff (Auto) Neut % (Auto) Lymph % (Auto) [place] % (Auto) Eos % (Auto) Baso % (Auto) Neut # (Auto) Lymph # (Auto) [place] # (Auto) Eos # (Auto) Baso # (Auto) WBC Differential Seg Neuts % (Manual) Band Neuts % (Manual) Lymphocytes % (Manual) Monocytes % (Manual) Abs Neuts (Manual) Differential Comment Platelet Estimate Platelet Morphology PT INR APTT Sodium 152 H Potassium 3.3 L D Chloride 115 H Carbon Dioxide 28.8 Anion Gap 8 BUN 19 H Creatinine 0.78 Estimated GFR Greater than 89 POC Glucose Random Glucose 97 Lactic Acid Calcium 8.4 L Total Bilirubin AST ALT Alkaline Phosphatase Total Creatine Kinase Troponin I Total Protein Albumin Vitamin B12 395 TSH Urine Color Urine Clarity Urine pH Ur Specific [place] Urine Protein Urine Glucose (UA) Urine Ketones Urine Occult Blood Urine Nitrate Urine Bilirubin Urine Urobilinogen Ur Leukocyte Esterase Urine RBC Urine WBC Urine Mucus Micro UA Comment Ur Microscopic Review Urine Culture Comments Urine Osmolality 892 Ur Random Sodium 04/08/18 04/09/18 04/09/18 15:00 03:33 03:33 WBC 13.0 H RBC 4.36 L Hgb 13.2 Hct 39.7 MCV 91.0 MCH 30.2 MCHC 33.1 RDW 16.0 Plt Count 246 MPV 8.5 Prelim Diff (Auto) Neut % (Auto) 77.5 H Lymph % (Auto) 10.6 [place] % (Auto) 10.3 H Eos % (Auto) 1.1 Baso % (Auto) 0.5 Neut # (Auto) 10.1 H Lymph # (Auto) 1.4 [place] # (Auto) 1.3 H Eos # (Auto) 0.1 Baso # (Auto) 0.1 WBC Differential . Seg Neuts % (Manual) Band Neuts % (Manual) Lymphocytes % (Manual) Monocytes % (Manual) Abs Neuts (Manual) Differential Comment Auto diff final Platelet Estimate Platelet Morphology PT INR APTT Sodium 153 H Potassium 2.9 L* Chloride 114 H Carbon Dioxide 29.9 Anion Gap 9 BUN 15 Creatinine 0.74 Estimated GFR Greater than 89 POC Glucose Random Glucose 100 Lactic Acid Calcium 8.4 L Total Bilirubin AST ALT Alkaline Phosphatase Total Creatine Kinase Troponin I Total Protein Albumin Vitamin B12 TSH Urine Color Urine Clarity Urine pH Ur Specific [place] Urine Protein Urine Glucose (UA) Urine Ketones Urine Occult Blood Urine Nitrate Urine Bilirubin Urine Urobilinogen Ur Leukocyte Esterase Urine RBC Urine WBC Urine Mucus Micro UA Comment Ur Microscopic Review Urine Culture Comments Urine Osmolality Ur Random Sodium 73 Result Diagrams: 04/09/18 03:33 04/09/18 03:33 Microbiology: Microbiology 04/06/18 10:30 Aerobic Blood Culture - Preliminary Blood - Peripheral No growth in 2 days Anaerobic Blood Culture - Preliminary No growth in 2 days 04/06/18 10:30 Aerobic Blood Culture - Preliminary Blood - Peripheral No growth in 2 days Anaerobic Blood Culture - Preliminary No growth in 2 days Imaging: Abdomen/Pelvis CT 04/06/18 00:00 CONCLUSION: 1. Distended gallbladder with significant inflammatory process surrounding it which extends to the hepatic flexure and involves parts of the colon wall highly concerning for acute cholecystitis. 2. Fecal impaction. 3. Probable chronic initial process both lung bases. Head CT 04/06/18 10:05 CONCLUSION: 1. Prominent but stable cerebral atrophy. 2. No acute intracranial abnormality or significant interval change. . Gallbladder Ultrasound 04/07/18 00:00 CONCLUSION: 1. Gallbladder wall thickening with cholelithiasis, sludge and pericholecystic fluid concerning for acute cholecystitis. 2. Nonvisualization of part of the left lobe of the liver. 3. 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 Head MRI 04/08/18 00:00 CONCLUSION: 1. Severe atrophy with enlargement of the CSF spaces. 2. No evidence of acute infarct, hemorrhage, mass or edema. Chest X-Ray 04/09/18 00:00 CONCLUSION: 1. Patchy mild bilateral parenchymal opacities not significantly changed. 2. Nasogastric tube tip is in the upper stomach. The sidehole is near the GE junction. Patient/Family Conference Family Conference Location: Telephone (Telephone conversation with patient`s Nanette Rudd) Issues Discussed: * Palliative care role, purpose, approach * Additional medical, psychosocial, and spiritual history * Patients general health, functional status, and cognitive changes in the months leading up to the current hospitalization * Patient/family understanding of the current medical problems * Patient/family understanding of prognosis * Patients goals of care as best understood from advance directives and/or conversations and/or values * Current medical treatment options and benefits/burdens of those options * Likely scenarios comparing ongoing aggressive care with a transition to comfort measures only * Questions answered to the best of my ability * Palliative care contact information provided Assessment and Plan - Disease Oriented Problem List (1) Acute cholecystitis (2) Leukocytosis (3) Hypernatremia (4) Dementia - Symptom Scale (1) Dysphagia 0-10 Scale: Unable to quantify (2) At risk for pain 0-10 Scale: Unable to quantify Comment: bedbound, has an NGT, PIV which can be sources of pain (3) Altered mental status 0-10 Scale: Unable to quantify Comment: Patient has advanced dementia. Non verbal.FAST7C (4) Debility 0-10 Scale: Unable to quantify Comment: progressive Pertinent Non-Medical Issues: Psychosocial: Patient is a . He has recently on November 22, 2016. They never had children. 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 Patient served in the [facility] Spiritual: No caodaism affiliation but DPOA would like security dispatcher visits. Legal: Patient his DURABLE POWER OF BRAND [employer]BASSADOR PROMOTIONAL MODEL and a [facility] DNR Ethical issues impacting care: None identified at this time Important Contacts: Durable Power of tax attorney-Phyllis [phone] Prognosis: Mr. Watkins is a 77 years old with a past medical history of dementia, coronary disease, hypertension, hyperlipidemia and chronic constipation. Patient was brought to the emergency room via EMS on 04/06/18 from [facility] for further evaluation of low-grade temp, low oxygen saturation and less responsiveness. Clinical course complicated with leukocytosis most likely from possible acute cholecystitis, and dysphagia. Given multiple ongoing comorbidities inclusive of dementia which is a progressive disease, patient remains at high risk for further complications, deterioration and decline. Code Status: No Code DNR Plan: PLAN: Legal decision maker: Patient has advanced dementia, is non-verbal and will most likely not regain capacity to make his own medical decisions. He has a Durable Power of [place] Operator Phyllis Fitzpatrick who will participate in medical decision making. Goals: Patient`s DPOA would like to transition patient to comfort measures only through hospice services. She does not want any invasive procedures performed including placement of a PEG tube. DPOA understands that patient has a progressive disease and will continue to deteriorate with time. CODE STATUS: No Code DNR/DNI SYMPTOMS: * Dysphagia: Patient has history of dementia. Patient was on pured diet and thickened liquids at the retirement, requiring feeding and verbal cues to open mouth and swallow his food. Patient's dysphagia is most likely due to progression of disease. He is also at risk for aspiration. Patient currently has an NG tube and is n.p.o. Patient may need in a PEG tube if he does not pass swallow eval. Speech therapy following * Altered mental status: Patient has history of advanced dementia, with baseline of nonverbal. FAST 7C. CT brain and brain MRI both negative for acute process and * At risk for pain: Patient most likely is acute cholelithiasis. He may also have pain and discomfort from having and NGT. Patient has Tylenol prn. * Debility:Patient has advanced dementia. Resides in a long-term care facility. Requires total assistance with all his ADLs including feeding. This is most likely due to progressive nature of disease. Palliative care will continue to follow the patient during hospital course as condition evolves, to assist patient/decision-maker with understanding of their medical conditions, weighing benefits/burdens of treatment options, for clarification of goals of treatment. Additionally will assist with any symptoms of palliative concern Appreciation Thank you for the opportunity to participate in the care of Maya Watkins. Attestation Attestation: To help prompt me to consider important information that might be impacting today's encounter and assessment, information from prior notes written by myself or my colleagues may have been "brought forward" into today's note. My signature on this note, however, is an attestation that I personally performed the exam, history, and/or decision-making noted today, and, unless otherwise indicated, the interactions with patient, family, and staff as well as the review of records all occurred today. I also attest that the listed assessment and stated plan reflect my best clinical judgment today based on the combination of historical information, prior notes, and today's exam/ interactions. When time spent is documented, it refers only to time spent today by the signer, or if indicated, combined time spent today by collaborating physician/nurse practitioner.
--- NOTE | 2018-04-09 12:13 | P.CONNP ---
<Marcy Jorgensen Hector - Last Filed: 04/09/18 12:05> History of Present Illness Service: Nephrology Consult date: 04/08/18 Requesting Physician: Apolinar Trotter Reason for Consult: Hypernatremia Primary Care Provider: Jose Hargrove Chief Complaint: Altered mental status History of Present Illness: The patient is a 77 yo [place] male who was brought to this facility from his senior living for worsening mentation on 04/06/18. He had a CT abdomen performed that showed acute cholecystitis. The patient himself cannot offer no meaningful history given advanced dementia. We ave been consulted for hypernatremia. Review of Systems unobtainable due to mental status PMFSH - History History Provided By: Medical Record - Medical History Medical History: Medical History (Last Updated 04/09/18 @ 10:26 by Corby Smith) CAD (coronary artery disease) Chronic constipation Dementia HTN (hypertension) High cholesterol - Tobacco History Smoking Status: Former smoker (History of heavy smoking-quit many years ago.) - Alcohol History How Often Do You Have a Drink Containing Alcohol: Never - Substance Use History Substance History: No History of Abuse - Travel History Recent Travel in the [place] Within the Last 8 Weeks: No Recent Travel Out of the Country Within the Last 8 Weeks: No - Immunization History Tetanus Immunization: Unsure Medications and Allergies Allergies Allergy/AdvReac Type Severity Reaction Status Date / Time No Known Allergies Allergy Uncoded 08/21/16 10:07 Home Medications Medication Instructions Recorded Confirmed Type dextromethorphan-quinidine 1 cap PO Q12H 04/06/18 04/06/18 History [Nuedexta] divalproex 250 mg PO TID 04/06/18 04/06/18 History sennosides [senna] 2 tab PO DAILY 04/06/18 04/06/18 History simvastatin 40 mg PO QPM 04/06/18 04/06/18 History Active Medications: Active Medications Acetaminophen (Tylenol) 650 mg PO Q4H PRN PRN Reason: Temp > 100.4 Al Hydroxide/Mg Hydroxide (Milk Of Magnesia Liq) 30 ml PO Q12H PRN PRN Reason: Mild Constipation Bisacodyl (Dulcolax Supp) 10 mg RECTAL DAILY PRN PRN Reason: SEVERE CONSITIPATION Enoxaparin Sodium (Lovenox Inj) 40 mg SQ Q24H [facility] Last Admin: 04/08/18 16:32 Dose: 40 mg Metronidazole/Sodium Chloride (Flagyl 500 Mg Inj) 100 mls @ 100 mls/hr IV.SIG Q8H [facility] Last Infusion: 04/09/18 04:13 Dose: Infused Levofloxacin/Dextrose (Levaquin 750 Mg Premix Inj) 150 mls @ 100 mls/hr IV.SIG Q24H [facility] Last Infusion: 04/08/18 16:34 Dose: Infused Potassium Chloride 10 meq/ (Dextrose) 1,005 mls @ 42 mls/hr IV.CONT .[id number] [facility] Last Admin: 04/08/18 16:32 Dose: 42 mls/hr Lactulose (Lactulose Liq) 30 ml PO DAILY PRN PRN Reason: SEVERE CONSITIPATION Ondansetron HCl (Zofran Inj) 4 mg IV.PUSH Q4H PRN PRN Reason: NAUSEA OR VOMITING Senna/Docusate Sodium (Aimee-Colace) 1 tab PO BID [facility] Last Admin: 04/09/18 09:27 Dose: Not Given Sennosides (Senokot) 17.2 mg PO Q12H PRN PRN Reason: Moderate Constipation Sodium Chloride (Ns Flush) 2 ml IV.FLUSH PRN PRN PRN Reason: FLUSH AFTER USING IV ACCESS Exam Vital signs: Vital Signs 04/08/18 16:00 04/08/18 19:00 04/08/18 20:00 Temperature 97.3 F L 98.0 F Pulse Rate 60 58 L 56 L Respiratory Rate 18 18 Blood Pressure 134/68 148/67 H Pulse Oximetry 97 100 04/09/18 00:00 04/09/18 04:00 04/09/18 07:56 Temperature 98.4 F 98.4 F Pulse Rate 59 L 60 Respiratory Rate 18 18 Blood Pressure 158/68 H 156/69 H Pulse Oximetry 98 99 99 04/09/18 08:00 Temperature 98 F Pulse Rate 57 L Respiratory Rate 20 Blood Pressure 112/58 L Pulse Oximetry 98 Intake & Output 04/08/18 04/09/18 04/09/18 18:59 06:59 18:59 Intake Total 1000 / 1000 200 / 200 100 / 100 Output Total 3 / 3 Balance 1000 / 1000 197 / 197 100 / 100 Weight 85.7 kg Intake: IV 1000 / 1000 200 / 200 100 / 100 1/2 Normal Saline Inj 1,000 ML 750 / 750 @ 42 mls/hr IV.CONT .[id number] [facility] Rx#:[id number] Levaquin 750 mg Premix Inj 150 150 / 150 ML @ 100 mls/hr IV.SIG Q24H [facility] Rx#:[id number] KCl 20 mEq Premix Inj 20 meq In 100 / 100 100 ml @ 50 mls/hr IV.SIG Q2H [facility] Rx#:[id number] Flagyl 500 MG Inj 100 ML @ 100 100 / 100 200 / 200 mls/hr IV.SIG Q8H [facility] Rx#: [id number] Oral 0 / 0 Output: Urine 3 / 3 Other: # Incontinent Bowel Movements 0 - Constitutional no acute distress - Routine HEENT Exam Head: Present: normocephalic, atraumatic - Routine Neck Exam Present: supple - Routine Respiratory Exam Present: CTA bilaterally - Routine Cardiovascular Exam Present: RRR, S1, S2 - Routine Extremities Exam Absent: edema Results - Lab Results 04/09/18 03:33 04/09/18 03:33 Most recent lab results Calcium 8.4 mg/dL (8.5-10.1) L 04/09/18 03:33 Assessment and Plan - Assessment (1) Hypernatremia Code(s): E87.0 - Hyperosmolality and hypernatremia Status: Acute Plan: Likely related to free water deficit. Increase D5W IVF. Once NG tune in proper position, could add free water to NG tube. (2) Hypokalemia Code(s): E87.6 - Hypokalemia Status: Acute Plan: 20meq ordered this AM. 10meq added to IVF. Repeat and replete as needed. Check Mg level (3) Altered mental status Code(s): R41.82 - Altered mental status, unspecified Status: Acute (4) Acute cholecystitis Code(s): K81.0 - Acute cholecystitis Status: Acute <Amarilys Bennett - Last Filed: 04/10/18 11:26> History of Present Illness Primary Care Provider: Jose Hargrove [facility] - Medical History Medical History: Medical History (Last Updated 04/09/18 @ 10:26 by Corby Smith) CAD (coronary artery disease) Chronic constipation Dementia HTN (hypertension) High cholesterol Medications and Allergies Active Medications: Active Medications Acetaminophen (Tylenol) 650 mg PO Q4H PRN PRN Reason: Temp > 100.4 Al Hydroxide/Mg Hydroxide (Milk Of Magnesia Liq) 30 ml PO Q12H PRN PRN Reason: Mild Constipation Bisacodyl (Dulcolax Supp) 10 mg RECTAL DAILY PRN PRN Reason: SEVERE CONSITIPATION Enoxaparin Sodium (Lovenox Inj) 40 mg SQ Q24H [facility] Last Admin: 04/09/18 18:03 Dose: 40 mg Metronidazole/Sodium Chloride (Flagyl 500 Mg Inj) 100 mls @ 100 mls/hr IV.SIG Q8H [facility] Last Infusion: 04/10/18 09:42 Dose: Infused Levofloxacin/Dextrose (Levaquin 750 Mg Premix Inj) 150 mls @ 100 mls/hr IV.SIG Q24H [facility] Last Infusion: 04/09/18 13:38 Dose: Infused Potassium Chloride 10 meq/ (Dextrose) 1,005 mls @ 110 mls/hr IV.CONT .Q9H9M [facility] Last Admin: 04/10/18 05:55 Dose: 90 mls/hr Potassium Chloride (Kcl 20 Meq Premix Inj) 20 meq in 100 mls @ 50 mls/hr IV.SIG Q2H [facility] Stop: 04/10/18 15:23 Lactulose (Lactulose Liq) 30 ml PO DAILY PRN PRN Reason: SEVERE CONSITIPATION Ondansetron HCl (Zofran Inj) 4 mg IV.PUSH Q4H PRN PRN Reason: NAUSEA OR VOMITING Senna/Docusate Sodium (Aimee-Colace) 1 tab PO BID [facility] Last Admin: 04/10/18 08:15 Dose: Not Given Sennosides (Senokot) 17.2 mg PO Q12H PRN PRN Reason: Moderate Constipation Sodium Chloride (Ns Flush) 2 ml IV.FLUSH PRN PRN PRN Reason: FLUSH AFTER USING IV ACCESS Exam Vital signs: Vital Signs 04/09/18 12:00 04/09/18 15:57 04/09/18 16:00 Temperature 98.1 F 98.1 F Pulse Rate 57 L 55 L Respiratory Rate 20 20 Blood Pressure 130/69 104/51 L Pulse Oximetry 100 98 95 04/09/18 20:00 04/09/18 21:47 04/10/18 00:00 Temperature 97.6 F 97.8 F Pulse Rate 55 L 53 L Respiratory Rate 14 14 Blood Pressure 150/67 H 157/68 H Pulse Oximetry 96 98 96 04/10/18 04:00 04/10/18 05:00 04/10/18 08:00 Temperature 97.4 F L 97.6 F Pulse Rate 56 L 51 L Respiratory Rate 15 20 Blood Pressure 165/71 H 122/67 109/57 L Pulse Oximetry 96 100 04/10/18 10:52 Temperature Pulse Rate Respiratory Rate Blood Pressure Pulse Oximetry 95 Intake & Output 04/09/18 04/10/18 04/10/18 18:59 06:59 18:59 Intake Total 1455 / 1455 1205 / 1205 100 / 100 Balance 1455 / 1455 1205 / 1205 100 / 100 Weight 87.4 kg Intake: IV 1455 / 1455 1205 / 1205 100 / 100 KCl Inj 10 MEQ In D5W Inj 1,000 1005 / 1005 1005 / 1005 ML @ 90 mls/hr IV.CONT . [id number] [facility] Rx#:[id number] Levaquin 750 mg Premix Inj 150 150 / 150 ML @ 100 mls/hr IV.SIG Q24H [facility] Rx#:[id number] KCl 20 mEq Premix Inj 20 meq In 200 / 200 100 ml @ 50 mls/hr IV.SIG Q2H [facility] Rx#:[id number] Flagyl 500 MG Inj 100 ML @ 100 100 / 100 200 / 200 100 / 100 mls/hr IV.SIG Q8H [facility] Rx#: [id number] Oral 0 / 0 Other: # Incontinent Voids 3 # Incontinent Bowel Movements 1 Results - Lab Results 04/09/18 03:33 04/10/18 04:18 Most recent lab results Calcium 8.0 mg/dL (8.5-10.1) L 04/10/18 04:18 Magnesium 2.0 mg/dL (1.5-2.5) 04/09/18 19:25 Assessment and Plan - Assessment (1) Hypernatremia Code(s): E87.0 - Hyperosmolality and hypernatremia Status: Acute (2) Hypokalemia Code(s): E87.6 - Hypokalemia Status: Acute (3) Altered mental status Code(s): R41.82 - Altered mental status, unspecified Status: Acute (4) Acute cholecystitis Code(s): K81.0 - Acute cholecystitis Status: Acute - Attending Attestation The exam, history, and the medical decision-making described in the above note were completed with the assistance of the PAUsman. I reviewed and agree with the findings presented. I attest that I had a [id number] encounter with the patient on the same day, and personally performed and documented my assessment and findings in the medical record.
--- NOTE | 2018-04-09 14:17 | P.PNGS ---
Subjective Interval history: Patient has had no major changes. Palliative care has discussed with family and hospice will be consulted which I fully agree with. WIll be available if needed. Physical Exam Vital signs: Vital Signs 04/08/18 16:00 04/08/18 19:00 04/08/18 20:00 Temperature 97.3 F L 98.0 F Pulse Rate 60 58 L 56 L Respiratory Rate 18 18 Blood Pressure 134/68 148/67 H Pulse Oximetry 97 100 04/09/18 00:00 04/09/18 04:00 04/09/18 07:56 Temperature 98.4 F 98.4 F Pulse Rate 59 L 60 Respiratory Rate 18 18 Blood Pressure 158/68 H 156/69 H Pulse Oximetry 98 99 99 04/09/18 08:00 04/09/18 12:00 Temperature 98 F 98.1 F Pulse Rate 57 L 57 L Respiratory Rate 20 20 Blood Pressure 112/58 L 130/69 Pulse Oximetry 98 100 Intake & Output 04/08/18 04/09/18 04/09/18 18:59 06:59 18:59 Intake Total 1000 / 1000 200 / 200 1455 / 1455 Output Total 3 / 3 Balance 1000 / 1000 197 / 197 1455 / 1455 Weight 85.7 kg Intake: IV 1000 / 1000 200 / 200 1455 / 1455 KCl Inj 10 MEQ In D5W Inj 1,000 1005 / 1005 ML @ 90 mls/hr IV.CONT . [id number] [facility] Rx#:[id number] 1/2 Normal Saline Inj 1,000 ML 750 / 750 @ 42 mls/hr IV.CONT .[id number] [facility] Rx#:[id number] Levaquin 750 mg Premix Inj 150 150 / 150 150 / 150 ML @ 100 mls/hr IV.SIG Q24H [facility] Rx#:[id number] KCl 20 mEq Premix Inj 20 meq In 200 / 200 100 ml @ 50 mls/hr IV.SIG Q2H [facility] Rx#:[id number] Flagyl 500 MG Inj 100 ML @ 100 100 / 100 200 / 200 100 / 100 mls/hr IV.SIG Q8H [facility] Rx#: [id number] Oral 0 / 0 Output: Urine 3 / 3 Other: # Incontinent Bowel Movements 0 - Urinary Catheter Management Straight Cath placed during this visit: yes Reason for continuing: Not indwelling catheter Insertion date: 04/06/18 Insertion time: 10:30 Assessment and Plan - Assessment (1) Acute cholecystitis Code(s): K81.0 - Acute cholecystitis Status: Acute - Plan Based on imaging patient appears to have acute cholecystitis which would explain his mild elevated temps and leukocytosis. I would not recommend surgery in his situation. Options include cholecystostomy tube placement vs attempted treatment with antibiotics. I discussed this with the patient's POA Phyllis and she would like to try to avoid invasive procedures at this time which I think is very reasonable. Recommend continue IV antibiotics for now.
--- NOTE | 2018-04-09 15:32 | XR ---
EXAM DATE: 04/09/2018 1:37 PM EDT AGE/SEX: 77 years / Male INDICATIONS: Nasogastric tube advancement. CLINICAL DATA: This is the patient's initial encounter. Patient reports that signs and symptoms have been present for 1 week and indicates a pain score of Nonresponsive. MEDICAL/SURGICAL HISTORY: Hypertension. coronary artery disease, dementia . none known COMPARISON: [facility] [place], ABDOMEN KUB ONLY, 08/21/2016. . FINDINGS: Nasogastric tube across the GE junction. Minimal bibasilar parenchymal changes are present. Bowel gas pattern is nonspecific. CONCLUSION: Nasogastric tube across the GE junction. Electronically signed by: Evens Valle MD 04/09/2018 3:31 PM EDT
[2018-04-09] MEDS: Enoxaparin Inj 40 MG/0.4 ML Syringe SQ SCH (18:03)
[2018-04-09] MEDS: Potassium Chloride Inj 10 MEQ in Dextrose 5% in Water Inj 1,000 ML IV.CONT SCH ×2 (18:03)
[2018-04-09 20:32] LABS: Anion Gap 8 meq/L (5-15); Blood Urea Nitrogen 12 mg/dL (7-18); Calcium 8.1 mg/dL (8.5-10.1); Carbon Dioxide 29.3 meq/L (21.0-32.0); Chloride 112 meq/L (98-107); Glomerular Filtration Rate Greater Than 89 mL/min (>89); Glucose,Random 98 mg/dL (74-106); Potassium 3.2 meq/L (3.5-5.1); Sodium 149 meq/L (136-145)
[2018-04-10] MEDS: Potassium Chloride Inj 10 MEQ in Dextrose 5% in Water Inj 1,000 ML IV.CONT SCH ×6 (03:27→14:12)
[2018-04-10 05:55] LABS: Anion Gap 10 meq/L (5-15); Blood Urea Nitrogen 10 mg/dL (7-18); Carbon Dioxide 30.2 meq/L (21.0-32.0); Chloride 108 meq/L (98-107); Glomerular Filtration Rate Greater Than 89 mL/min (>89); Glucose,Random 112 mg/dL (74-106); Sodium 148 meq/L (136-145)
[2018-04-10] MEDS: Senna/Docusate Sodium 8.6/50 MG Tablet PO SCH ×2 (08:15→20:29)
--- NOTE | 2018-04-10 11:30 | P.PNNP ---
Subjective Interval history: Patient nonverbal and not responding to simple commands or questions. Opens eyes to stimuli Physical Exam Vital signs: Vital Signs 04/09/18 12:00 04/09/18 15:57 04/09/18 16:00 Temperature 98.1 F 98.1 F Pulse Rate 57 L 55 L Respiratory Rate 20 20 Blood Pressure 130/69 104/51 L Pulse Oximetry 100 98 95 04/09/18 20:00 04/09/18 21:47 04/10/18 00:00 Temperature 97.6 F 97.8 F Pulse Rate 55 L 53 L Respiratory Rate 14 14 Blood Pressure 150/67 H 157/68 H Pulse Oximetry 96 98 96 04/10/18 04:00 04/10/18 05:00 04/10/18 08:00 Temperature 97.4 F L 97.6 F Pulse Rate 56 L 51 L Respiratory Rate 15 20 Blood Pressure 165/71 H 122/67 109/57 L Pulse Oximetry 96 100 04/10/18 10:52 Temperature Pulse Rate Respiratory Rate Blood Pressure Pulse Oximetry 95 Intake & Output 04/09/18 04/10/18 04/10/18 18:59 06:59 18:59 Intake Total 1455 / 1455 1205 / 1205 100 / 100 Balance 1455 / 1455 1205 / 1205 100 / 100 Weight 87.4 kg Intake: IV 1455 / 1455 1205 / 1205 100 / 100 KCl Inj 10 MEQ In D5W Inj 1,000 1005 / 1005 1005 / 1005 ML @ 90 mls/hr IV.CONT . [id number] [facility] Rx#:[id number] Levaquin 750 mg Premix Inj 150 150 / 150 ML @ 100 mls/hr IV.SIG Q24H [facility] Rx#:[id number] KCl 20 mEq Premix Inj 20 meq In 200 / 200 100 ml @ 50 mls/hr IV.SIG Q2H [facility] Rx#:[id number] Flagyl 500 MG Inj 100 ML @ 100 100 / 100 200 / 200 100 / 100 mls/hr IV.SIG Q8H [facility] Rx#: [id number] Oral 0 / 0 Other: # Incontinent Voids 3 # Incontinent Bowel Movements 1 Narrative: GENERAL: Emaciated, debilitated appearing gentleman not in respiratory distress. SKIN: Warm and dry. HEAD: Normocephalic. EYES: No scleral icterus. No injection or drainage. NECK: Supple, trachea midline. No JVD. CARDIOVASCULAR: Regular rate and rhythm without murmurs, gallops, or rubs. RESPIRATORY: Breath sounds equal bilaterally. No accessory muscle use. GASTROINTESTINAL: Abdomen soft, non-tender, nondistended. MUSCULOSKELETAL: No cyanosis, or edema. - Urinary Catheter Management Straight Cath placed during this visit: yes Reason for continuing: Not indwelling catheter Insertion date: 04/06/18 Insertion time: 10:30 Assessment and Plan - Assessment (1) Hypernatremia Code(s): E87.0 - Hyperosmolality and hypernatremia Status: Acute Plan: Serum sodium level improving but slower than desired. We will increase D5W. Repeat BMP in a.m. If patient's oral intake remains inadequate alternative means of hydration will be required when IV fluids discontinued. I will defer to hospitalist physician in regard to decision on whether or not the patient is a candidate for enteral feeding tube. I believe this decision will have to be made together with family if available. (2) Hypokalemia Code(s): E87.6 - Hypokalemia Status: Acute Plan: 20meq ordered this AM 2. (3) Altered mental status Code(s): R41.82 - Altered mental status, unspecified Status: Acute (4) Acute cholecystitis Code(s): K81.0 - Acute cholecystitis Status: Acute
--- NOTE | 2018-04-10 11:34 | P.DS ---
Date of admission: 04/06/18 14:00 Primary care physician: Jose Hargrove Brief History from admission: This is a pleasant 77 y/o Male who came from [place] with history of Dementia, usually nonverbal, presents to the ER today brought in by EMS because [facility] staff noticed that he is less responsive than usual. He has a low-grade fever of 100.1 in the ER. Staff had noted that he had low oxygen saturation but they were not able to give us any numbers, they have put him on 2 L nasal cannula. He is not able to give me any further history. Seen in Emergency room he is DNR and poor prognosis, non verbal patient, will consult student development specialist from ID search will complete a CT abdomen and Pelvis to look for source of infection. DS: Summary Hospital Course: Patient was admitted and started on IV fluids. Found to have possible cholecystitis via imaging. Patient was treated conservatively with antibiotics per POA preferences after after discussion with general surgery. Patient developed worsening hypernatremia, possibly due to poor p.o. intake. Nephrology helped comanage fluids with some improvement in hypernatremia. Yet patient failed swallow study per speech therapy, after discussion with palliative care POA ultimately opted out of NG tube feeds and elected hospice. - Time Spent with Patient Total time spent providing and/or coordinating discharge services: Less than 30 minutes Exam Vital signs: Vital Signs 04/09/18 12:00 04/09/18 15:57 04/09/18 16:00 Temperature 98.1 F 98.1 F Pulse Rate 57 L 55 L Respiratory Rate 20 20 Blood Pressure 130/69 104/51 L Pulse Oximetry 100 98 95 04/09/18 20:00 04/09/18 21:47 04/10/18 00:00 Temperature 97.6 F 97.8 F Pulse Rate 55 L 53 L Respiratory Rate 14 14 Blood Pressure 150/67 H 157/68 H Pulse Oximetry 96 98 96 04/10/18 04:00 04/10/18 05:00 04/10/18 08:00 Temperature 97.4 F L 97.6 F Pulse Rate 56 L 51 L Respiratory Rate 15 20 Blood Pressure 165/71 H 122/67 109/57 L Pulse Oximetry 96 100 04/10/18 10:52 Temperature Pulse Rate Respiratory Rate Blood Pressure Pulse Oximetry 95 Intake & Output 04/09/18 04/10/1818 18:59 06:59 18:59 Intake Total 1455 / 1455 1205 / 1205 100 / 100 Balance 1455 / 1455 1205 / 1205 100 / 100 Weight 87.4 kg Intake: IV 1455 / 1455 1205 / 1205 100 / 100 KCl Inj 10 MEQ In D5W Inj 1,000 1005 / 1005 1005 / 1005 ML @ 90 mls/hr IV.CONT . [id number] [facility] Rx#:[id number] Levaquin 750 mg Premix Inj 150 150 / 150 ML @ 100 mls/hr IV.SIG Q24H [facility] Rx#:[id number] KCl 20 mEq Premix Inj 20 meq In 200 / 200 100 ml @ 50 mls/hr IV.SIG Q2H [facility] Rx#:[id number] Flagyl 500 MG Inj 100 ML @ 100 100 / 100 200 / 200 100 / 100 mls/hr IV.SIG Q8H [facility] Rx#: [id number] Oral 0 / 0 Other: # Incontinent Voids 3 # Incontinent Bowel Movements 1 Narrative: Lying in bed, heart sounds regular rate rhythm, no murmurs Sleeping, easily woken, nonverbal, does not maintain eye contact, does not follow motor commands Results Procedures completed during hospitalization: Attempted NG tube placement Labs on day of discharge: Labs from last 24 hours 04/10/18 04/09/18 04:18 19:25 Sodium 148 H 149 H Potassium 3.0 L 3.2 L Chloride 108 H 112 H Carbon Dioxide 30.2 29.3 Anion Gap 10 8 BUN 10 12 Creatinine 0.71 0.70 Estimated GFR Greater than 89 Greater than 89 Random Glucose 112 H 98 Calcium 8.0 L 8.1 L Magnesium 2.0 Preliminary micro results at discharge 04/06/18 10:30 Aerobic Blood Culture - Preliminary Blood - Peripheral No growth in 4 days Anaerobic Blood Culture - Preliminary No growth in 4 days 04/06/18 10:30 Aerobic Blood Culture - Preliminary Blood - Peripheral No growth in 4 days Anaerobic Blood Culture - Preliminary No growth in 4 days - Impressions ITS Impressions Abdomen/Pelvis CT 04/06/18 00:00 CONCLUSION: 1. Distended gallbladder with significant inflammatory process surrounding it which extends to the hepatic flexure and involves parts of the colon wall highly concerning for acute cholecystitis. 2. Fecal impaction. 3. Probable chronic initial process both lung bases. Head CT 04/06/18 10:05 CONCLUSION: 1. Prominent but stable cerebral atrophy. 2. No acute intracranial abnormality or significant interval change. . Gallbladder Ultrasound 04/07/18 00:00 CONCLUSION: 1. Gallbladder wall thickening with cholelithiasis, sludge and pericholecystic fluid concerning for acute cholecystitis. 2. Nonvisualization of part of the left lobe of the liver. 3. 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 Head MRI 04/08/18 00:00 CONCLUSION: 1. Severe atrophy with enlargement of the CSF spaces. 2. No evidence of acute infarct, hemorrhage, mass or edema. Abdomen X-Ray 04/09/18 00:00 CONCLUSION: Nasogastric tube across the GE junction. Chest X-Ray 04/09/18 00:00 CONCLUSION: 1. Patchy mild bilateral parenchymal opacities not significantly changed. 2. Nasogastric tube tip is in the upper stomach. The sidehole is near the GE junction. Discharge Plan - Discharge Disposition Patient Disposition: [facility] Hosp[facility] Facility - Discharge Condition Condition: Fair - Discharge Order Discharge Orders: Discharge Order (Routine); Ordered 04/09/18 Ordered By: Apolinar Trotter - Discharge Details Anticipated Discharge Date: 04/06/18 - Physicians Team Primary Care Provider: Jose Hargrove Attending Provider: Apolinar Trotter Other Providers: Lam Sarah MD ; Amarilys Bennett MD ; Zane Iglesias MD
[2018-04-10] MEDS: Potassium Chlor 20 mEq Premix 20 MEQ/100 ML PIGGYBACK IV.SIG SCH ×2 (12:25→14:13)
[2018-04-10] MEDS: Enoxaparin Inj 40 MG/0.4 ML Syringe SQ SCH (15:58)
== END 2018-04-10 22:16 | disposition hospice, inpatient (51) ==
LOC: NEPE 09:51 → NEDA 09:51 → N04 15:30
PROVIDERS: ADMIT Hospitalist; ATTEND Hospitalist